=== PATIENT | male | born 1935 | race Caucasian/White ===

== ENCOUNTER 2016-11-17 13:51 | Emergency (ER) | payer OTHER, MEDICARE ==
[2016-11-17 13:59] VITALS: TEMP 97.6; BMI 28.7
--- NOTE | 2016-11-17 15:49 | PDOC ---
History of Present Illness - General Chief Complaint: Pain Stated Complaint: BLEEDING Time Seen by Provider: 11/17/16 14:50 History Source: Patient Exam Limitations: No Limitations - History of Present Illness Initial Comments: 11/17/16 15:49 81-year-old male presents to the ED with complaints of bleeding to the right inner aspect of foot after he took a shower while putting on his socks. Patient states that he applied pressure as Dr. Restrepo recommended since he has had this happen to him before in this specific area but bleeding did not stop and so called EMS. By the time EMS arrived bleeding has subsided but was brought here for further evaluation. Patient denies discomfort to the area, weakness, nausea , or dizziness. Patient states did not lose extremity amount of blood but curious why this has happened to him to 2 times prior. patient currently on aspirin. Timing/Duration: resolved prior to arrival Severity: mild Associated Symptoms: reports: denies symptoms Aspirin Received prior to arrival: Yes: 81 mg x 1 Past History - Past Medical History Allergies/Adverse Reactions: Allergies Allergy/AdvReac Type Severity Reaction Status Date / Time No Known Allergies Allergy Verified 11/17/16 13:54 Home Medications: Ambulatory Orders Ascorbate Calcium [Vitamin C] 1,000 mg PO DAILY 11/17/15 Aspirin Coated [Ecotrin -] 325 mg PO DAILY 11/17/15 Atorvastatin Ca [Lipitor -] 40 mg PO HS 11/17/15 Furosemide [Lasix -] 20 mg PO DAILY 11/17/15 Garlic 1,500 mg PO DAILY 11/17/15 Magnesium Oxide [Magnesium] 400 mg PO DAILY 11/17/15 Milk Thistle 500 mg PO BID 11/17/15 [place]-3S/Dha/Epa/Fish Oil [Fish Oil 1,200 mg Softgel] 1 each PO DAILY 11/17/15 Potassium Chloride [Klor-Con 10] 10 meq PO DAILY 11/17/15 Saw [place] 320 mg PO DAILY 11/17/15 Ubidecarenone/Vit E Acetate [Co Q-10 100 mg Softgel] 100 mg PO DAILY 11/17/15 Vitamin B Complex 1 each PO DAILY 11/17/15 Vitamin E 400 unit PO DAILY 11/17/15 Multivit-Min/FA/Lycopen/Lutein [Centrum Silver Tablet] 1 each PO DAILY 03/03/16 Tamsulosin HCl [Flomax] 0.4 mg PO DAILY 03/03/16 Valsartan/Hydrochlorothiazide [Valsartan-Hctz 160-12.5 mg Tab] 1 each PO DAILY 03/03/16 Acebutolol HCl [Sectral] 200 mg PO BID 11/17/16 Cancer: Yes (PROSTATE, BASAL CELL OF SKIN) Cardiac Disorders: Yes (PALPITATION, ARRYTHMIA) GI Disorders: Yes (GASTRITIS, HIATAL HERNIA, DIVERTICULOSIS, HEMORRHOIDS) Disorders: Yes (BPH) HTN: Yes Hypercholesterolemia: Yes - Surgical History Abdominal Surgery: Yes (PERFORATED STOMACH ULCER-PARTIAL GASTRECTOMY) - Immunization History Immunization Up to Date: Yes - Psycho/Social/Smoking Cessation Hx Anxiety: No Suicidal Ideation: No Smoking History: Former smoker Have you smoked in the past 12 months: No If you are a former smoker, when did you quit?: 30 YRS AGO Information on smoking cessation initiated: No Hx Alcohol Use: No Drug/Substance Use Hx: No Substance Use Type: None Patient Lives Alone: No Lives with/in: spouse/SO Review of Systems - Review of Systems Able to Perform ROS?: Yes Constitutional: No: Symptoms Reported HEENTM: No: Symptoms Reported Respiratory: No: Symptoms reported Cardiac (ROS): No: Symptoms Reported ABD/GI: No: Symptoms Reported : No: Symptoms Reported Musculoskeletal: No: Symptoms Reported Integumentary: Yes: Other Neurological: No: Symptoms reported Hematologic/Lymphatic: Yes: See HPI *Physical Exam - Vital Signs Last Vital Signs Temp Pulse Resp BP Pulse Ox 97.6 F 74 18 150/74 100 11/17/16 13:54 11/17/16 13:54 11/17/16 13:54 11/17/16 13:54 11/17/16 13:54 - Physical Exam General Appearance: Yes: Nourished, Appropriately Dressed. No: Apparent Distress HEENT: negative: Pale Conjunctivae Vascular Pulses: Dorsalis-Pedis (R): 2+ Extremity: positive: Normal Capillary Refill, Normal Inspection, Normal Range of Motion, Other (Noted multiple superficial varicosities to the aspect of right foot. No active bleeding from right inner heel where patient had bleeding prior to arrival). negative: Tender Integumentary: positive: Normal Color, Warm, Moist Neurologic: positive: Motor Strength 5/5 (ambulatory) Medical Decision Making - Medical Decision Making 11/17/16 15:50 Patient will bleeding varicosity that subsided prior to arrival. Patient is followed by Dr. Restrepo vascular surgeon due to superficial varicosities. Patient currently asymptomatic. Area redressed and cleansed. No active bleeding noted. Surgicel with Bioclusive placed in case bleeding reoccurs. 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 Please follow-up with Dr. Restrepo as discussed. Return to ED if symptoms recur.
[2016-11-17 16:10] VITALS: BP 132/72; PULSE 65
== END 2016-11-17 16:09 | disposition home or self-care (01) ==
LOC: JER 13:51
DX: I83.891 Varicose veins of right lower extremity with other complications (principal); Z87.891 Personal history of nicotine dependence; I10 Essential (primary) hypertension; R00.2 Palpitations; E78.00 Pure hypercholesterolemia, unspecified; Z85.46 Personal history of malignant neoplasm of prostate
CPT/HCPCS: 99283-25

== ENCOUNTER 2017-04-21 15:18 | Emergency (ER) | payer OTHER, MEDICARE ==
[2017-04-21 15:23] VITALS: BP 153/79; PULSE 82; TEMP 98.2; BMI 29.4
--- NOTE | 2017-04-21 15:50 | PDOC ---
History of Present Illness - General Chief Complaint: Pain Stated Complaint: URINARY COMPLICATIONS Time Seen by Provider: 04/21/17 15:27 History Source: Patient Exam Limitations: No Limitations - History of Present Illness Initial Comments: 04/21/17 15:33 CHIEF COMPLAINT: Red, irritations to the tip of the penis. HISTORY OF PRESENT ILLNESS: Patient is an 82 y/o male with history of HTN, high cholesterol basal cell carcinoma, prostate cancer. Patient presents with 2 day history of redness, irritation around the tip of the penis. Patient is uncircumcised, denies any sexual contact, denies any penile discharge or lesions. Denies urinary symptoms. NO back pain. Severity: Yes: mild Location: reports: genitalia Respiratory Risk Factors: reports: no cause identified Associated Symptoms: reports: other (fissures around the tip of the penis. ) Past History - Past Medical History Allergies/Adverse Reactions: Allergies Allergy/AdvReac Type Severity Reaction Status Date / Time No Known Allergies Allergy Verified 04/21/17 15:23 Home Medications: Ambulatory Orders Ascorbate Calcium [Vitamin C] 1,000 mg PO DAILY 11/17/15 Aspirin Coated [Ecotrin -] 325 mg PO DAILY 11/17/15 Atorvastatin Ca [Lipitor] 40 mg PO HS 11/17/15 Furosemide [Lasix -] 20 mg PO DAILY 11/17/15 Garlic 1,500 mg PO DAILY 11/17/15 Magnesium Oxide [Magnesium] 400 mg PO DAILY 11/17/15 Milk Thistle 500 mg PO BID 11/17/15 [place]-3S/Dha/Epa/Fish Oil [Fish Oil 1,200 mg Softgel] 1 each PO DAILY 11/17/15 Potassium Chloride [Klor-Con 10] 10 meq PO DAILY 11/17/15 Saw [place] 320 mg PO DAILY 11/17/15 Ubidecarenone/Vit E Acetate [Co Q-10 100 mg Softgel] 100 mg PO DAILY 11/17/15 Vitamin B Complex 1 each PO DAILY 11/17/15 Vitamin E 400 unit PO DAILY 11/17/15 Multivit-Min/FA/Lycopen/Lutein [Centrum Silver Tablet] 1 each PO DAILY 03/03/16 Tamsulosin HCl [Flomax -] 0.4 mg PO DAILY 03/03/16 Valsartan/Hydrochlorothiazide [Valsartan-Hctz 160-12.5 mg Tab] 1 each PO DAILY 03/03/16 Acebutolol HCl [Sectral] 200 mg PO BID 11/17/16 Nystatin Powder [Nystop Powder -] 30 gm TP TID #1 powder 04/21/17 Cancer: Yes (PROSTATE, BASAL CELL OF SKIN) Cardiac Disorders: Yes (PALPITATION, ARRYTHMIA) GI Disorders: Yes (GASTRITIS, HIATAL HERNIA, DIVERTICULOSIS, HEMORRHOIDS) Disorders: Yes (BPH) HTN: Yes Hypercholesterolemia: Yes - Surgical History Abdominal Surgery: Yes (PERFORATED STOMACH ULCER-PARTIAL GASTRECTOMY) - Immunization History Immunization Up to Date: Yes - Psycho/Social/Smoking Cessation Hx Anxiety: No Suicidal Ideation: No Smoking History: Former smoker Have you smoked in the past 12 months: No If you are a former smoker, when did you quit?: 40 YRS Information on smoking cessation initiated: No Hx Alcohol Use: No Drug/Substance Use Hx: No Substance Use Type: None Review of Systems - Review of Systems Constitutional: No: Symptoms Reported : No: Symptoms Reported Musculoskeletal: No: Symptoms Reported Integumentary: Yes: Erythema. No: Lesions, Rash Neurological: No: Symptoms reported Hematologic/Lymphatic: No: Symptoms Reported *Physical Exam - Vital Signs Last Vital Signs Temp Pulse Resp BP Pulse Ox 98.2 F 82 20 153/79 97 04/21/17 15:19 04/21/17 15:19 04/21/17 15:19 04/21/17 15:19 04/21/17 15:19 - Physical Exam General Appearance: Yes: Appropriately Dressed. No: Apparent Distress Gastrointestinal/Abdominal: positive: Normal Bowel Sounds, Soft. negative: Tender Male Genitalia: positive: normal genitalia, other (small areas of erythema with small fissures Irritation is superficial, there is no evidence of cellulitis. No swelling to tip of the penis.). negative: discharge, testicular tenderness, testicular mass, epididymus tender, inguinal hernia, hematuria Lymphatic: negative: Adenopathy Integumentary: positive: Erythema. negative: Rash, Swelling, Ecchymosis, Bruising Neurologic: positive: Alert, Normal Mood/Affect, Normal Response, Motor Strength 5/5 Medical Decision Making - Medical Decision Making 04/21/17 16:14 A/P : Patient here for evaluation of fissures to the tip of the penis. Most likely fungal in nature. Areas are tender. No open lesions. Will DC patient on nystatin powder. Follow up with dermatology or urology if symptoms are not getting better in two days. Patient verbalized understanding. Irritation is superficial, there is no evidence of cellulitis. No swelling to tip of the penis. *DC/Admit/Observation/Transfer Diagnosis at time of Disposition: Fissure in skin - Discharge Dispostion Disposition: HOME Condition at time of disposition: Stable Admit: No - Prescriptions Prescriptions: Nystatin Powder [Nystop Powder -] 30 gm TP TID #1 powder - Referrals Referrals: Enoc Pérez MD [Primary Care Provider] - Jabier Jackson MD [Staff Physician] - Shemar Hathaway [Non Staff, Medical] - (Dermatology [phone]) - Patient Instructions Additional Instructions: PLease keep area dry. No ointments or creams PLease apply powder three times a day. If symptoms do not start to resolve after 2-3 days, please follow-up with dermatology or urology.
== END 2017-04-21 16:07 | disposition home or self-care (01) ==
LOC: JERFT 15:18
DX: R23.4 Changes in skin texture (principal); I10 Essential (primary) hypertension; E78.00 Pure hypercholesterolemia, unspecified; Z85.46 Personal history of malignant neoplasm of prostate; Z85.828 Personal history of other malignant neoplasm of skin; N40.0 Benign prostatic hyperplasia without lower urinary tract symptoms; Z87.19 Personal history of other diseases of the digestive system
CPT/HCPCS: 99281-25

== ENCOUNTER 2017-05-09 06:48 | Emergency (ER) | payer OTHER, MEDICARE ==
[2017-05-09 07:19] VITALS: BP 144/70; PULSE 75; TEMP 97.5; BMI 30.4
--- NOTE | 2017-05-09 07:29 | PDOC ---
History of Present Illness - General History Source: Patient Exam Limitations: No Limitations - History of Present Illness Initial Comments: 05/09/17 07:43 The patient is a 82 year old male, with a significant past medical history of HTN, basal cell carcinoma, high cholesterol, BPH, and prostate CA, who presents to the emergency department with chest pain. The patient reports having an acute sudden onset of chest pain this morning around 4 am. He ranks his paina 6 /10 in pain intensity. The patient reports taking a treatment of nitro with good alleviation of pain. He denies any recent fevers, chills, headache or dizziness. He denies any recent nausea, vomit, diarrhea or constipation. He denies any recent shortness of breath. He denies any recent dysuria, frequency, urgency or hematuria. Allergies: NKA Past surgical history: See HPI Social History: Nonsmoker. Denies EtOH use and recreational drug use. 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: <Hero Hernandez - Last Filed: 05/09/17 11:02> <Sarahy Springer - Last Filed: 05/09/17 15:00> - General Chief Complaint: Chest Pain Stated Complaint: CHEST PAIN Time Seen by Provider: 05/09/17 07:15 Past History <Hero Hernandez - Last Filed: 05/09/17 11:02> - Past Medical History Cancer: Yes (PROSTATE, BASAL CELL OF SKIN) Cardiac Disorders: Yes (PALPITATION, ARRYTHMIA) GI Disorders: Yes (GASTRITIS, HIATAL HERNIA, DIVERTICULOSIS, HEMORRHOIDS) Disorders: Yes (BPH) HTN: Yes Hypercholesterolemia: Yes - Surgical History Abdominal Surgery: Yes (PERFORATED STOMACH ULCER-PARTIAL GASTRECTOMY) - Immunization History Immunization Up to Date: Yes - Psycho/Social/Smoking Cessation Hx Anxiety: No Suicidal Ideation: No Smoking History: Never smoked Have you smoked in the past 12 months: No If you are a former smoker, when did you quit?: 40 YRS Information on smoking cessation initiated: No Hx Alcohol Use: No Drug/Substance Use Hx: No Substance Use Type: None <Sarahy Springer - Last Filed: 05/09/17 15:00> - Past Medical History Allergies/Adverse Reactions: Allergies Allergy/AdvReac Type Severity Reaction Status Date / Time No Known Allergies Allergy Verified 05/09/17 07:03 Home Medications: Ambulatory Orders Ascorbate Calcium [Vitamin C] 1,000 mg PO DAILY 11/17/15 Aspirin Coated [Ecotrin -] 325 mg PO DAILY 11/17/15 Atorvastatin Ca [Lipitor] 40 mg PO HS 11/17/15 Furosemide [Lasix -] 20 mg PO Q48H 11/17/15 Garlic 1,500 mg PO DAILY 11/17/15 Magnesium Oxide [Magnesium] 400 mg PO DAILY 11/17/15 Milk Thistle 500 mg PO BID 11/17/15 [place]-3S/Dha/Epa/Fish Oil [Fish Oil 1,200 mg Softgel] 1 each PO DAILY 11/17/15 [place] 320 mg PO DAILY 11/17/15 Ubidecarenone/Vit E Acetate [Co Q-10 100 mg Softgel] 100 mg PO DAILY 11/17/15 Vitamin B Complex 1 each PO DAILY 11/17/15 Vitamin E 400 unit PO DAILY 11/17/15 Multivit-Min/FA/Lycopen/Lutein [Centrum Silver Tablet] 1 each PO DAILY 03/03/16 Valsartan/Hydrochlorothiazide [Valsartan-Hctz 160-12.5 mg Tab] 1 each PO BID 01/12 Review of Systems - Review of Systems Able to Perform ROS?: Yes Comments:: 05/09/17 07:41 GENERAL/CONSTITUTIONAL: No fever or chills. No weakness. HEAD, EYES, EARS, NOSE AND THROAT: No change in vision. No ear pain or discharge. No sore throat. CARDIOVASCULAR: +chest pain. No shortness of breath. RESPIRATORY: No cough, wheezing, or hemoptysis. GASTROINTESTINAL: No nausea, vomiting, diarrhea or constipation. GENITOURINARY: No dysuria, frequency, or change in urination. MUSCULOSKELETAL: No joint or muscle swelling or pain. No neck or back pain. SKIN: No rash NEUROLOGIC: No headache, vertigo, loss of consciousness, or change in strength/ sensation. ENDOCRINE: No increased thirst. No abnormal weight change. HEMATOLOGIC/LYMPHATIC: No anemia, easy bleeding, or history of blood clots. ALLERGIC/IMMUNOLOGIC: No hives or skin allergy. <Hero Hernandez - Last Filed: 05/09/17 11:02> *Physical Exam - Vital Signs Last Vital Signs Temp Pulse Resp BP Pulse Ox 97.5 F L 75 16 144/70 97 05/09/17 07:16 05/09/17 07:16 05/09/17 07:16 05/09/17 07:16 05/09/17 07:16 - Physical Exam Comments: 05/09/17 07:45 GENERAL: Awake, alert, and fully oriented, in no acute distress HEAD: No signs of trauma EYES: PERRLA, EOMI, sclera anicteric, conjunctiva clear ENT: Auricles normal inspection, hearing grossly normal, nares patent, oropharynx clear without exudates. Moist mucosa NECK: Normal ROM, supple, no lymphadenopathy, JVD, or masses LUNGS: Breath sounds equal, clear to auscultation bilaterally. No wheezes, and no crackles HEART: Regular rate and rhythm, normal S1 and S2, no murmurs, rubs or gallops. Well healed midline scars. ABDOMEN: Soft, nontender, normoactive bowel sounds. No guarding, no rebound. No masses. Well healed midline scars. EXTREMITIES: Normal range of motion, no edema. No clubbing or cyanosis. No cords, erythema, or tenderness NEUROLOGICAL: Cranial nerves II through XII grossly intact. Normal speech, normal gait SKIN: Warm, Dry, normal turgor, no rashes or lesions noted. <Hero Hernandez - Last Filed: 05/09/17 11:02> - Vital Signs Last Vital Signs Temp Pulse Resp BP Pulse Ox 97.5 F L 75 16 144/70 97 05/09/17 07:16 05/09/17 07:16 05/09/17 07:16 05/09/17 07:16 05/09/17 07:16 <Sarahy Springer - Last Filed: 05/09/17 15:00> ED Treatment Course - LABORATORY CBC & Chemistry Diagram: 05/09/17 07:52 05/09/17 07:52 - RADIOLOGY Radiograph Interpretation: 05/09/17 11:03 CHEST X_RAY impressions reported by : No acute disease in the chest. <Hero Hernandez - Last Filed: 05/09/17 11:02> - LABORATORY CBC & Chemistry Diagram: 05/09/17 07:52 05/09/17 07:52 <Sarahy Springer - Last Filed: 05/09/17 15:00> Medical Decision Making - Medical Decision Making 05/09/17 10:[address] Pérez via phone. Patient is well-known to him as well as Dr. Gerber. He was in Dr. Gerber's office 3 days ago. Will obtain second CE and if neg, will DC home. Discussed with patient, who agreed with plan. 05/09/17 12:20 Called to the bedside by patient, who was getting dressed, refused to stay for second enzyme. We had previously discussed it and he had agreed, but presently he wishes to leave. I explained that the workup is incomplete, and that the enzymes must be spaced by 6 hours, but he still refuses to stay. <Sarahy Springer - Last Filed: 05/09/17 15:00> *DC/Admit/Observation/Transfer - Attestations Scribe Attestion: 05/09/17 07:41 Documentation prepared by Hero Hernandez, acting as faculty i on call medical assistant for Sarahy Springer MD. <Hero Hernandez - Last Filed: 05/09/17 11:02> - Discharge Dispostion Admit: No <Sarahy Springer - Last Filed: 05/09/17 15:00> Diagnosis at time of Disposition: Chest pain Qualifiers: Chest pain type: unspecified Qualified Code(s): R07.9 - Chest pain, unspecified - Discharge Dispostion Disposition: HOME Condition at time of disposition: Stable - Referrals Referrals: Enoc Pérez MD [Primary Care Provider] - - Patient Instructions Printed Discharge Instructions: DI for Chest Pain Additional Instructions: FOLLOW UP WITH DR. PÉREZ IN 1-2 DAYS. RETURN TO THE ER IF YOU HAVE CHEST PAIN, SHORTNESS OF BREATH, OR ANY OTHER CONCERNING SYMPTOMS.
[2017-05-09 08:09] LABS: BASOPHIL 0.7 % (0-2.0); MCH 32.1 pg (25.7-33.7); MCHC 34.9 g/dl (32.0-35.9); MEAN PLT VOLUME 9.1 fl (7.5-11.1); NEUTROPHILS 59.8 % (42.8-82.8); PLATELET COUNT 118 K/MM3 (134-434); WHITE BLOOD COUNT 7.1 K/mm3 (4.0-10.0)
[2017-05-09 08:40] LABS: ALBUMIN 3.5 g/dl (3.4-5.0); ANION GAP 10 (8-16); BILIRUBIN,TOTAL 1.5 mg/dL (0.2-1.0); CALCIUM 8.1 mg/dL (8.5-10.1); CO2 29 mmol/L (21-32); CREATININE 0.7 mg/dL (0.7-1.3); GLUCOSE,RANDOM 103 mg/dL (74-106); SGPT/ALT 26 U/L (12-78); TOT PROT 6.2 g/dl (6.4-8.2)
[2017-05-09 08:43] LABS: ALK PHOS 59 U/L (45-117); CPK 140 IU/L (39-308); TROPONIN I 0.04 ng/ml (0.00-0.05)
[2017-05-09 08:46] LABS: SGOT/AST 24 U/L (15-37)
[2017-05-09] MEDS ORDERED: ACETAMINOPHEN 325 MG TABLET (FP) PO ONE (09:25)
[2017-05-09] MEDS ORDERED: ACETAMINOPHEN 325 MG TABLET (FP) ONE (09:28)
--- NOTE | 2017-05-09 09:41 | EKG ---
Test Reason : Blood Pressure : / mmHG Vent. Rate : 063 BPM Atrial Rate : 063 BPM P-R Int : 216 ms QRS Dur : 138 ms QT Int : 448 ms P-R-T Axes : 000 -11 -11 degrees QTc Int : 458 ms SINUS RHYTHM WITH 1ST DEGREE A-V BLOCK WITH PREMATURE ATRIAL COMPLEXES RIGHT BUNDLE BRANCH BLOCK MINIMAL VOLTAGE CRITERIA FOR LVH, MAY BE NORMAL VARIANT ABNORMAL ECG Confirmed by MD KYLIE, VIOLA ([id number]) on 05/09/2017 9:41:14 AM Referred By: Confirmed By:VIOLA ESPINAL MD
== END 2017-05-09 12:43 | disposition home or self-care (01) ==
LOC: JER 06:48
DX: R07.9 Chest pain, unspecified (principal); I10 Essential (primary) hypertension; N40.0 Benign prostatic hyperplasia without lower urinary tract symptoms; Z85.46 Personal history of malignant neoplasm of prostate; Z85.828 Personal history of other malignant neoplasm of skin; Z87.19 Personal history of other diseases of the digestive system; Z90.3 Acquired absence of stomach [part of]
CPT/HCPCS: 36415; 71010-TC; 80053; 83880; 84484; 85025; 93005; 93010; 99285-25

== ENCOUNTER 2017-07-26 07:23 | Day surgery (SDC) | payer OTHER, MEDICARE ==
[2017-07-23 11:51] VITALS: BMI 30.7
[2017-07-26] MEDS ORDERED: LIDOCAINE HCL/PF 1% SDV 5ML VIAL ONE (08:41)
[2017-07-26] MEDS ORDERED: PROPOFOL 20 ML ONE ×2 (08:41)
[2017-07-26 09:47] VITALS: TEMP 97.6
[2017-07-26 14:16] VITALS: BP 132/77; PULSE 63
--- NOTE | 2017-07-27 12:11 | PATH ---
Surgical Pathology Report Patient Name: CHASITY DAILEY [facility]. Rec. #: [id number] /Age/Gender: 1935 (Age: 82) / M Account: [id number] Location: U-ENDOSCOPY Taken: 07/26/2017 Received: 07/26/2017 Reported: 07/27/2017 Physicians: Lennox Mott M.D. Specimen(s) Received A: BX RECTAL POLYP B: BX DESCENDING COLON POLYP Clinical History Preoperative diagnosis: Constipation, colon cancer screening Postoperative diagnosis: Colon polyps, diverticulosis left colon Final Diagnosis A. COLON, RECTUM, BIOPSY: HYPERPLASTIC POLYP. B. COLON, DESCENDING, BIOPSY: COLONIC MUCOSA WITH BENIGN SUBMUCOSAL LYMPHOID AGGREGATE. NO ADENOMATOUS CHANGE IS IDENTIFIED. Electronically Signed Jose Antonio Gallardo M.D. Gross Description A. Received in formalin, labeled "biopsy rectal polyp" are 2 holcomb, irregular portions of soft tissue measuring 0.2 and 0.3 cm. in greatest dimension. The specimens are submitted in toto in one cassette. B. Received in formalin, labeled "biopsy descending colon polyp" is a holcomb, irregular portion of soft tissue measuring 0.3 cm. in greatest dimension. The specimen is submitted in toto in one cassette. 07/26/2017 saudi07/26/2017
== END 2017-07-26 12:10 | disposition home or self-care (01) ==
LOC: JASU-ENDO 07:23
PROVIDERS: ATTEND Internal Medicine Gastroenterology
PROC: 0DBP8ZX Excision of Rectum, Via Natural or Artificial Opening Endoscopic, Diagnostic (ICD-10-PCS; 2017-07-26)
PROC: 0DBM8ZX Excision of Descending Colon, Via Natural or Artificial Opening Endoscopic, Diagnostic (ICD-10-PCS; principal; 2017-07-26 09:00)
DX: Z12.11 Encounter for screening for malignant neoplasm of colon (principal); K62.1 Rectal polyp; K64.8 Other hemorrhoids; K63.5 Polyp of colon; D12.4 Benign neoplasm of descending colon
CPT/HCPCS: 88305-TC

== ENCOUNTER 2018-01-28 05:18 | Observation (INO) | payer OTHER, MEDICARE ==
--- NOTE | 2018-01-28 05:20 | PDOC ---
History of Present Illness - General Chief Complaint: Urinary Problem Stated Complaint: BURNING ON URINATION Time Seen by Provider: 01/28/18 05:20 Exam Limitations: Language Barrier (Patient is mainly [place] speaking) - History of Present Illness Initial Comments: 01/28/18 05:43 This 82-year-old male with a history of HTN/HLD/BPH/prostate carcinoma/ diverticular disease presents with a few week history of worsening lower abdominal pain and a few day history of dysuria/urinary frequency/urinary urgency. Patient describes pain as being in both lower quadrants, radiating to the flanks. He states that he was unable to sleep much last night secondary to the persistent discomfort in his lower abdomen. Patient last had 400 mg ibuprofen at 11:30 PM last night, taken for his pain (patient states that "it did not help much") Patient denies nausea/vomiting/fever or chills. He states that he has chronic constipation, worse for the last few weeks and has pain in his lower abdomen when bearing down. He has not had any blood per rectum or black stools. He has had decreased appetite but no weight loss. Patient has history of surgery for ulcers approximately 30 years ago. He denies chest pain, shortness of breath, cough Patient had MRI study of the lumbar spine yesterday to investigate his lower abdominal/pelvic pain Medications as noted No known ALLERGIES Patient is a former smoker (none 40 years). He denies alcohol or other recreational drug use. Patient lives alone Patient's PMD is Dr. Pérez Patient's real estate administrator is Dr Domingo Past History - Past Medical History Allergies/Adverse Reactions: Allergies Allergy/AdvReac Type Severity Reaction Status Date / Time No Known Allergies Allergy Verified 05/09/17 07:03 Home Medications: Ambulatory Orders Ascorbate Calcium [Vitamin C] 1,000 mg PO DAILY 11/17/15 Aspirin Coated [Ecotrin -] 325 mg PO DAILY 11/17/15 Atorvastatin Ca [Lipitor] 40 mg PO HS 11/17/15 Furosemide [Lasix -] 20 mg PO Q48H 11/17/15 Garlic 1,000 mg PO DAILY 11/17/15 Milk Thistle 500 mg PO BID 11/17/15 Saw [place] 320 mg PO DAILY 11/17/15 Vitamin B Complex 1 each PO DAILY 11/17/15 Vitamin E 400 unit PO DAILY 11/17/15 Multivit-Min/FA/Lycopen/Lutein [Centrum Silver Tablet] 1 each PO DAILY 03/03/16 Coenzyme K98-t-Ufgkndnsf-Cth E [Co Q-10 with l-Carnitine Sftgl] 1 each PO DAILY 07/23/17 Potassium Chloride [Klor-Con 10] 10 meq PO DAILY 07/23/17 Sectral 1 tab PO BID 07/23/17 Tamsulosin HCl [Flomax] 0.4 mg PO DAILY 07/23/17 [place]-3S/Dha/Epa/Fish Oil [Fish Oil 1,200 mg Softgel] 1 each PO DAILY 01/28/18 Sodium Chloride Tablet - 1 gm PO BID #14 tablet 01/29/18 Sodium Chloride Tablet - 1 gm PO BID #20 tablet 01/29/18 Valsartan [Diovan] 160 mg PO DAILY tablet 01/29/18 Valsartan [Diovan] 160 mg PO DAILY #30 tablet 01/29/18 Valsartan [Diovan] 160 mg PO DAILY #30 tablet 01/29/18 Anemia: No Asthma: No Cancer: Yes (PROSTATE, BASAL CELL OF SKIN) Cardiac Disorders: Yes (PALPITATION, ARRYTHMIA,ASHD CARDIAC CATH AND PES) CVA: No COPD: No CHF: No Dementia: No Diabetes: No GI Disorders: Yes (GASTRITIS, HIATAL HERNIA, DIVERTICULOSIS, HEMORRHOIDS;FUNDAL ULCER) Disorders: Yes (BPH) HTN: Yes Hypercholesterolemia: Yes Liver Disease: No Seizures: No Thyroid Disease: No - Surgical History Abdominal Surgery: Yes (PERFORATED STOMACH ULCER-PARTIAL GASTRECTOMY) Appendectomy: Yes Cardiac Surgery: No Cholecystectomy: No Lung Surgery: No Neurologic Surgery: No Orthopedic Surgery: No - Immunization History Immunization Up to Date: Yes - Suicide/Smoking/Psychosocial Hx Smoking History: Former smoker Have you smoked in the past 12 months: No If you are a former smoker, when did you quit?: 40 YRS Hx Alcohol Use: No Drug/Substance Use Hx: No Substance Use Type: None Hx Substance Use Treatment: No Review of Systems - Review of Systems Able to Perform ROS?: Yes Comments:: 12 point review of systems is negative except for what is noted in the history of present illness *Physical Exam - Physical Exam Comments: GENERAL: Elderly man, mainly [place] speaking, alert and oriented 3, in no acute distress HEAD: Normal with no signs of trauma. EYES: PERRLA, EOMI, sclera anicteric, conjunctiva clear. ENT: Ears normal, nares patent, oropharynx clear without exudates. Moist mucous membranes. NECK: Normal range of motion, supple without lymphadenopathy, JVD, or masses. LUNGS: Breath sounds equal, clear to auscultation bilaterally. No wheezes, and no crackles. HEART:Regular rate and rhythm, normal S1 and S2 without murmur, rub or gallop. ABDOMEN:.normal bowel sounds. Moderate bilateral lower quadrant tenderness without guarding or rebound.No masses No distention. EXTREMITIES: Normal range of motion, no edema. No clubbing or cyanosis. No erythema, or tenderness. Moderate nonpitting edema with venous stasis changes right greater than left lower leg NEUROLOGICAL: Cranial nerves II through XII grossly intact. Normal speech. No focal neurological deficits. MUSCULOSKELETAL: Mild tenderness to palpation sacroiliac spine bilaterally; no CVA/flank tenderness SKIN: Warm, Dry, normal turgor, no rashes or lesions noted. ED Treatment Course - LABORATORY CBC & Chemistry Diagram: 01/29/18 07:39 01/29/18 07:39 Medical Decision Making - Medical Decision Making 82-year-old man presents with a few week history of progressive bilateral lower abdominal discomfort and a few day history of urinary frequency/dysuria. Patient is afebrile ; abdominal exam notable for mild to moderate bilateral lower quadrant tenderness without peritoneal irritation signs. While urinary symptoms are very suggestive of urinary tract infection, in light of patient's history of diverticular disease, acute diverticulitis also possibility.Mesenteric ischemia also possible in this elderly patient with HTN/ HLD CBC/chemistry profile/UA sent. Review of patient's previous imaging study shows normal abdominal/pelvic CT 12/25; no evidence of acute diverticulitis or other acute injury or abdominal/ intrapelvic pathology. In light of worsening pain and bilateral lower abdominal tenderness, repeat abdominal/pelvic CT will be performed. MRI of lumbar spine performed yesterday has not yet been interpreted. 01/28/18 07:09 Care of this patient signed out to Dr Mejia at end of shift. *DC/Admit/Observation/Transfer Diagnosis at time of Disposition: Dilutional hyponatremia - Discharge Dispostion Disposition: HOME Condition at time of disposition: Stable - Prescriptions - Referrals - Patient Instructions - Post Discharge Activity
[2018-01-28 06:17] LABS: BASO % 0.7 % (0-2.0); EOS % 0.8 % (0-4.5); HEMATOCRIT 40.2 % (35.4-49); HEMOGLOBIN 14.6 GM/dL (11.7-16.9); LYMPH % 22.8 % (8-40); MCH 32.7 pg (25.7-33.7); MCHC 36.4 g/dl (32.0-35.9); MEAN CELL VOLUME 89.9 fl (80-96); MEAN PLT VOLUME 9.6 fl (7.5-11.1); MONO % 12.9 % (3.8-10.2); NEUT % 62.8 % (42.8-82.8); PLATELET COUNT 148 K/MM3 (134-434); RBC 4.47 M/mm3 (4.00-5.60); RDW 12.7 % (11.9-15.9); WHITE BLOOD COUNT 5.3 K/mm3 (4.0-10.0)
[2018-01-28 06:47] LABS: URINE APPEARANCE CLEAR; URINE BILIRUBIN NEGATIVE (<2.0 mg/dL); URINE COLOR LTYELLOW; URINE GLUCOSE (UA) NEGATIVE (NEGATIVE); URINE KETONE NEGATIVE (NEGATIVE); URINE LEUK ESTERASE NEGATIVE (NEGATIVE); URINE NITRITE NEGATIVE (NEGATIVE); URINE PROTEIN NEGATIVE (NEGATIVE); URINE UROBILINOGEN NEGATIVE mg/dL (0.2-1.0)
[2018-01-28 07:03] LABS: ALK PHOS 76 U/L (45-117); ANION GAP 10 (8-16); BLOOD UREA NITROGEN 14 mg/dL (7-18); CALCIUM 9.1 mg/dL (8.5-10.1); CHLORIDE 84 mmol/L (98-107); CO2 29 mmol/L (21-32); CREATININE 0.7 mg/dL (0.7-1.3); GLUCOSE,RANDOM 100 mg/dL (74-106); POTASSIUM 3.7 mmol/L (3.5-5.1); SGOT/AST 29 U/L (15-37); SGPT/ALT 28 U/L (12-78)
[2018-01-28] MEDS ORDERED: KETOROLAC TROMETHAMINE 30 MG/1 ML VIAL IVPUSH ONE (07:07)
[2018-01-28 07:08] LABS: SODIUM 123 mmol/L (136-145)
[2018-01-28] MEDS ORDERED: KETOROLAC TROMETHAMINE 30 MG/1 ML VIAL ONE (07:11)
--- NOTE | 2018-01-28 10:24 | PDOC ---
*Physical Exam - Vital Signs Last Vital Signs Temp Pulse Resp BP Pulse Ox 97.6 F 62 16 157/78 99 01/28/18 05:20 01/28/18 05:20 01/28/18 05:20 01/28/18 05:20 01/28/18 05:20 - Physical Exam Comments: 01/28/18 10:20 Care received at 0700 Briefly, pt here for months of b/l lower abd pain, worse overnight waking him out of sleep Pt is tender in lower quadrants b/l Pt ordered for CTAP, pending study Thus far, labs remarkable for hyponatremia to 123 which is new Spoke to his PMD Dr. Pérez, pt's sodium was 135 in November 2017 Pt admits to drinking 1 gallon of water per day, he appears euvolemic at this time Like hyponatremic 2/2 excessive water intake Will fluid restrict, admit In meantime, awaiting CTAP read for admission 01/28/18 11:24 CTAP not read yet, reading room called with no hot die picker discussed with receptionist secretary, she will check in with radiologists 01/28/18 12:43 CTAP wnl. Case discussed with ANJELICA Petty, pt accepted for admission Case discussed in detail with admitting physician including history, physical exam and ancillary studies. Admitting physician has assumed care for the patient, will follow all pending diagnostics and will complete the evaluation and treatment. ED Treatment Course - LABORATORY CBC & Chemistry Diagram: 01/28/18 05:50 01/28/18 05:50 - ADDITIONAL ORDERS Additional order review: Laboratory Results 01/28/18 01/28/18 05:50 05:30 Sodium 123 L* Potassium 3.7 Chloride 84 L Carbon Dioxide 29 Anion Gap 10 BUN 14 Creatinine 0.7 Creat Clearance w eGFR > 60 Random Glucose 100 Calcium 9.1 Total Bilirubin 1.0 D AST 29 D ALT 28 Alkaline Phosphatase 76 D Total Protein 7.0 Albumin 4.0 Urine Color Ltyellow Urine Appearance Clear Urine pH 7.0 Ur Specific [place] 1.011 Urine Protein Negative Urine Glucose (UA) Negative Urine Ketones Negative Urine Blood Negative Urine Nitrite Negative Urine Bilirubin Negative Urine Urobilinogen Negative Ur Leukocyte Esterase Negative 01/28/18 05:50 RBC 4.47 MCV 89.9 MCHC 36.4 H RDW 12.7 MPV 9.6 Neutrophils % 62.8 Lymphocytes % 22.8 Monocytes % 12.9 H Eosinophils % 0.8 Basophils % 0.7 - Medications Given in the ED: ED Medications Discontinued Medications Generic Name Dose Route Start Last Admin Trade Name Linda PRN Reason Stop Dose Admin Ketorolac Tromethamine 30 mg 01/28/18 07:07 01/28/18 07:15 Toradol Injection - IVPUSH 01/28/18 07:08 30 mg ONCE ONE Administration *DC/Admit/Observation/Transfer Diagnosis at time of Disposition: Dilutional hyponatremia - Discharge Dispostion Condition at time of disposition: Stable Decision to Admit order: Yes - Referrals - Patient Instructions - Post Discharge Activity - Attestations Physician Attestion: 01/28/18 12:43 I, Dr. Guicho Mejia MD, attest that this document has been prepared under my direction and personally reviewed by me in its entirety. I further attest, that it accurately reflects all work, treatment, procedures and medical decision -making performed by me.
[2018-01-28] MEDS ORDERED: ACETAMINOPHEN INJECTION 100 ML IVPB ONE (10:48)
[2018-01-28] MEDS ORDERED: ACETAMINOPHEN 1000 MG/100 ML VIAL (NON FORMULARY) IVPB ONE (10:53)
[2018-01-28] MEDS ORDERED: MAGNESIUM CITRATE 300 ML BOTTLE PO ONE (12:43)
[2018-01-28] MEDS ORDERED: MAGNESIUM CITRATE 300 ML BOTTLE ONE (12:58)
--- NOTE | 2018-01-28 13:50 | HP ---
Admitting History and Physical - Primary Care Physician PCP: Enoc Pérez - Admission Chief Complaint: abdominal pain History of Present Illness: This is an 82 year old male with pmhx of HTN/HLD/BPH/prostate carcinoma/ diverticular disease presented with worsening lower abdominal pain now radiating to the low back. Per ED record, pt took ibuprofen without much help, he also has chronic constipation which has been worse in the past few weeks causing lower abdominal pain when he bears down. States he had hernia surgery several years ago. Patient had MRI study of the lumbar spine yesterday to investigate his lower abdominal/pelvic pain Patient's PMD is Dr. Pérez Patient's collection officer is Dr Domingo History Source: Patient, Medical Record Limitations to Obtaining History: No Limitations - Past Medical History Cardiovascular: Yes: HTN, Hyperlipdemia Gastrointestinal: Yes: Diverticulosis Renal/: Yes: BPH Heme/Onc: Yes: Other (prostate ca) - Past Surgical History Past Surgical History: Yes: Hernia Repair - Smoking History Smoking history: Former smoker Have you smoked in the past 12 months: No If you are a former smoker, when did you quit?: 40 YRS - Alcohol/Substance Use Hx Alcohol Use: No History of Substance Use: reports: None - Social History Usual Living Arrangement: Yes: Alone ADL: Independent Home Medications - Allergies Allergies/Adverse Reactions: Allergies Allergy/AdvReac Type Severity Reaction Status Date / Time No Known Allergies Allergy Verified 05/09/17 07:03 - Home Medications Home Medications: Ambulatory Orders Ascorbate Calcium [Vitamin C] 1,000 mg PO DAILY 11/17/15 Aspirin Coated [Ecotrin -] 325 mg PO DAILY 11/17/15 Atorvastatin Ca [Lipitor] 40 mg PO HS 11/17/15 Furosemide [Lasix -] 20 mg PO Q48H 11/17/15 Garlic 1,000 mg PO DAILY 11/17/15 Milk Thistle 500 mg PO BID 11/17/15 Saw [place] 320 mg PO DAILY 11/17/15 Vitamin B Complex 1 each PO DAILY 11/17/15 Vitamin E 400 unit PO DAILY 11/17/15 Multivit-Min/FA/Lycopen/Lutein [Centrum Silver Tablet] 1 each PO DAILY 03/03/16 Coenzyme V06-d-Jjdjbebki-Ycm E [Co Q-10 with l-Carnitine Sftgl] 1 each PO DAILY 07/23/17 Potassium Chloride [Klor-Con 10] 10 meq PO DAILY 07/23/17 Sectral 1 tab PO BID 07/23/17 Tamsulosin HCl [Flomax] 0.4 mg PO DAILY 07/23/17 Valsartan/Hydrochlorothiazide [Valsartan-Hctz 160-12.5 mg Tab] 1 each PO BID [place]-3S/Dha/Epa/Fish Oil [Fish Oil 1,200 mg Softgel] 1 each PO DAILY 01/28/18 Review of Systems - Review of Systems Constitutional: reports: No Symptoms Eyes: reports: No Symptoms HENT: reports: No Symptoms Neck: reports: No Symptoms Cardiovascular: reports: No Symptoms Respiratory: reports: No Symptoms Gastrointestinal: reports: Abdominal Pain Genitourinary: reports: No Symptoms Musculoskeletal: reports: Back Pain Integumentary: reports: No Symptoms Neurological: reports: No Symptoms Endocrine: reports: No Symptoms Hematology/Lymphatic: reports: No Symptoms Psychiatric: reports: No Symptoms Physical Examination Vital Signs: Vital Signs Temperature 97.6 F 01/28/18 11:11 Pulse Rate 65 01/28/18 11:11 Respiratory Rate 16 01/28/18 11:11 Blood Pressure 179/85 01/28/18 11:11 O2 Sat by Pulse Oximetry (%) 99 01/28/18 11:11 Constitutional: Yes: No Distress Eyes: Yes: Conjunctiva Clear HENT: Yes: Atraumatic Neck: Yes: Supple Cardiovascular: Yes: Regular Rate and Rhythm, S1, S2 Respiratory: Yes: Regular, CTA Bilaterally Gastrointestinal: Yes: Normal Bowel Sounds, Soft, Other (midline incision, reproducible hernia) Renal/: Yes: WNL Musculoskeletal: Yes: Back Pain Extremities: Yes: WNL Edema: Yes Edema: LLE: Trace, RLE: Trace Neurological: Yes: Alert, Oriented, Cran Nerves II-XII Intact Psychiatric: Yes: Alert, Oriented Labs: CBC, BMP 01/28/18 05:50 01/28/18 05:50 Imaging - Results Chest X-ray: Report Reviewed Problem List - Problems (1) Lower abdominal pain Code(s): R10.30 - LOWER ABDOMINAL PAIN, UNSPECIFIED (2) Dilutional hyponatremia Code(s): E87.1 - HYPO-OSMOLALITY AND HYPONATREMIA Assessment/Plan Assessment: 82 year old male presented with abdominal pain, found to be hyponatremic Plan: 1. Hyponatremia - Pt is asymptomatic - Pt states he drink 1 gl of water /day as told for constipation - Fluid restrict 1L - Start salt tabs 1mg bid - Send urine and serum osm, urine sodium - Recheck bmp today at 1800 - Hold home diuretics - Nephrology to see 2. Lower abdominal pain - Due to constipation, ctap neg for acute pathology - Mag citrate given in ED 3. HTN - Hold HCTZ, Lasix - Continue losartan 160mg daily 4. DVT - Lovenox sq Visit type - Emergency Visit Emergency Visit: Yes Care time: The patient presented to the Emergency Department on the above date and was hospitalized for further evaluation of their emergent condition. - New Patient This patient is new to me today: Yes Date on this admission: 01/28/18 - Critical Care Critical Care patient: No Hospitalist Screening - Colonoscopy Questionnaire Colonoscopy Questionnaire: Colonoscopy Questionnaire - Patient: 50 - 75 years old and never had a screening colonoscopy: Unknown History of colon or rectal polyps, or CA: Unknown History of IBD, Crohn's disease or UC: Unknown History of abdominal radiation therapy as a child: Unknown - Relative: 1 with colon or rectal CA, or polyps at age 60 or younger: Unknown Colon or rectal CA diagnosed at age 45 or younger: Unknown Multiple relatives with colon or rectal CA: Unknown - Outcome: Screening Result: Negative Screen
[2018-01-28] MEDS ORDERED: VALSARTAN 160 MG TABLET (UD) PO SCH (13:57)
[2018-01-28 16:03] VITALS: BMI 28.3
--- NOTE | 2018-01-28 17:36 | CONSULT ---
Consult - text type - Consultation Consultation Note: Renal Consult for Hyponatreima Home Medications Medication Instructions Recorded Ascorbate Calcium [Vitamin C] 1,000 mg PO DAILY 11/17/15 Aspirin Coated [Ecotrin -] 325 mg PO DAILY 11/17/15 Atorvastatin Ca [Lipitor] 40 mg PO HS 11/17/15 Furosemide [Lasix -] 20 mg PO Q48H 11/17/15 Garlic 1,000 mg PO DAILY 11/17/15 Milk Thistle 500 mg PO BID 11/17/15 Saw [place] 320 mg PO DAILY 11/17/15 Vitamin B Complex 1 each PO DAILY 11/17/15 Vitamin E 400 unit PO DAILY 11/17/15 Multivit-Min/FA/Lycopen/Lutein 1 each PO DAILY 03/03/16 [Centrum Silver Tablet] Coenzyme G23-r-Jexlzrxjh-Tdg E [Co 1 each PO DAILY 07/23/17 Q-10 with l-Carnitine Sftgl] Potassium Chloride [Klor-Con 10] 10 meq PO DAILY 07/23/17 Sectral 1 tab PO BID 07/23/17 Tamsulosin HCl [Flomax] 0.4 mg PO DAILY 07/23/17 Valsartan/Hydrochlorothiazide 1 each PO BID 07/23/17 [Valsartan-Hctz 160-12.5 mg Tab] [place]-3S/Dha/Epa/Fish Oil [Fish 1 each PO DAILY 01/28/18 Oil 1,200 mg Softgel] Vital Signs Temperature 97.6 F 01/28/18 15:52 Pulse Rate 63 01/28/18 15:52 Respiratory Rate 18 01/28/18 15:52 Blood Pressure 170/69 01/28/18 15:52 O2 Sat by Pulse Oximetry (%) 99 01/28/18 11:11 Intake & Output 01/25/18 01/26/18 01/27/18 01/28/18 23:59 23:59 23:59 23:59 Intake Total 300 Output Total 550 Balance -250 Weight 87.101 kg CBC, BMP 01/28/18 05:50 01/28/18 05:50 Current Medications Acetaminophen (Ofirmev Injection -) 1,000 mg IVPB Q6H PRN PRN Reason: PAIN LEVEL 1-5 Aspirin (Ecotrin -) 325 mg PO DAILY SIDNEY Atorvastatin Calcium (Lipitor -) 40 mg PO HS SIDNEY Enoxaparin Sodium (Lovenox -) 40 mg SQ DAILY SIDNEY Sodium Chloride (Sodium Chloride Tablet -) 1 gm PO BID SIDNEY Tamsulosin HCl (Flomax -) 0.4 mg PO DAILY@0830 SIDNEY Valsartan (Diovan -) 160 mg PO DAILY SIDNEY #Evolemic Hyponatremia r/o SIADH vs. ADH release in setting of Thaizide diuretic Urine and serum OSM pending continue fluid restriction repeat BMP this evening on salt tabs BID no indication for 3% saline would d/c HCTZ from outpatient meds Thank you Aric Turner DO full consult pending
[2018-01-28] MEDS: SODIUM CHLORIDE 1 GM TABLET PO SCH ×2 (17:37→21:29)
[2018-01-28 18:56] LABS: ANION GAP 6 (8-16); BLOOD UREA NITROGEN 12 mg/dl (7-18); CALCIUM 8.8 mg/dl (8.4-10.2); CHLORIDE 84 mmol/L (98-107); CO2 32 mmol/L (22-28); GLUCOSE,RANDOM 103 mg/dl (74-106); POTASSIUM 3.7 mmol/L (3.5-5.1)
[2018-01-28 19:05] LABS: SODIUM 122 mmol/L (136-145)
[2018-01-28 19:09] LABS: CREATININE < 0.8 mg/dl (0.6-1.3)
[2018-01-28] MEDS: ACETAMINOPHEN 1000 MG/100 ML VIAL (NON FORMULARY) IVPB PRN (21:03)
[2018-01-28] MEDS ORDERED: ATORVASTATIN CA 40 MG TABLET (FP) PO SCH (22:00)
[2018-01-29] MEDS: ACETAMINOPHEN 1000 MG/100 ML VIAL (NON FORMULARY) IVPB PRN (03:30)
[2018-01-29 07:07] VITALS: BP 147/63; PULSE 57; TEMP 97.9
[2018-01-29 07:56] LABS: BASO % 0.5 % (0-2.0); EOS % 0.8 % (0-4.5); HEMATOCRIT 42.6 % (35.4-49); HEMOGLOBIN 14.6 GM/dl (11.7-16.9); LYMPH % 21.2 % (8-40); MCH 32.5 pg (25.7-33.7); MCHC 34.3 g/dl (32.0-35.9); MEAN CELL VOLUME 94.7 fl (80-96); MEAN PLT VOLUME 8.4 fl (7.5-11.1); MONO % 13.2 % (3.8-10.2); NEUT % 64.3 % (42.8-82.8); PLATELET COUNT 142 K/MM3 (134-434); WHITE BLOOD COUNT 5.2 K/mm3 (4.0-10.8)
[2018-01-29] MEDS ORDERED: TAMSULOSIN HCL 0.4 MG CAP.ER.24H (FP) PO SCH (08:30)
[2018-01-29 08:34] LABS: ANION GAP 7 (8-16); BLOOD UREA NITROGEN 11 mg/dl (7-18); CALCIUM 8.7 mg/dl (8.4-10.2); CHLORIDE 90 mmol/L (98-107); CO2 30 mmol/L (22-28); GLUCOSE,RANDOM 108 mg/dl (74-106); MAGNESIUM 2.2 mg/dL (1.8-2.4); PHOSPHOROUS 3.5 mg/dl (2.5-4.6); POTASSIUM 3.4 mmol/L (3.5-5.1); SODIUM 127 mmol/L (136-145)
[2018-01-29 08:39] LABS: CREATININE < 0.8 mg/dl (0.6-1.3)
[2018-01-29] MEDS ORDERED: POTASSIUM CHLORIDE TABS 20 MEQ TABLET.ER (FP) PO ONE (09:05)
--- NOTE | 2018-01-29 09:20 | DS ---
Physical Exam: SUBJECTIVE: Patient seen and examined OBJECTIVE: Vital Signs Period Temp Pulse Resp BP Sys/Jean-Baptiste Pulse Ox Last 24 Hr 97.6 F-98.0 F 57-66 16-18 147-179/61-85 99-99 PHYSICAL EXAM GENERAL: The patient is awake, alert, and fully oriented, in no acute distress. HEAD: Normal with no signs of trauma. EYES: PERRL, extraocular movements intact, sclera anicteric, conjunctiva clear. ENT: Ears normal, nares patent, oropharynx clear without exudates, moist mucous membranes. NECK: Trachea midline, full range of motion, supple. LUNGS: Breath sounds equal, clear to auscultation bilaterally, no wheezes, no crackles, no accessory muscle use. HEART: Regular rate and rhythm, S1, S2 without murmur, rub or gallop. ABDOMEN: Soft, nontender, nondistended, normoactive bowel sounds, no guarding, no rebound, no hepatosplenomegaly, no masses. EXTREMITIES: 2+ pulses, warm, well-perfused, no edema. NEUROLOGICAL: Cranial nerves II through XII grossly intact. Normal speech, gait not observed. PSYCH: Normal mood, normal affect. SKIN: Warm, dry, normal turgor, no rashes or lesions noted. LABS Laboratory Results - last 24 hr 01/28/18 01/28/18 01/28/18 14:12 14:12 16:00 WBC RBC Hgb Hct MCV MCH MCHC RDW Plt Count MPV Neutrophils % Lymphocytes % Monocytes % Eosinophils % Basophils % Sodium 122 L* Potassium 3.7 Chloride 84 L Carbon Dioxide 32 H Anion Gap 6 L BUN 12 Creatinine < 0.8 Random Glucose 103 Serum Osmolality 253 L Calcium 8.8 Phosphorus Magnesium Urine Osmolality 364 Ur Random Sodium 36 01/29/18 01/29/18 07:39 07:39 WBC 5.2 RBC 4.50 Hgb 14.6 Hct 42.6 MCV 94.7 MCH 32.5 MCHC 34.3 RDW 12.0 Plt Count 142 MPV 8.4 Neutrophils % 64.3 Lymphocytes % 21.2 Monocytes % 13.2 H Eosinophils % 0.8 Basophils % 0.5 Sodium 127 L Potassium 3.4 L Chloride 90 L Carbon Dioxide 30 H Anion Gap 7 L BUN 11 Creatinine < 0.8 Random Glucose 108 H Serum Osmolality Calcium 8.7 Phosphorus 3.5 Magnesium 2.2 Urine Osmolality Ur Random Sodium HOSPITAL COURSE: Date of Admission:01/28/18 Date of Discharge: 01/29/18 Discharge Summary Reason For Visit: HYPONATREMIA Current Active Problems Dilutional hyponatremia (Acute) Lower abdominal pain (Acute) Condition: Stable - Instructions Diet, Activity, Other Instructions: Mr. Red: You were admitted to [facility] on 01/28/2018 for hyponatremia ( low sodium in the blood). Your blood sodium count has improved but we have made a few changes/additions to your medications: 1. STOP taking the Vasartan/Hydroclorothiozide medication, START taking Diovan 160mg daily for hypertension, it has been called into your pharmacy. 2. START taking salt tablets: Sodium 1 gram tablets in the morning and in the evenings, take this medication for at least 1 week and have repeat blood levels done with your primary care doctor next week. 3. Limit the amount of water that you are drinking to 1 liter per day until you have repeat blood work. For your right hip discomfort, we recommend that you take Tylenol 650mg every 6- 8 hours and apply Bengay. We have applied a LIdoderm Patch to your right hip to help with the discomfort. These can be purchased over the counter and are called "Lidocaine Patches". Please see Dr. Pérez next week for follow up. Please call us with any questions that you may have. Disposition: HOME - Home Medications Comprehensive Discharge Medication List: Ambulatory Orders Ascorbate Calcium [Vitamin C] 1,000 mg PO DAILY 11/17/15 Aspirin Coated [Ecotrin -] 325 mg PO DAILY 11/17/15 Atorvastatin Ca [Lipitor] 40 mg PO HS 11/17/15 Furosemide [Lasix -] 20 mg PO Q48H 11/17/15 Garlic 1,000 mg PO DAILY 11/17/15 Milk Thistle 500 mg PO BID 11/17/15 Saw [place] 320 mg PO DAILY 11/17/15 Vitamin B Complex 1 each PO DAILY 11/17/15 Vitamin E 400 unit PO DAILY 11/17/15 Multivit-Min/FA/Lycopen/Lutein [Centrum Silver Tablet] 1 each PO DAILY 03/03/16 Coenzyme G14-k-Eqnhozrts-Ibt E [Co Q-10 with l-Carnitine Sftgl] 1 each PO DAILY 07/23/17 Potassium Chloride [Klor-Con 10] 10 meq PO DAILY 07/23/17 Sectral 1 tab PO BID 07/23/17 Tamsulosin HCl [Flomax] 0.4 mg PO DAILY 07/23/17 [place]-3S/Dha/Epa/Fish Oil [Fish Oil 1,200 mg Softgel] 1 each PO DAILY 01/28/18 Sodium Chloride Tablet - 1 gm PO BID #20 tablet 01/29/18 Valsartan [Diovan] 160 mg PO DAILY tablet 01/29/18 Valsartan [Diovan] 160 mg PO DAILY #30 tablet 01/29/18
[2018-01-29] MEDS ORDERED: ASPIRIN 325 MG ENTERIC COATED TABLET (FP) PO SCH (10:00)
[2018-01-29] MEDS ORDERED: LIDOCAINE 5% TOPICAL PATCH TP SCH (10:00)
[2018-01-29] MEDS ORDERED: ENOXAPARIN NA (PORCINE) 40 MG/0.4 ML DISP.SYRIN SQ SCH (10:00)
[2018-01-29] MEDS ORDERED: VALSARTAN 160 MG TABLET (UD) PO SCH (10:00)
[2018-01-29] MEDS ORDERED: LIDOCAINE PATCH REMOVAL MC SCH (22:00)
--- NOTE | 2018-01-30 22:40 | EKG ---
Test Reason : Blood Pressure : / mmHG Vent. Rate : 060 BPM Atrial Rate : 060 BPM P-R Int : 288 ms QRS Dur : 140 ms QT Int : 432 ms P-R-T Axes : 025 -19 -14 degrees QTc Int : 432 ms SINUS RHYTHM WITH SINOATRIAL EXIT BLOCK RIGHT BUNDLE BRANCH BLOCK MINIMAL VOLTAGE CRITERIA FOR LVH, MAY BE NORMAL VARIANT ABNORMAL ECG WHEN COMPARED WITH ECG OF 09-MAY-2017 07:06, PREMATURE ATRIAL COMPLEXES ARE NO LONGER PRESENT Confirmed by JOSEPHINE ANTONY MD ([id number]) on 01/30/2018 10:40:13 PM Referred By: BEATRICE Confirmed By:JOSEPHINE ANTONY MD
== END 2018-01-29 12:45 | disposition home or self-care (01) ==
LOC: FER 05:18 → FM/S 12:43
PROVIDERS: ADMIT Internal Medicine; ATTEND Nurse Practitioner Family
PROC: 3E0333Z Introduction of Anti-inflammatory into Peripheral Vein, Percutaneous Approach (ICD-10-PCS; principal; 2018-01-28)
PROC: 3E0337Z Introduction of Electrolytic and Water Balance Substance into Peripheral Vein, Percutaneous Approach (ICD-10-PCS; 2018-01-28)
PROC: 3E013GC Introduction of Other Therapeutic Substance into Subcutaneous Tissue, Percutaneous Approach (ICD-10-PCS; 2018-01-28)
DX: E87.1 Hypo-osmolality and hyponatremia (principal); R10.9 Unspecified abdominal pain; I10 Essential (primary) hypertension; I25.10 Atherosclerotic heart disease of native coronary artery without angina pectoris; E78.5 Hyperlipidemia, unspecified; N40.0 Benign prostatic hyperplasia without lower urinary tract symptoms; Z85.46 Personal history of malignant neoplasm of prostate; Z85.828 Personal history of other malignant neoplasm of skin; Z79.82 Long term (current) use of aspirin; Z98.61 Coronary angioplasty status; Z87.891 Personal history of nicotine dependence; Z90.3 Acquired absence of stomach [part of]
CPT/HCPCS: 36415; 74177-TC; 80048; 80053; 81003; 83735; 83930; 83935; 84100; 84300; 85025; 87086; 93005; 96372; 96374; 96375; 96376; 99283-25; G0378; J0131

== ENCOUNTER 2018-08-06 21:26 | Emergency (ER) | payer OTHER, MEDICARE ==
--- NOTE | 2018-08-06 22:26 | PDOC ---
History of Present Illness - General Chief Complaint: Injury Stated Complaint: FALL, BACK PAIN, FACIAL PAIN Time Seen by Provider: 08/06/18 21:38 - History of Present Illness Initial Comments: 08/06/18 22:25 Patient is an 83 year old male with past medical history of HTN, HLD, BPH, Prostate Ca, diverticulosis, multilevel degenerative disc disease, presented with right maxillary abrasion, right middle finger wound and right rib pain after a fall. Patient reported he was walking, felt a little dizzy, lost his balance and fell to his knees, hands and face. He denies any loss of consciousness, reporting people were around to help him up. He then drove himself to the hospital. At the ED, patient reports right rib pain and finger wound. Otherwise, denies headache, confusion, weakness, numbness, tingling, chest pain, SOB, palpitations, fever, chills, abdominal pain, urinary symptoms. Past History - Past Medical History Allergies/Adverse Reactions: Allergies Allergy/AdvReac Type Severity Reaction Status Date / Time No Known Allergies Allergy Verified 02/25/18 04:55 Home Medications: Ambulatory Orders Ascorbate Calcium [Vitamin C] 1,000 mg PO DAILY 11/17/15 Aspirin Coated [Ecotrin -] 325 mg PO DAILY 11/17/15 Atorvastatin Ca [Lipitor] 40 mg PO HS 11/17/15 Furosemide [Lasix -] 20 mg PO Q48H 11/17/15 Garlic 1,000 mg PO DAILY 11/17/15 Milk Thistle 500 mg PO BID 11/17/15 Saw [place] 320 mg PO DAILY 11/17/15 Vitamin B Complex 1 each PO DAILY 11/17/15 Vitamin E 400 unit PO DAILY 11/17/15 Multivit-Min/FA/Lycopen/Lutein [Centrum Silver Tablet] 1 each PO DAILY 03/03/16 Coenzyme B92-i-Rbjyzxqas-Aky E [Co Q-10 with l-Carnitine Sftgl] 1 each PO DAILY 07/23/17 Potassium Chloride [Klor-Con 10] 10 meq PO DAILY 07/23/17 Sectral 1 tab PO BID 07/23/17 Tamsulosin HCl [Flomax] 0.4 mg PO DAILY 07/23/17 [place]-3S/Dha/Epa/Fish Oil [Fish Oil 1,200 mg Softgel] 1 each PO DAILY 01/28/18 Sodium Chloride Tablet - 1 gm PO BID #14 tablet 01/29/18 Sodium Chloride Tablet - 1 gm PO BID #20 tablet 01/29/18 Valsartan [Diovan] 160 mg PO DAILY tablet 01/29/18 Valsartan [Diovan] 160 mg PO DAILY #30 tablet 01/29/18 Valsartan [Diovan] 160 mg PO DAILY #30 tablet 01/29/18 traMADol HCL [Ultram -] 50 mg PO Q6H PRN #12 tablet MDD 4 tabs 02/25/18 Anemia: No Asthma: No Cancer: Yes (PROSTATE, BASAL CELL OF SKIN) Cardiac Disorders: Yes (PALPITATION, ARRYTHMIA,ASHD CARDIAC CATH AND PES) CVA: No COPD: No CHF: No Dementia: No Diabetes: No GI Disorders: Yes (GASTRITIS, HIATAL HERNIA, DIVERTICULOSIS, HEMORRHOIDS;FUNDAL ULCER) Disorders: Yes (BPH) HTN: Yes Hypercholesterolemia: Yes Liver Disease: No Seizures: No Thyroid Disease: No - Surgical History Abdominal Surgery: Yes (PERFORATED STOMACH ULCER-PARTIAL GASTRECTOMY) Appendectomy: Yes Cardiac Surgery: No Cholecystectomy: No Lung Surgery: No Neurologic Surgery: No Orthopedic Surgery: No - Immunization History Immunization Up to Date: Yes - Suicide/Smoking/Psychosocial Hx Smoking History: Never smoked Have you smoked in the past 12 months: No If you are a former smoker, when did you quit?: 40 YRS Hx Alcohol Use: No Drug/Substance Use Hx: No Substance Use Type: None Hx Substance Use Treatment: No Trauma Specific PMHX - Complaint Specific PMHX Back Injury: No Neck Injury: No Review of Systems - Review of Systems Constitutional: No: Chills, Fever, Malaise, Weakness HEENTM: No: Recent change in vision, Nose Congestion, Hearing Loss, Throat Swelling Respiratory: No: Cough, Shortness of Breath Cardiac (ROS): No: Chest Pain, Lightheadedness, Palpitations ABD/GI: No: Abdominal Distended, Diarrhea, Nausea, Vomiting : No: Burning, Dysuria Musculoskeletal: Yes: See HPI Integumentary: Yes: See HPI Neurological: No: Headache, Numbness, Tingling, Weakness *Physical Exam - Physical Exam Comments: 08/06/18 22:35 General: awake, alert, oriented, not in acute distress Head: +abrasion and erythema on the right maxillary area HEENT: PERRLA, EOMI, sclerae anicteric, no nasal discharge, non-erythematous oropharynx, moist mucous membranes Neck:soft, supple, trachea midline without thyromegaly Lungs:clear to auscultation bilaterally Heart:regular rate and rhythm, normal S1/S2, no m,r,g Abdomen:soft, nontender, nondistended, NABS Ext:+2 pulses, no peripheral edema; Right hand: +skin tear on distal third finger, right Neuro: AAOx4, CN II-XII intact, motor strength 5/5, sensation intact, no dysmetria, walks with a cane Medical Decision Making - Medical Decision Making 08/06/18 22:40 Patient is an 83 year old male with past medical history of HTN, HLD, BPH, Prostate Ca, diverticulosis, multilevel degenerative disc disease, presented with right maxillary abrasion, right middle finger wound and right rib pain after a fall. CXR, right rib xray, right hand xray Tylenol 650 mg for pain Boostrix 0.5mg IM once Head CT and Facial bone CT ordered to rule out bleeding and fractures but patient refused multiple times and repeatedly reports feeling fine. *DC/Admit/Observation/Transfer Diagnosis at time of Disposition: Finger fracture, right, Right rib fracture Fall Qualifiers: Encounter type: initial encounter Qualified Code(s): W19.XXXA - Unspecified fall, initial encounter - Discharge Dispostion Disposition: HOME Condition at time of disposition: Stable Decision to Admit order: No - Referrals Referrals: Daryl Bhakta MD [Staff Physician] - - Patient Instructions Printed Discharge Instructions: How to Prevent Falls, DI for Rib Fracture, DI for Finger Fracture Additional Instructions: You were seen because you fell on your knees, hands and face. Xray of your right hand showed a fracture on your ring finger. A splinter was placed to keep it stable. Do not take off the splinter until you have followed up with the hand doctor. Call the office of the hand surgeon (Dr. Bhakta) on Wednesday to schedule an appointment. Take Motrin 600mg 4 times a day as needed for pain. Please call [phone] for the official read of your xrays. Follow-up with your primary care doctor within 1 week. Call 911 or go to the ED if with any worsening fever, chills, dizziness, headache, shortness of breath or any new concerns noted. - Post Discharge Activity
[2018-08-06] MEDS ORDERED: ACETAMINOPHEN 325 MG TABLET (FP) PO ONE (22:27)
[2018-08-06] MEDS ORDERED: DIPHTH,PERTUSS(ACELL),TET 0.5 ML DISP.SYRIN IM ONE ×2 (22:28→22:32)
[2018-08-06] MEDS ORDERED: ACETAMINOPHEN 325 MG TABLET (FP) ONE (22:31)
[2018-08-06 22:50] VITALS: BP 160/83; PULSE 71; TEMP 98; BMI 29.5
--- NOTE | 2018-08-06 23:20 | PDOC ---
Attending Attestation - Resident Resident Name: Kimi Virgen - ED Attending Attestation I have performed the following: I have examined & evaluated the patient, The case was reviewed & discussed with the resident, I agree w/resident's findings & plan, Exceptions are as noted - HPI HPI: 08/06/18 23:08 83 year old male with past medical history of degenerative disc disease, hypertension, hyperlipidemia, BPH, prostate cancer, diverticulosis, chronic constipation present with mechanical fall. The patient reports chronic dizziness that is unchanged. The patient states that he lost his footing and fell and landed on his right hand and face. Denies loss of consciousness. Patient does take 325 mg aspirin. Denies pain or headache. Sustained a small abrasion to the right cheek. Patient also and his right ribs. Patient sustained a small skin tear of the right third digit of the distal tip of the finger. Patient also sustained pain at the fourth distal right digit. Denies to faculty breathing. Patient is ambulatory. Has no other complaints. - Physicial Exam PE: 08/06/18 23:08 GENERAL: Awake, alert, and fully oriented, in no acute distress HEAD: No racooon eyes, septal hematoma, no miller sign. No lacerations or abrasions. Small 3x3 cm ecchymosis to right cheek. No loose teeth. EYES: PERRLA, EOMI, sclera anicteric, conjunctiva clear ENT: Auricles normal inspection, hearing grossly normal, nares patent,. Moist mucosa NECK: Normal ROM, supple, no c-spine tenderness LUNGS: Breath sounds equal, clear to auscultation bilaterally. No wheezes, and no crackles HEART: Regular rate and rhythm, normal S1 and S2, no murmurs, rubs or gallops ABDOMEN: Soft, nontender, . No guarding, no rebound. No masses PELVIS: Stable, nontender. RIBS: Approx 9 thru 11 right lateral rib tenderness to palpation. No obvious flail chest noted. EXTREMITIES: Normal range of motion, no edema. No clubbing or cyanosis. No cords, erythema, or tenderness Small abrasion to 3rd distal right digit. [place] neck deformity at DIP of 4th digit. Unable to fully extend 4th left digit at DIP. NEUROLOGICAL: Cranial nerves II through XII grossly intact. Normal speech, normal gait. Full strength and sensation throughout. Gait without difficulty. SKIN: Warm, Dry, normal turgor, no rashes or lesions noted. - Medical Decision Making 08/06/18 23:09 Vital Signs Temp Pulse Resp BP Pulse Ox 98.0 F 71 16 160/83 99 08/06/18 21:26 1218 21:26 08/06/18 21:26 08/06/18 21:26 08/06/18 21:26 This is an 83-year-old male with mechanical fall. Will need to update tetanus status for abrasion to 3rd right digit. I'm concerned for the swan neck deformity and 4th digit tendon injury at DIP. Pt placed in finger splint. I have expressed my concerns for obtain a head and facial CT. However, after a lengthy discussion, the patient does not want radiation to his head. I advised the risks of missing a fracture or ICH. However, pt reports he has no headache, nausea, vomiting, or symptoms, and absolutely does not want head CT. Pt able to repeat risks to me and has capacity. Will defer on imaging of head and face at request of the patient. Will r/o R ribs fracture and right 4th digit fracture. Pain control and reassess. 08/06/18 23:26 Finger radiograph reviewed by me, pending official radiology read. Small dorsal fracture at 4th DIP. Pt instructed to keep splint on at all times and follow up with hand surgery for outpatient management. 08/07/18 00:05 Xrays reviewed by me, pending official read. No fractures. Pt noted with nondisplaced R sided rib fracture 6th rib NSAIDs for pain control. Discharge diagnosis: Fracture DIP 4th digit and Ribs fracture 08/07/18 00:14 Will have patient follow up with hand and Dr. Pérez. Return precautions given for PNA.
== END 2018-08-07 00:29 | disposition home or self-care (01) ==
LOC: JER 21:26
PROC: 2W3JX1Z Immobilization of Right Finger using Splint (ICD-10-PCS; principal; 2018-08-06)
DX: S62.602A Fracture of unspecified phalanx of right middle finger, initial encounter for closed fracture (principal); S22.31XA Fracture of one rib, right side, initial encounter for closed fracture; W18.39XA Other fall on same level, initial encounter; Y93.89 Activity, other specified; Y92.89 Other specified places as the place of occurrence of the external cause; I10 Essential (primary) hypertension; E78.5 Hyperlipidemia, unspecified; N40.0 Benign prostatic hyperplasia without lower urinary tract symptoms; Z85.46 Personal history of malignant neoplasm of prostate; M19.90 Unspecified osteoarthritis, unspecified site
CPT/HCPCS: 29130; 71045-TC-FY; 71101-TC-RT-FY; 73140-TC-RT-FY; 90715; 99282-25

== ENCOUNTER 2018-10-13 06:56 | Inpatient (IN) | payer OTHER, MEDICARE ==
--- NOTE | 2018-10-13 07:12 | PDOC ---
History of Present Illness - General History Source: Patient Exam Limitations: No Limitations - History of Present Illness Initial Comments: HPI: 83 y/o male presenting to [facility] ER complaining of feeling very bad with weakness and dizziness for the past two weeks. Pt is a poor historian and had difficulty elaborating or explaining what he was experiencing. Endorses multiple falls over this period but unable to recall any details about the events. States his walking is no good. Endorses multiple days of vague right sided headache but does not relate this to the falls. States he has not been eating for several days but cannot explain why. Lives alone without familial support. His friend called an ambulance this morning for unknown reason. Pt was evaluated at this facility for weakness, dizziness, and a fall in July 2018. Was found to have possibly fractured his right fourth digit. Old left sided rib fractures were seen on CXR and rib series. No acute chest pathology was noted. Medical Hx: - HTN - HLD - BPH s/p TRUP - Diabetes - Peripheral vascular disease s/p femoral vascular stent in L leg - PSVT - RBBB - Diverticulosis - Multilevel degenerative disc disease - H/o ruptured bleeding gastric ulcer in abdomen in 1980s <Alex Hernandez - Last Filed: 10/13/18 10:27> <Luz Maria Schaffer - Last Filed: 10/13/18 13:57> - General Chief Complaint: Lightheaded Stated Complaint: DIZZINESS Time Seen by Provider: 10/13/18 07:11 Past History - Past Medical History Anemia: No Asthma: No Cancer: Yes (PROSTATE, BASAL CELL OF SKIN) Cardiac Disorders: Yes (PALPITATION, ARRYTHMIA,ASHD CARDIAC CATH AND PES) CVA: No COPD: No CHF: No Dementia: No Diabetes: No GI Disorders: Yes (GASTRITIS, HIATAL HERNIA, DIVERTICULOSIS, HEMORRHOIDS;FUNDAL ULCER) Disorders: Yes (BPH) HTN: Yes Hypercholesterolemia: Yes Liver Disease: No Seizures: No Thyroid Disease: No - Surgical History Abdominal Surgery: Yes (PERFORATED STOMACH ULCER-PARTIAL GASTRECTOMY) Appendectomy: Yes Cardiac Surgery: No Cholecystectomy: No Lung Surgery: No Neurologic Surgery: No Orthopedic Surgery: No - Immunization History Immunization Up to Date: Yes - Suicide/Smoking/Psychosocial Hx Smoking History: Never smoked Have you smoked in the past 12 months: No If you are a former smoker, when did you quit?: 40 YRS Information on smoking cessation initiated: No Hx Alcohol Use: No Drug/Substance Use Hx: No Substance Use Type: None Hx Substance Use Treatment: No <Alex Hernandez - Last Filed: 10/13/18 10:27> <Luz Maria Schaffer - Last Filed: 10/13/18 13:57> - Past Medical History Allergies/Adverse Reactions: Allergies Allergy/AdvReac Type Severity Reaction Status Date / Time No Known Allergies Allergy Verified 10/13/18 07:05 Home Medications: Ambulatory Orders Ascorbate Calcium [Vitamin C] 1,000 mg PO DAILY 11/17/15 Aspirin Coated [Ecotrin -] 325 mg PO DAILY 11/17/15 Atorvastatin Ca [Lipitor] 40 mg PO HS 11/17/15 Furosemide [Lasix -] 20 mg PO Q48H 11/17/15 Garlic 1,000 mg PO DAILY 11/17/15 Milk Thistle 500 mg PO BID 11/17/15 Saw [place] 320 mg PO DAILY 11/17/15 Vitamin B Complex 1 each PO DAILY 11/17/15 Vitamin E 400 unit PO DAILY 11/17/15 Multivit-Min/FA/Lycopen/Lutein [Centrum Silver Tablet] 1 each PO DAILY 03/03/16 Coenzyme H24-w-Idydxqfln-Fct E [Co Q-10 with l-Carnitine Sftgl] 1 each PO DAILY 07/23/17 Potassium Chloride [Klor-Con 10] 10 meq PO DAILY 07/23/17 Sectral 1 tab PO BID 07/23/17 Tamsulosin HCl [Flomax] 0.4 mg PO DAILY 07/23/17 [place]-3S/Dha/Epa/Fish Oil [Fish Oil 1,200 mg Softgel] 1 each PO DAILY 01/28/18 Sodium Chloride Tablet - 1 gm PO BID #14 tablet 01/29/18 Valsartan [Diovan] 160 mg PO DAILY #30 tablet 01/29/18 traMADol HCL [Ultram -] 50 mg PO Q6H PRN #12 tablet MDD 4 tabs 02/25/18 Ibuprofen [Motrin -] 600 mg PO QID PRN #28 tablet 08/07/18 Review of Systems - Review of Systems Able to Perform ROS?: No Comments:: Pt refused to answer ROS questions. Would redirect back to his initial stated complaints. <Alex Hernandez - Last Filed: 10/13/18 10:27> *Physical Exam - Vital Signs Last Vital Signs Temp Pulse Resp BP Pulse Ox 99.0 F 68 18 151/69 96 10/13/18 07:05 10/13/18 07:05 10/13/18 07:05 10/13/18 07:05 10/13/18 07:05 - Physical Exam Comments: Constitutional: Non-toxic, obese elderly male in no acute distress or obvious discomfort. Found semi-fowlers on hospital bed. Alert and oriented x4. Answered questions with vague responses. Speech was non-labored, non-pressured. Head: Normocephalic. No obvious external signs of trauma. Eyes: Pupils 3mm and PERRL bilaterally. Sclerae white. Conjunctiva moist and not injected. Ears: Hearing grossly intact. Nose: No nasal discharge. Throat: Oral cavity and pharynx normal. No inflammation, swelling, exudate, or lesions. Moist mucosal membranes. Neck: Supple, trachea is midline. Cardiovascular: Regular rate and regular rhythm. No murmur, rubs, clicks, or gallops. Peripheral pulses: Radial pulses full. Respiratory: Breathing unlabored. Equal chest rise and fall. Clear to auscultation bilaterally. No stridor, no wheezing, no rhonchi. Gastrointestinal: abdomen is tender in LUQ with grimace but no rebound or guarding. Globally, abdomen is soft and nondistended. No pulsatile masses. Old appearing post surgical scar in midline extending from top of abdomen to umbilicus. No obvious signs of trauma. Neuro: Alert and oriented. Moving all four extremities spontaneously. Upper and lower extremities: proximal and distal strength 5/5. Personal Property Assessor strength 5/5 - equal and symmetric. Plantar flexion and dorsiflexion 5/5. No nuchal rigidity. Skin: Warm and dry. No obvious acute injuries. No bleeding. Psych: Affect: appropriate. Mood: normal. <Alex Hernandez - Last Filed: 10/13/18 10:27> - Vital Signs Last Vital Signs Temp Pulse Resp BP Pulse Ox 96.4 F L 62 16 139/71 98 10/13/18 11:29 10/13/18 11:29 10/13/18 11:29 10/13/18 11:29 10/13/18 08:35 <Luz Maria Schaffer - Last Filed: 10/13/18 13:57> Moderate Sedation - Procedure Monitoring Vital Signs: Procedure Monitoring Vital Signs Temperature 99.0 F 10/13/18 07:05 Pulse Rate 68 10/13/18 07:05 Respiratory Rate 18 10/13/18 07:05 Blood Pressure 151/69 10/13/18 07:05 O2 Sat by Pulse Oximetry (%) 96 10/13/18 07:05 <Alex Hernandez - Last Filed: 10/13/18 10:27> - Procedure Monitoring Vital Signs: Procedure Monitoring Vital Signs Temperature 96.4 F L 10/13/18 11:29 Pulse Rate 62 10/13/18 11:29 Respiratory Rate 16 10/13/18 11:29 Blood Pressure 139/71 10/13/18 11:29 O2 Sat by Pulse Oximetry (%) 98 10/13/18 08:35 <Luz Maria Schaffer - Last Filed: 10/13/18 13:57> ED Treatment Course - LABORATORY CBC & Chemistry Diagram: 10/13/18 08:03 10/13/18 08:03 <Alex Hernandez - Last Filed: 10/13/18 10:27> - LABORATORY CBC & Chemistry Diagram: 10/13/18 08:03 10/13/18 08:03 - ADDITIONAL ORDERS Additional order review: Laboratory Results 10/13/18 10/13/18 08:03 08:03 Sodium 117 L* Potassium 3.1 L Chloride 77 L Carbon Dioxide 31 Anion Gap 9 BUN 13 Creatinine 0.7 Creat Clearance w eGFR > 60 Random Glucose 110 H Calcium 8.2 L Phosphorus 2.6 Magnesium 1.7 L Total Bilirubin 1.5 H AST 22 ALT 21 Alkaline Phosphatase 55 Creatine Kinase 98 Troponin I 0.05 Total Protein 5.9 L Albumin 3.4 TSH 1.31 10/13/18 08:03 RBC 4.08 MCV 90.5 MCHC 36.9 H RDW 12.7 MPV 9.1 Neutrophils % 64.9 Lymphocytes % 18.2 Monocytes % 16.1 H Eosinophils % 0.4 Basophils % 0.4 - Medications Given in the ED: ED Medications Discontinued Medications Generic Name Dose Route Start Last Admin Trade Name Freq PRN Reason Stop Dose Admin Dextrose/Lactated Ringer's 1,000 mls @ 0 mls/hr 10/13/18 08:18 10/13/18 08:34 D5-Lr - IV 10/13/18 08:19 1,000 mls/hr ONCE ONE Administration Wide Open Potassium Chloride 10 meq in 100 mls @ 100 mls/hr 10/13/18 09:15 10/13/18 10: 24 Potassium Chloride 10 Meq Premix Ivpb - IVPB 10/13/18 12:14 100 mls/hr Q60M SIDNEY Administration Influenza Virus Vaccine Quadrival 60 mcg 10/13/18 11:40 10/13/18 13:24 Flulaval Quad [id number] IM 10/13/18 11:41 60 mcg .ONCE ONE Administration Magnesium Sulfate 2 gm 10/13/18 09:11 10/13/18 09:29 Magnesium Sulfate IVPB 10/13/18 09:12 2 gm ONCE ONE Administration <Luz Maria Schaffer - Last Filed: 10/13/18 13:57> *DC/Admit/Observation/Transfer - Discharge Dispostion Decision to Admit order: Yes <Alex Hernandez - Last Filed: 10/13/18 10:27> - Discharge Dispostion Decision to Admit order Date/Time: 10/13/18 13:57 <Luz Maria Schaffer - Last Filed: 10/13/18 13:57> Diagnosis at time of Disposition: Hyponatremia, Dizziness, Fall in elderly patient - Discharge Dispostion Condition at time of disposition: Stable
--- NOTE | 2018-10-13 07:44 | PDOC ---
Attending Attestation - Resident Resident Name: Alex Hernandez - ED Attending Attestation I have performed the following: I have examined & evaluated the patient, The case was reviewed & discussed with the resident, I agree w/resident's findings & plan - HPI HPI: 10/13/18 09:10 83 year old male with past medical history of HTN, HLD, BPH, Prostate Ca, diverticulosis, multilevel degenerative disc disease, PVD, bleeding ulcer presenting with 2 wk history of weakness and dizziness, associated with falls, last fall 2 days ago. associated with poor PO intake PMD Dr Pérez - Physicial Exam PE: 10/13/18 09:10 NAD, malaised, PERRL, EOMI, dry mucus membranes, nl conjunctiva, anicteric; neck supple. no C spine tenderness. lungs clear, RRR, abdomen soft +Left upper and epigastric TTP. midline vertical abdominal surgical scar. no palp hernia. [place] x4, no focal neuro deficits. No peripheral edema. normal color for ethnicity , WWP. +LLE venous stasis dermatitis changes - Medical Decision Making 10/13/18 08:19 See HPI for details Vital signs reviewed, wnl. DDx. ACS, arrhythmia, infection, dehydration, electrolyte/metabolic derangements , head bleed/ injury, intra abdominal injury vs infection. Prior notes reviewed, including admissions, discharges and consultations. laboratory results and imaging reviewed, basic labs and lytes notable for severe hyponatremia 117, but normal mental status and no sz. likely hypovolemic given poor PO intake, so will give gentle hydration, replete low K and Mg and recheck. urine and lytes pending CXR_no acute chest pathology. Cardiac panel_neg trop EKG normal sinus rhythm, no interval abnormalities, Wide QRS, ST and T wave segments and morphology normal. Nonspecific T wave abnormalities - old RBBB, unchanged from prior ED course: IVF hydration. poor PO intake repletions with Mg and K-ridur x3 runs similar episode of hyponatremia in 2016, started on salt tabs at that time and attributed to diuretic use vs hypovolemia. urine lytes pending nephro cs in patient with Dr Corbett, prior nephro eval for same issue refused CT head and A/P - has capacity to make decision, understanding indications, risks and benefits of imaging and not imaging. doubt intra abdominal injury ~2 days out from fall or head injury with normal mental status , defer to inpatient team in pursuant of imaging. dispo: admit to Dr Pérez for hyponatremia. agree to plan of management inpatient nephro cs and monitoring of lytes. 10/13/18 13:57 Heart Score/ECG Review - ECG Impressions Normal ECG: No Comment:: 10/13/18 08:20 EKG normal sinus rhythm, no interval abnormalities, Wide QRS, ST and T wave segments and morphology normal. Nonspecific T wave abnormalities - old RBBB, unchanged from prior
[2018-10-13] MEDS ORDERED: DEXTROSE 5%-LACTATED RINGERS 1,000 ML IV ONE (08:18)
[2018-10-13 08:57] LABS: ALBUMIN 3.4 g/dl (3.4-5.0); ALK PHOS 55 U/L (45-117); ANION GAP 9 MMOL/L (8-16); BILIRUBIN,TOTAL 1.5 mg/dL (0.2-1); BLOOD UREA NITROGEN 13 mg/dL (7-18); CALCIUM 8.2 mg/dL (8.5-10.1); CHLORIDE 77 mmol/L (98-107); CO2 31 mmol/L (21-32); CREATININE 0.7 mg/dL (0.55-1.3); GLUCOSE,RANDOM 110 mg/dL (74-106); POTASSIUM 3.1 mmol/L (3.5-5.1); SGOT/AST 22 U/L (15-37); SGPT/ALT 21 U/L (13-61); TOT PROT 5.9 g/dl (6.4-8.2)
[2018-10-13 09:00] LABS: MAGNESIUM 1.7 mg/dL (1.8-2.4); PHOSPHOROUS 2.6 mg/dL (2.5-4.9); SODIUM 117 mmol/L (136-145)
[2018-10-13] MEDS ORDERED: MAGNESIUM SULF 50% (8.12 MEQ/2 ML-1 GM VIAL) IVPB ONE (09:11)
[2018-10-13] MEDS ORDERED: KCL 10 MEQ IVPB 30 MEQ/300 ML INFUS.BAG IVPB ONE (09:15)
[2018-10-13] MEDS ORDERED: MAGNESIUM 1GM/D5W - 2 GM/200 ML IVPB IVPB ONE (09:15)
[2018-10-13] MEDS: KCL 10 MEQ IVPB 10 MEQ/100 ML INFUS.BAG IVPB SCH ×3 (09:34→14:00)
[2018-10-13 10:23] LABS: BASO % 0.4 % (0-2.0); EOS % 0.4 % (0-4.5); HEMATOCRIT 36.9 % (35.4-49); HEMOGLOBIN 13.6 GM/dL (11.7-16.9); LYMPH % 18.2 % (8-40); MCH 33.4 pg (25.7-33.7); MEAN CELL VOLUME 90.5 fl (80-96); MEAN PLT VOLUME 9.1 fl (7.5-11.1); MONO % 16.1 % (3.8-10.2); NEUT % 64.9 % (42.8-82.8); PLATELET COUNT 152 K/MM3 (134-434); RBC 4.08 M/mm3 (4.00-5.60); RDW 12.7 % (11.9-15.9)
[2018-10-13 10:25] LABS: MCHC 36.9 g/dl (32.0-35.9)
[2018-10-13 10:30] LABS: URINE APPEARANCE CLEAR; URINE BILIRUBIN NEGATIVE (<2.0 mg/dL); URINE COLOR LTYELLOW; URINE GLUCOSE (UA) 2+ (NEGATIVE); URINE KETONE NEGATIVE (NEGATIVE); URINE LEUK ESTERASE NEGATIVE (NEGATIVE); URINE NITRITE NEGATIVE (NEGATIVE); URINE PROTEIN NEGATIVE (NEGATIVE); URINE UROBILINOGEN NEGATIVE mg/dL (0.2-1.0)
[2018-10-13 10:44] LABS: URINE BACTERIA RARE /hpf (NONE SEEN)
[2018-10-13 11:39] VITALS: BMI 31.6
[2018-10-13] MEDS ORDERED: FLU VACCINE QUAD 60 MCG/0.5 ML (MDV 18-19) IM ONE (11:40)
--- NOTE | 2018-10-13 15:39 | EKG ---
Test Reason : Blood Pressure : / mmHG Vent. Rate : 064 BPM Atrial Rate : 064 BPM P-R Int : 190 ms QRS Dur : 158 ms QT Int : 474 ms P-R-T Axes : 007 -08 -12 degrees QTc Int : 489 ms NORMAL SINUS RHYTHM RIGHT BUNDLE BRANCH BLOCK ABNORMAL ECG WHEN COMPARED WITH ECG OF 28-JAN-2018 10:31, QT HAS LENGTHENED Confirmed by BROOK MARTINEZ MD ([id number]) on 10/13/2018 3:39:24 PM Referred By: Confirmed By:BROOK MARTINEZ MD
--- NOTE | 2018-10-13 15:56 | HP ---
Admitting History and Physical - Admission Chief Complaint: 83 y.o M was admited to [facility] for dizziness, gait imbalance, falls. He was found to have Na 117 and hypokalemia. History of Present Illness: HTN previously on Diovan HCT 160/12.5 whic was changed to Diovan 160. Unclear what meds t5hew patient was taking, SVT's - AVN re-entrant tachycardia.on Acetobutolol, RBBB. 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 Mild DM 2 Osteoporosis HLD BPH, S/P TURP LE varicose veins PAD LE. B/l SFA obstructive atherosclerotic plaques. Stent left femoral artery. Gastrectomy for perforated ulcer. 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 No: Seizure Cardiovascular: Yes: HTN, Hyperlipdemia Gastrointestinal: Yes: Diverticulosis, Peptic Ulcer Disease Renal/: Yes: BPH Heme/Onc: Yes: Other (prostate ca) Musculoskeletal: Yes: Chronic low back pain - Past Surgical History Past Surgical History: Yes: Hernia Repair - Smoking History Smoking history: Never smoked Have you smoked in the past 12 months: No If you are a former smoker, when did you quit?: 45 YRS - Alcohol/Substance Use Hx Alcohol Use: No History of Substance Use: reports: None - Social History ADL: Independent Home Medications - Allergies Allergies/Adverse Reactions: Allergies Allergy/AdvReac Type Severity Reaction Status Date / Time No Known Allergies Allergy Verified 10/13/18 07:05 - Home Medications Home Medications: Ambulatory Orders Ascorbate Calcium [Vitamin C] 1,000 mg PO DAILY 11/17/15 Aspirin Coated [Ecotrin -] 325 mg PO DAILY 11/17/15 Atorvastatin Ca [Lipitor] 40 mg PO HS 11/17/15 Furosemide [Lasix -] 20 mg PO Q48H 11/17/15 Garlic 1,000 mg PO DAILY 11/17/15 Milk Thistle 500 mg PO BID 11/17/15 Saw Wilber 320 mg PO DAILY 11/17/15 Vitamin B Complex 1 each PO DAILY 11/17/15 Vitamin E 400 unit PO DAILY 11/17/15 Multivit-Min/FA/Lycopen/Lutein [Centrum Silver Tablet] 1 each PO DAILY 03/03/16 Coenzyme [id number]-[id number] E [Co Q-10 with l-Carnitine Sftgl] 1 each PO DAILY 07/23/17 Potassium Chloride [Klor-Con 10] 10 meq PO DAILY 07/23/17 Sectral 1 tab PO BID 07/23/17 Tamsulosin HCl [Flomax] 0.4 mg PO DAILY 07/23/17 [place]-3S/Dha/Epa/Fish Oil [Fish Oil 1,200 mg Softgel] 1 each PO DAILY 01/28/18 Sodium Chloride Tablet - 1 gm PO BID #14 tablet 01/29/18 Valsartan [Diovan] 160 mg PO DAILY #30 tablet 01/29/18 traMADol HCL [Ultram -] 50 mg PO Q6H PRN #12 tablet MDD 4 tabs 02/25/18 Ibuprofen [Motrin -] 600 mg PO QID PRN #28 tablet 08/07/18 Review of Systems - Review of Systems Constitutional: reports: Loss of Appetite, Weakness Eyes: reports: Blurred Vision HENT: denies: Difficult Swallowing, Ear Discharge Neck: denies: Decreased ROM, Lumps, Pain on Movement Cardiovascular: denies: Chest Pain, Edema, Palpitations, Shortness of Breath Respiratory: denies: Cough, Exercise Intolerance, SOB, SOB on Exertion Gastrointestinal: denies: Abdominal Pain, Bloating, Vomiting Genitourinary: denies: Burning, Discharge Breasts: reports: No Symptoms Reported Musculoskeletal: reports: Back Pain, Extremity Pain (RLE) Endocrine: reports: No Symptoms Hematology/Lymphatic: reports: No Symptoms Psychiatric: reports: Altered Sleep Pattern, Anxiety, Depression, Panic. denies : Hallucinations, Paranoia, Suicidal Physical Examination Vital Signs: Vital Signs Temperature 97.7 F 10/13/18 15:00 Pulse Rate 63 10/13/18 15:00 Respiratory Rate 17 10/13/18 15:00 Blood Pressure 116/51 L 10/13/18 15:00 O2 Sat by Pulse Oximetry (%) 98 10/13/18 08:35 Constitutional: Yes: Anxious, Mild Distress Eyes: Yes: Conjunctiva Clear, EOM Intact HENT: Yes: Atraumatic, Normocephalic. No: Drooling Neck: Yes: Supple, Trachea Midline. No: Decreased ROM, Lymphadenopathy Cardiovascular: Yes: Regular Rate and Rhythm, S1, S2. No: Bradycardia, Tachycardia Respiratory: Yes: Regular, CTA Bilaterally Gastrointestinal: Yes: Normal Bowel Sounds, Soft, Abdomen, Obese, Other (healed midline scar) ...Rectal Exam: Yes: Deferred. No: Sphincter Tone Poor Renal/: No: Anuria, Bladder Distention, CVA Tenderness - Right Breast(s): Yes: WNL Musculoskeletal: Yes: Back Pain Extremities: No: Amputation, Calf Tenderness, Cold, Deformity, Erythema Edema: Yes Edema: LLE: Trace, RLE: Trace Peripheral Pulses WNL: No Integumentary: Yes: WNL Neurological: Yes: Alert, Oriented. No: Aphasia, Confusion, Cran Nerves II-XII Intact, Facial Droop, Lethargy, Loss of Sensation, Pre-Existing Deficit, Seizure , Tingling ...Motor Strength: WNL Psychiatric: Yes: WNL Labs: CBC, BMP 10/13/18 08:03 10/13/18 08:03
[2018-10-13] MEDS: ACETAMINOPHEN 325 MG TABLET (FP) PO PRN (16:57)
[2018-10-13 17:37] LABS: POTASSIUM 3.1 mmol/L (3.5-5.1)
[2018-10-13] MEDS ORDERED: POTASSIUM CHLORIDE TABS 20 MEQ TABLET.ER (FP) PO ONE ×2 (19:30→23:30)
[2018-10-13] MEDS: ATORVASTATIN CA 40 MG TABLET (FP) PO SCH (21:53)
[2018-10-13] MEDS ORDERED: SECTRAL PO SCH (22:00)
[2018-10-14 07:23] LABS: ALK PHOS 52 U/L (45-117); ANION GAP 7 MMOL/L (8-16); BILIRUBIN,TOTAL 1.2 mg/dL (0.2-1); BLOOD UREA NITROGEN 11 mg/dL (7-18); CALCIUM 7.7 mg/dL (8.5-10.1); CHLORIDE 87 mmol/L (98-107); CO2 28 mmol/L (21-32); CREATININE 0.6 mg/dL (0.55-1.3); GLUCOSE,RANDOM 99 mg/dL (74-106); MAGNESIUM 2.4 mg/dL (1.8-2.4); POTASSIUM 4.2 mmol/L (3.5-5.1); SGOT/AST 18 U/L (15-37); SGPT/ALT 18 U/L (13-61); SODIUM 123 mmol/L (136-145); TOT PROT 5.5 g/dl (6.4-8.2)
--- NOTE | 2018-10-14 07:46 | PN ---
Progress Note, Physician Chief Complaint: Sodium improved 123 K repleted Pt still week and unsteady No BM x5 days History of Present Illness: HTN previously on Diovan HCT 160/12.5 whic was changed to Diovan 160. Unclear what meds t5hew patient was taking, SVT's - AVN re-entrant tachycardia.on Acetobutolol, RBBB. 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 Mild DM 2 Osteoporosis HLD BPH, S/P TURP LE varicose veins PAD LE. B/l SFA obstructive atherosclerotic plaques. Stent left femoral artery. Gastrectomy for perforated ulcer. Thrombocytopenia Hyponatremia with Na 128 - Current Medication List Current Medications: Active Medications Acetaminophen (Tylenol -) 325 mg PO Q6H PRN PRN Reason: PAIN Last Admin: 10/13/18 16:57 Dose: 325 mg Ascorbic Acid (Vitamin C -) 1,000 mg PO DAILY [facility] Atorvastatin Calcium (Lipitor -) 40 mg PO HS [facility] Last Admin: 10/13/18 21:53 Dose: 40 mg Non-Formulary Medication (Sectral) 1 tab PO BID [facility] Potassium Chloride (K-Dur -) 10 meq PO DAILY [facility] Tamsulosin HCl (Flomax -) 0.4 mg PO 0830 [facility] - Objective Vital Signs: Vital Signs Temperature 97.8 F 10/13/18 22:00 Pulse Rate 65 10/13/18 22:00 Respiratory Rate 18 10/13/18 22:00 Blood Pressure 127/61 10/13/18 22:00 O2 Sat by Pulse Oximetry (%) 98 10/13/18 21:00 Constitutional: Yes: Anxious, Mild Distress Eyes: Yes: Conjunctiva Clear, EOM Intact HENT: Yes: Atraumatic, Normocephalic Neck: Yes: Supple, Trachea Midline Cardiovascular: Yes: Regular Rate and Rhythm. No: Bradycardia, Tachycardia Respiratory: Yes: Regular, CTA Bilaterally Gastrointestinal: Yes: Soft, Abdomen, Obese. No: Splenomegaly, Tenderness ...Rectal Exam: Yes: Deferred Genitourinary: No: Anuria, Bladder Distention Breast(s): Yes: WNL Musculoskeletal: Yes: Back Pain Extremities: Yes: WNL Edema: Yes Edema: LLE: Trace, RLE: Trace Peripheral Pulses WNL: No Integumentary: Yes: WNL Neurological: Yes: Alert, Oriented, Unsteady Gait ...Motor Strength: WNL Psychiatric: Yes: WNL Labs: CBC, BMP 10/14/18 05:45 Problem List - Problems (1) Fall in elderly patient Assessment/Plan: Probably multifactorial, Medications, deconditioning, LE neuropathy, radiculopathy etc Code(s): R29.6 - REPEATED FALLS (2) Hyponatremia Assessment/Plan: Improving Probably dilutional and Use of ARB/HCT Continue avoiding meds causing hyponatremia Code(s): E87.1 - HYPO-OSMOLALITY AND HYPONATREMIA (3) Disc degeneration, lumbar Assessment/Plan: Tylenol controlls well pain Code(s): M51.36 - OTHER INTERVERTEBRAL DISC DEGENERATION, LUMBAR REGION (4) Constipation by delayed colonic transit Assessment/Plan: Mag citrate , Dulcolax PO Code(s): K59.01 - SLOW TRANSIT CONSTIPATION (5) Hypokalemia Assessment/Plan: Replete K Follow k Code(s): E87.6 - HYPOKALEMIA (6) Gait disorder Assessment/Plan: PT for ambulation Code(s): R26.9 - UNSPECIFIED ABNORMALITIES OF GAIT AND MOBILITY
[2018-10-14] MEDS ORDERED: MAGNESIUM CITRATE 300 ML BOTTLE PO ONE (08:00)
[2018-10-14] MEDS ORDERED: SODIUM PHOSPHATE/NA BIPHOS 133 ML ENEMA PR ONE (08:01)
[2018-10-14] MEDS ORDERED: BISACODYL 5 MG TABLET.DR (FP) PO ONE (08:01)
[2018-10-14] MEDS: TAMSULOSIN HCL 0.4 MG CAP PO SCH (08:21)
[2018-10-14 09:54] LABS: BASO % 0.7 % (0-2.0); EOS % 1.4 % (0-4.5); HEMATOCRIT 38.1 % (35.4-49); HEMOGLOBIN 13.8 GM/dL (11.7-16.9); LYMPH % 18.1 % (8-40); MCH 33.2 pg (25.7-33.7); MCHC 36.1 g/dl (32.0-35.9); MEAN PLT VOLUME 8.8 fl (7.5-11.1); MONO % 14.7 % (3.8-10.2); NEUT % 65.1 % (42.8-82.8); PLATELET COUNT 144 K/MM3 (134-434); RBC 4.15 M/mm3 (4.00-5.60); RDW 12.8 % (11.9-15.9); WHITE BLOOD COUNT 5.3 K/mm3 (4.0-10.0)
[2018-10-14] MEDS: POTASSIUM CHLORIDE TABS 10 MEQ TABLET.ER (FP) PO SCH (11:23)
[2018-10-14] MEDS: ASCORBIC ACID 500 MG TABLET (FP) PO SCH (11:23)
--- NOTE | 2018-10-14 11:45 | CONSULT ---
Consult - text type - Consultation Consultation Note: Renal Consult for Hyponatremia This is an 83 year old Gentleman with hx of HTN, HLD, Prostate Ca, diverticulosis, PVD who presented with complaints of weakness and found to have hyponatremia with Na of 117. Pt was seen by our service on prior admission for hyponatremia as well during which time his HCTZ was discontinued. I talked with his pharmacy and they reported that he is still on Diovan/HCTZ and it was last filled in July. Pt also reports that he drinks about 1 gallon of water daily. Denies any N/V/D. He was also on lasix at home. No Fever, chills, CP, SOB , VERMA or confusion now. PMhx: as above Allergies: NKDA Family hx: NC Social Hx: no T/A/D ROS: as per HPI, all other pertinent ros negative Home Medications Medication Instructions Recorded Ascorbate Calcium [Vitamin C] 1,000 mg PO DAILY 11/17/15 Aspirin Coated [Ecotrin -] 325 mg PO DAILY 11/17/15 Atorvastatin Ca [Lipitor] 40 mg PO HS 11/17/15 Furosemide [Lasix -] 20 mg PO Q48H 11/17/15 Garlic 1,000 mg PO DAILY 11/17/15 Milk Thistle 500 mg PO BID 11/17/15 Saw [place] 320 mg PO DAILY 11/17/15 Vitamin B Complex 1 each PO DAILY 11/17/15 Vitamin E 400 unit PO DAILY 11/17/15 Multivit-Min/FA/Lycopen/Lutein 1 each PO DAILY 03/03/16 [Centrum Silver Tablet] Coenzyme [id number] E [Co 1 each PO DAILY 07/23/17 Q-10 with l-Carnitine Sftgl] Potassium Chloride [Klor-Con 10] 10 meq PO DAILY 07/23/17 Sectral 1 tab PO BID 07/23/17 Tamsulosin HCl [Flomax] 0.4 mg PO DAILY 07/23/17 [place]-3S/Dha/Epa/Fish Oil [Fish 1 each PO DAILY 01/28/18 Oil 1,200 mg Softgel] Sodium Chloride Tablet - 1 gm PO BID #14 tablet 01/29/18 Valsartan [Diovan] 160 mg PO DAILY #30 tablet 01/29/18 traMADol HCL [Ultram -] 50 mg PO Q6H PRN #12 tablet MDD 4 02/25/18 tabs Ibuprofen [Motrin -] 600 mg PO QID PRN #28 tablet 08/07/18 Meds from [facility] pharmacy KCl 10meq Meloxicam 7.5mg Lasix 20mg Aceputolol atorvastatin 40mg Diovan/HCTZ 160/12.5mg Flomax Vital Signs Temperature 97.7 F 10/14/18 08:29 Pulse Rate 64 10/14/18 08:29 Respiratory Rate 18 10/14/18 08:29 Blood Pressure 171/75 H 10/14/18 08:29 O2 Sat by Pulse Oximetry (%) 98 10/13/18 21:00 Intake & Output 10/11/18 10/12/18 10/13/18 10/14/18 23:59 23:59 23:59 23:59 Intake Total 1500 100 Output Total 1200 700 Balance 300 -600 Weight 89.086 kg NAD awake and alert neck supple, no JVD RRR, No M/R CTA, no rales or wheeze soft NT/ND no LE edema no focal neurologic defects CBC, BMP 10/14/18 05:45 10/14/18 05:45 Current Medications Acetaminophen (Tylenol -) 325 mg PO Q6H PRN PRN Reason: PAIN Last Admin: 10/13/18 16:57 Dose: 325 mg Ascorbic Acid (Vitamin C -) 1,000 mg PO DAILY [facility] Last Admin: 10/14/18 11:23 Dose: 1,000 mg Atorvastatin Calcium (Lipitor -) 40 mg PO HS [facility] Last Admin: 10/13/18 21:53 Dose: 40 mg Non-Formulary Medication (Sectral) 1 tab PO BID [facility] Potassium Chloride (K-Dur -) 10 meq PO DAILY [facility] Last Admin: 10/14/18 11:23 Dose: 10 meq Tamsulosin HCl (Flomax -) 0.4 mg PO 0830 [facility] Last Admin: 10/14/18 08:21 Dose: 0.4 mg 83 year old Gentleman with hx of HTN, HLD, Prostate Ca, diverticulosis, PVD who presented with complaints of weakness and found to have hyponatremia with Na of 117. 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
[2018-10-14] MEDS: ATORVASTATIN CA 40 MG TABLET (FP) PO SCH (21:27)
[2018-10-14] MEDS: ACETAMINOPHEN 325 MG TABLET (FP) PO PRN (21:54)
[2018-10-15 08:53] LABS: BASO % 0.7 % (0-2.0); HEMATOCRIT 37.1 % (35.4-49); HEMOGLOBIN 13.5 GM/dL (11.7-16.9); LYMPH % 18.9 % (8-40); MCH 33.4 pg (25.7-33.7); MCHC 36.4 g/dl (32.0-35.9); MEAN CELL VOLUME 91.7 fl (80-96); MEAN PLT VOLUME 8.9 fl (7.5-11.1); MONO % 15.2 % (3.8-10.2); NEUT % 63.2 % (42.8-82.8); PLATELET COUNT 144 K/MM3 (134-434); RBC 4.04 M/mm3 (4.00-5.60); RDW 12.6 % (11.9-15.9); WHITE BLOOD COUNT 4.3 K/mm3 (4.0-10.0)
[2018-10-15] MEDS: POTASSIUM CHLORIDE TABS 10 MEQ TABLET.ER (FP) PO SCH (09:25)
[2018-10-15] MEDS: TAMSULOSIN HCL 0.4 MG CAP PO SCH (09:25)
[2018-10-15] MEDS: ASCORBIC ACID 500 MG TABLET (FP) PO SCH (09:25)
[2018-10-15 09:27] LABS: ALBUMIN 3.1 g/dl (3.4-5.0); ALK PHOS 55 U/L (45-117); ANION GAP 9 MMOL/L (8-16); BILIRUBIN,TOTAL 1.1 mg/dL (0.2-1); BLOOD UREA NITROGEN 10 mg/dL (7-18); CALCIUM 7.6 mg/dL (8.5-10.1); CHLORIDE 92 mmol/L (98-107); CO2 26 mmol/L (21-32); CREATININE 0.6 mg/dL (0.55-1.3); GLUCOSE,RANDOM 94 mg/dL (74-106); MAGNESIUM 2.1 mg/dL (1.8-2.4); POTASSIUM 3.6 mmol/L (3.5-5.1); SGOT/AST 14 U/L (15-37); SGPT/ALT 18 U/L (13-61); SODIUM 127 mmol/L (136-145); TOT PROT 5.3 g/dl (6.4-8.2)
--- NOTE | 2018-10-15 10:05 | PN ---
Progress Note (short form) - Note Progress Note: Renal follow up for Hyponatremia Pt seen and examined at the bedside no acute complaints no sob, cp, abd pain Vital Signs Temperature 97.7 F 10/15/18 07:03 Pulse Rate 64 10/15/18 07:03 Respiratory Rate 20 10/15/18 07:03 Blood Pressure 144/62 10/15/18 07:03 O2 Sat by Pulse Oximetry (%) 98 10/13/18 21:00 Intake & Output 10/12/18 10/13/18 10/14/18 10/15/18 23:59 23:59 23:59 23:59 Intake Total 1500 1100 0 Output Total 1200 1350 Balance 300 -250 0 Weight 89.086 kg 90.804 kg NAD RRR, No M/R CTA, no rales or wheeze soft NT/ND no LE edema no focal neurologic defects CBC, BMP 10/15/18 06:00 10/15/18 06:00 Current Medications Acetaminophen (Tylenol -) 325 mg PO Q6H PRN PRN Reason: PAIN Last Admin: 10/14/18 21:54 Dose: 325 mg Ascorbic Acid (Vitamin C -) 1,000 mg PO DAILY [facility] Last Admin: 10/15/18 09:25 Dose: 1,000 mg Atorvastatin Calcium (Lipitor -) 40 mg PO HS [facility] Last Admin: 10/14/18 21:27 Dose: 40 mg Non-Formulary Medication (Sectral) 1 tab PO BID [facility] Potassium Chloride (K-Dur -) 10 meq PO DAILY [facility] Last Admin: 10/15/18 09:25 Dose: 10 meq Tamsulosin HCl (Flomax -) 0.4 mg PO 0830 [facility] Last Admin: 10/15/18 09:25 Dose: 0.4 mg 83 year old Gentleman with hx of HTN, HLD, Prostate Ca, diverticulosis, PVD who presented with complaints of weakness and found to have hyponatremia with Na of 117. 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
--- NOTE | 2018-10-15 11:46 | PN ---
Progress Note (short form) - Note Progress Note: Progress Note (SOAP) 2 Progress Note, Physician Chief Complaint: Sodium improved 123 K repleted Pt still week and unsteady No BM x5 days History of Present Illness: HTN previously on Diovan HCT 160/12.5 whic was changed to Diovan 160. Unclear what meds t5hew patient was taking, SVT's - AVN re-entrant tachycardia.on Acetobutolol, RBBB. 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 Mild DM 2 Osteoporosis HLD BPH, S/P TURP LE varicose veins PAD LE. B/l SFA obstructive atherosclerotic plaques. Stent left femoral artery. Gastrectomy for perforated ulcer. Thrombocytopenia Hyponatremia with Na 128 - Current Medication List Current Medications Generic Name Dose Route Start Last Admin Trade Name Freq PRN Reason Stop Dose Admin Acetaminophen 325 mg 10/13/18 15:46 10/14/18 21:54 Tylenol - PO 325 mg Q6H PRN Administration PAIN Ascorbic Acid 1,000 mg 10/14/18 10:00 10/15/18 09:25 Vitamin C - PO 1,000 mg DAILY [facility] Administration Atorvastatin Calcium 40 mg 10/13/18 22:00 10/14/18 21:27 Lipitor - PO 40 mg HS [facility] Administration Non-Formulary Medication 1 tab 10/13/18 22:00 Sectral PO BID [facility] Potassium Chloride 10 meq 10/14/18 10:00 10/15/18 09:25 K-Dur - PO 10 meq DAILY [facility] Administration Tamsulosin HCl 0.4 mg 10/14/18 08:30 10/15/18 09:25 Flomax - PO 0.4 mg 0830 [facility] Administration - Objective Vital Signs: Vital Signs Period Temp Pulse Resp BP Sys/Jean-Baptiste Pulse Ox Last 24 Hr 97.7 F-98.5 F 62-84 17-20 127-144/55-70 98 Constitutional: Yes: Anxious, Mild Distress Eyes: Yes: Conjunctiva Clear, EOM Intact HENT: Yes: Atraumatic, Normocephalic Neck: Yes: Supple, Trachea Midline Cardiovascular: Yes: Regular Rate and Rhythm. No: Bradycardia, Tachycardia Respiratory: Yes: Regular, CTA Bilaterally Gastrointestinal: Yes: Soft, Abdomen, Obese. No: Splenomegaly, Tenderness ...Rectal Exam: Yes: Deferred Genitourinary: No: Anuria, Bladder Distention Breast(s): Yes: WNL Musculoskeletal: Yes: Back Pain Extremities: Yes: WNL Edema: Yes Edema: LLE: Trace, RLE: Trace Peripheral Pulses WNL: No Integumentary: Yes: WNL Neurological: Yes: Alert, Oriented, Unsteady Gait ...Motor Strength: WNL Psychiatric: Yes: WNL Labs: CBC, BMP 10/15/18 06:00 10/15/18 06:00 Problem List - Problems (1) Fall in elderly patient Assessment/Plan: Probably multifactorial, Medications, deconditioning, LE neuropathy, radiculopathy etc Code(s): R29.6 - REPEATED FALLS (2) Hyponatremia Assessment/Plan: Improving Probably dilutional and Use of ARB/HCT Continue avoiding meds causing hyponatremia seen by nephro fluid restriction one lit a day Code(s): E87.1 - HYPO-OSMOLALITY AND HYPONATREMIA (3) Disc degeneration, lumbar Assessment/Plan: Tylenol controlls well pain Code(s): M51.36 - OTHER INTERVERTEBRAL DISC DEGENERATION, LUMBAR REGION (4) Constipation by delayed colonic transit Assessment/Plan: Mag citrate , Dulcolax PO Code(s): K59.01 - SLOW TRANSIT CONSTIPATION (5) Hypokalemia Assessment/Plan: Replete K Follow k Code(s): E87.6 - HYPOKALEMIA (6) Gait disorder Assessment/Plan: PT for ambulation Code(s): R26.9 - UNSPECIFIED ABNORMALITIES OF GAIT AND MOBILITY Visit type - Emergency Visit Emergency Visit: Yes ED Registration Date: 10/13/18 Care time: The patient presented to the Emergency Department on the above date and was hospitalized for further evaluation of their emergent condition. - New Patient This patient is new to me today: Yes Date on this admission: 10/15/18 - Critical Care Critical Care patient: No - Discharge Referral Referred to [facility] Med P.C.: No
[2018-10-15] MEDS: ATORVASTATIN CA 40 MG TABLET (FP) PO SCH (21:16)
--- NOTE | 2018-10-16 09:25 | PN ---
Progress Note (short form) - Note Progress Note: Renal follow up for Hyponatremia Pt seen and examined at the bedside complains of pain in both calves, chronic pain no sob, cp, abd pain, N/V/D making urine no confusion or lethargy Vital Signs Temperature 98.6 F 10/16/18 06:46 Pulse Rate 69 10/16/18 06:46 Respiratory Rate 20 10/16/18 06:46 Blood Pressure 154/68 10/16/18 06:46 O2 Sat by Pulse Oximetry (%) 98 10/15/18 09:00 Intake & Output 10/13/18 10/14/18 10/15/18 10/16/18 23:59 23:59 23:59 23:59 Intake Total 1500 1100 800 100 Output Total 1200 1350 1750 Balance 300 -250 -950 100 Weight 89.086 kg 90.804 kg 90.038 kg NAD RRR, No M/R CTA, no rales or wheeze soft NT/ND no LE edema no focal neurologic defects CBC, BMP 10/15/18 06:00 10/15/18 06:00 Current Medications Acetaminophen (Tylenol -) 325 mg PO Q6H PRN PRN Reason: PAIN Last Admin: 10/14/18 21:54 Dose: 325 mg Ascorbic Acid (Vitamin C -) 1,000 mg PO DAILY [facility] Last Admin: 10/15/18 09:25 Dose: 1,000 mg Atorvastatin Calcium (Lipitor -) 40 mg PO HS [facility] Last Admin: 10/15/18 21:16 Dose: 40 mg Non-Formulary Medication (Sectral) 1 tab PO BID [facility] Potassium Chloride (K-Dur -) 10 meq PO DAILY [facility] Last Admin: 10/15/18 09:25 Dose: 10 meq Tamsulosin HCl (Flomax -) 0.4 mg PO 0830 [facility] Last Admin: 10/15/18 09:25 Dose: 0.4 mg 83 year old Gentleman with hx of HTN, HLD, Prostate Ca, diverticulosis, PVD who presented with complaints of weakness and found to have hyponatremia with Na of 117. 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
[2018-10-16 10:14] LABS: ANION GAP 8 MMOL/L (8-16); BLOOD UREA NITROGEN 14 mg/dL (7-18); CALCIUM 8.4 mg/dL (8.5-10.1); CHLORIDE 96 mmol/L (98-107); CO2 25 mmol/L (21-32); CREATININE 0.7 mg/dL (0.55-1.3); GLUCOSE,RANDOM 154 mg/dL (74-106); POTASSIUM 4.1 mmol/L (3.5-5.1); SODIUM 130 mmol/L (136-145)
[2018-10-16] MEDS: ASCORBIC ACID 500 MG TABLET (FP) PO SCH (10:46)
[2018-10-16] MEDS: POTASSIUM CHLORIDE TABS 10 MEQ TABLET.ER (FP) PO SCH (10:46)
[2018-10-16] MEDS: GABAPENTIN 100 MG CAPSULE (FP) PO SCH (10:46)
[2018-10-16] MEDS: TAMSULOSIN HCL 0.4 MG CAP PO SCH (10:46)
--- NOTE | 2018-10-16 11:11 | PN ---
Progress Note (short form) - Note Progress Note: Progress Note (SOAP) 2 Progress Note, Physician Chief Complaint: Sodium improved 130 better today History of Present Illness: HTN previously on Diovan HCT 160/12.5 whic was changed to Diovan 160. Unclear what meds t5hew patient was taking, SVT's - AVN re-entrant tachycardia.on Acetobutolol, RBBB. 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 Mild DM 2 Osteoporosis HLD BPH, S/P TURP LE varicose veins PAD LE. B/l SFA obstructive atherosclerotic plaques. Stent left femoral artery. Gastrectomy for perforated ulcer. Thrombocytopenia Hyponatremia with Na 128 - Current Medication List Current Medications Generic Name Dose Route Start Last Admin Trade Name Freq PRN Reason Stop Dose Admin Acetaminophen 325 mg 10/13/18 15:46 10/14/18 21:54 Tylenol - PO 325 mg Q6H PRN Administration PAIN Ascorbic Acid 1,000 mg 10/14/18 10:00 10/15/18 09:25 Vitamin C - PO 1,000 mg DAILY [facility] Administration Atorvastatin Calcium 40 mg 10/13/18 22:00 10/14/18 21:27 Lipitor - PO 40 mg HS [facility] Administration Non-Formulary Medication 1 tab 10/13/18 22:00 Sectral PO BID [facility] Potassium Chloride 10 meq 10/14/18 10:00 10/15/18 09:25 K-Dur - PO 10 meq DAILY [facility] Administration Tamsulosin HCl 0.4 mg 10/14/18 08:30 10/15/18 09:25 Flomax - PO 0.4 mg 0830 [facility] Administration - Objective Vital Signs: Vital Signs Period Temp Pulse Resp BP Sys/Jean-Baptiste Pulse Ox Last 24 Hr 97.7 F-98.5 F 62-84 17-20 127-144/55-70 98 Constitutional: Yes: Anxious, Mild Distress Eyes: Yes: Conjunctiva Clear, EOM Intact HENT: Yes: Atraumatic, Normocephalic Neck: Yes: Supple, Trachea Midline Cardiovascular: Yes: Regular Rate and Rhythm. No: Bradycardia, Tachycardia Respiratory: Yes: Regular, CTA Bilaterally Gastrointestinal: Yes: Soft, Abdomen, Obese. No: Splenomegaly, Tenderness ...Rectal Exam: Yes: Deferred Genitourinary: No: Anuria, Bladder Distention Breast(s): Yes: WNL Musculoskeletal: Yes: Back Pain Extremities: Yes: WNL Edema: Yes Edema: LLE: Trace, RLE: Trace Peripheral Pulses WNL: No Integumentary: Yes: WNL Neurological: Yes: Alert, Oriented, Unsteady Gait ...Motor Strength: WNL Psychiatric: Yes: WNL Labs: CBC, BMP 10/15/18 06:00 10/16/18 09:20 Problem List - Problems (1) Fall in elderly patient Assessment/Plan: Probably multifactorial, Medications, deconditioning, LE neuropathy, radiculopathy etc Code(s): R29.6 - REPEATED FALLS (2) Hyponatremia Assessment/Plan: Improving Probably dilutional and Use of ARB/HCT Continue avoiding meds causing hyponatremia seen by nephro fluid restriction one lit a day Code(s): E87.1 - HYPO-OSMOLALITY AND HYPONATREMIA (3) Disc degeneration, lumbar Assessment/Plan: Tylenol controlls well pain Code(s): M51.36 - OTHER INTERVERTEBRAL DISC DEGENERATION, LUMBAR REGION (4) Constipation by delayed colonic transit Assessment/Plan: Mag citrate , Dulcolax PO Code(s): K59.01 - SLOW TRANSIT CONSTIPATION (5) Hypokalemia Assessment/Plan: Replete K Follow k Code(s): E87.6 - HYPOKALEMIA (6) Gait disorder Assessment/Plan: PT for ambulation Code(s): R26.9 - UNSPECIFIED ABNORMALITIES OF GAIT AND MOBILITY Visit type - Emergency Visit Emergency Visit: Yes ED Registration Date: 10/13/18 Care time: The patient presented to the Emergency Department on the above date and was hospitalized for further evaluation of their emergent condition. - New Patient This patient is new to me today: No - Critical Care Critical Care patient: No - Discharge Referral Referred to [facility] Med P.C.: No
[2018-10-16] MEDS: ACETAMINOPHEN 325 MG TABLET (FP) PO PRN ×2 (17:39→23:21)
[2018-10-16] MEDS: ATORVASTATIN CA 40 MG TABLET (FP) PO SCH (21:57)
[2018-10-17] MEDS: ACETAMINOPHEN 325 MG TABLET (FP) PO PRN ×2 (06:20→22:06)
[2018-10-17 07:51] LABS: ANION GAP 6 MMOL/L (8-16); BLOOD UREA NITROGEN 14 mg/dL (7-18); CHLORIDE 94 mmol/L (98-107); CO2 28 mmol/L (21-32); CREATININE 0.6 mg/dL (0.55-1.3); GLUCOSE,RANDOM 100 mg/dL (74-106); POTASSIUM 3.9 mmol/L (3.5-5.1); SODIUM 129 mmol/L (136-145)
--- NOTE | 2018-10-17 08:47 | PN ---
Progress Note, Physician Chief Complaint: Still very unstable while attempts to walk, sodium improving History of Present Illness: HTN previously on Diovan HCT 160/12.5 whic was changed to Diovan 160. Unclear what meds t5hew patient was taking, SVT's - AVN re-entrant tachycardia.on Acetobutolol, RBBB. 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 Mild DM 2 Osteoporosis HLD BPH, S/P TURP LE varicose veins PAD LE. B/l SFA obstructive atherosclerotic plaques. Stent left femoral artery. Gastrectomy for perforated ulcer. Thrombocytopenia Hyponatremia with Na 128 - Current Medication List Current Medications: Active Medications Acetaminophen (Tylenol -) 325 mg PO Q6H PRN PRN Reason: PAIN Last Admin: 10/17/18 06:20 Dose: 325 mg Amlodipine Besylate (Norvasc -) 10 mg PO DAILY [facility] Ascorbic Acid (Vitamin C -) 1,000 mg PO DAILY [facility] Last Admin: 10/16/18 10:46 Dose: 1,000 mg Atorvastatin Calcium (Lipitor -) 40 mg PO HS [facility] Last Admin: 10/16/18 21:57 Dose: 40 mg Gabapentin (Neurontin -) 100 mg PO DAILY [facility] Last Admin: 10/16/18 10:46 Dose: 100 mg Non-Formulary Medication (Sectral) 1 tab PO BID [facility] Potassium Chloride (K-Dur -) 10 meq PO DAILY [facility] Last Admin: 10/16/18 10:46 Dose: 10 meq Tamsulosin HCl (Flomax -) 0.4 mg PO 0830 [facility] Last Admin: 10/16/18 10:46 Dose: 0.4 mg - Objective Vital Signs: Vital Signs Temperature 98.1 F 10/17/18 06:00 Pulse Rate 70 10/17/18 06:00 Respiratory Rate 20 10/17/18 06:00 Blood Pressure 151/53 L 10/17/18 06:00 O2 Sat by Pulse Oximetry (%) 97 10/16/18 22:11 Constitutional: Yes: Anxious, Mild Distress Eyes: Yes: Conjunctiva Clear, EOM Intact HENT: Yes: Atraumatic, Normocephalic Neck: Yes: Supple, Trachea Midline Cardiovascular: Yes: Regular Rate and Rhythm. No: Bradycardia, Tachycardia Respiratory: Yes: Regular, CTA Bilaterally Gastrointestinal: Yes: Normal Bowel Sounds, Soft, Abdomen, Obese. No: Ascites, Tenderness, Tenderness, Rebound, Vomiting ...Rectal Exam: Yes: Deferred Breast(s): Yes: WNL Musculoskeletal: Yes: Back Pain. No: Joint Stiffness Edema: No Peripheral Pulses WNL: Yes Integumentary: Yes: WNL Neurological: Yes: Alert, Oriented. No: Aphasia ...Motor Strength: WNL Psychiatric: Yes: WNL Labs: CBC, BMP 10/15/18 06:00 10/17/18 06:20 Laboratory Results - last 24 hr 10/16/18 10/16/18 10/17/18 09:20 21:55 06:16 Sodium 130 L Potassium 4.1 Chloride 96 L Carbon Dioxide 25 Anion Gap 8 BUN 14 Creatinine 0.7 Creat Clearance w eGFR > 60 POC Glucometer 135 104 Random Glucose 154 H Calcium 8.4 L 10/17/18 06:20 Sodium 129 L Potassium 3.9 Chloride 94 L Carbon Dioxide 28 Anion Gap 6 L BUN 14 Creatinine 0.6 Creat Clearance w eGFR > 60 POC Glucometer Random Glucose 100 Calcium 8.0 L Problem List - Problems (1) Fall in elderly patient Assessment/Plan: Probably multifactorial, Medications, deconditioning, LE neuropathy, radiculopathy etc Code(s): R29.6 - REPEATED FALLS (2) Hyponatremia Assessment/Plan: Improving Probably dilutional and Use of ARB/HCT Continue avoiding meds causing hyponatremia Code(s): E87.1 - HYPO-OSMOLALITY AND HYPONATREMIA (3) Disc degeneration, lumbar Assessment/Plan: Tylenol controlls well pain Code(s): M51.36 - OTHER INTERVERTEBRAL DISC DEGENERATION, LUMBAR REGION (4) Constipation by delayed colonic transit Assessment/Plan: Mag citrate , Dulcolax PO Code(s): K59.01 - SLOW TRANSIT CONSTIPATION (5) Hypokalemia Assessment/Plan: Replete K Follow k Code(s): E87.6 - HYPOKALEMIA (6) Gait disorder Assessment/Plan: PT for ambulation Code(s): R26.9 - UNSPECIFIED ABNORMALITIES OF GAIT AND MOBILITY (7) Hypertension Assessment/Plan: Amlodipine 10 mg QD Code(s): I10 - ESSENTIAL (PRIMARY) HYPERTENSION Qualifiers: Hypertension type: essential hypertension Qualified Code(s): I10 - Essential (primary) hypertension
[2018-10-17] MEDS ORDERED: MAGNESIUM HYDROX 2400MG/30ML ORAL SUSPENSION 30 ML CUP PO PRN (08:48)
[2018-10-17] MEDS ORDERED: GLYCERIN 1 RECTAL SUPPOSITORY, ADULT RC PRN (09:10)
[2018-10-17] MEDS: GABAPENTIN 100 MG CAPSULE (FP) PO SCH (09:50)
[2018-10-17] MEDS: TAMSULOSIN HCL 0.4 MG CAP PO SCH (09:50)
[2018-10-17] MEDS: ASCORBIC ACID 500 MG TABLET (FP) PO SCH (09:50)
[2018-10-17] MEDS: amLODIPine BESYLATE 10 MG TABLET (FP) PO SCH (09:50)
[2018-10-17] MEDS: POTASSIUM CHLORIDE TABS 10 MEQ TABLET.ER (FP) PO SCH (09:52)
[2018-10-17] MEDS ORDERED: PT OWN MED DRAWER 7, Y5N ONE (10:58)
--- NOTE | 2018-10-17 13:51 | PN ---
Progress Note, Physician Chief Complaint: The patient seen and examined in his bed. Still c/o LE pains. Says that he is practically bed ridden and needs to be sent to a SNF when discharged. Maintains good urine output. History of Present Illness: 83 year old Gentleman with hx of HTN, HLD, Prostate Ca, diverticulosis, PVD who presented with complaints of weakness and found to have hyponatremia with Na of 117. The Serum Na has improved to 129. - Current Medication List Current Medications: Active Medications Acetaminophen (Tylenol -) 325 mg PO Q6H PRN PRN Reason: PAIN Last Admin: 10/17/18 06:20 Dose: 325 mg Amlodipine Besylate (Norvasc -) 10 mg PO DAILY [facility] Last Admin: 10/17/18 09:50 Dose: 10 mg Ascorbic Acid (Vitamin C -) 1,000 mg PO DAILY [facility] Last Admin: 10/17/18 09:50 Dose: 1,000 mg Atorvastatin Calcium (Lipitor -) 40 mg PO HS [facility] Last Admin: 10/16/18 21:57 Dose: 40 mg Gabapentin (Neurontin -) 100 mg PO DAILY [facility] Last Admin: 10/17/18 09:50 Dose: 100 mg Glycerin (Glycerin Suppository Adult -) 1 each RC DAILY PRN PRN Reason: CONSTIPATION Last Admin: 10/17/18 11:00 Dose: 1 each Magnesium Hydroxide (Milk Of Magnesia -) 30 ml PO DAILY PRN PRN Reason: CONSTIPATION Non-Formulary Medication (Sectral) 1 tab PO BID [facility] Potassium Chloride (K-Dur -) 10 meq PO DAILY [facility] Last Admin: 10/17/18 09:52 Dose: 10 meq Tamsulosin HCl (Flomax -) 0.4 mg PO 0830 [facility] Last Admin: 10/17/18 09:50 Dose: 0.4 mg - Objective Vital Signs: Vital Signs Temperature 98.2 F 10/17/18 10:00 Pulse Rate 71 10/17/18 10:00 Respiratory Rate 18 10/17/18 10:00 Blood Pressure 150/70 10/17/18 10:00 O2 Sat by Pulse Oximetry (%) 97 10/16/18 22:11 Constitutional: Yes: Mild Distress Cardiovascular: Yes: Tachycardia, Pulse Irregular, S1, S2 Respiratory: Yes: CTA Bilaterally, Diminished Gastrointestinal: Yes: Normal Bowel Sounds, Soft Musculoskeletal: Yes: Joint Stiffness, Muscle Pain Extremities: Yes: Other Edema: No Neurological: Yes: Alert, Oriented Psychiatric: Yes: Alert Labs: CBC, BMP 10/15/18 06:00 10/17/18 06:20 Problem List - Problems (1) Hypertension Code(s): I10 - ESSENTIAL (PRIMARY) HYPERTENSION Qualifiers: Hypertension type: essential hypertension Qualified Code(s): I10 - Essential (primary) hypertension (2) Peripheral vascular disease Code(s): I73.9 - PERIPHERAL VASCULAR DISEASE, UNSPECIFIED (3) Hyponatremia Code(s): E87.1 - HYPO-OSMOLALITY AND HYPONATREMIA (4) Lower back pain Code(s): M54.5 - LOW BACK PAIN Qualifiers: Chronicity: unspecified Back pain laterality: right Sciatica presence: with sciatica Sciatica laterality: sciatica of right side Qualified Code(s) : M54.41 - Lumbago with sciatica, right side Assessment/Plan 83 year old Gentleman with hx of HTN, HLD, Prostate Ca, diverticulosis, PVD who presented with complaints of weakness and found to have hyponatremia with Na of 117. 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 #HTN #BPH/hx of prostate cancer #Hyperlipidemia Today's Serum Na 129. Will avois Thiazides. Trend Na daily Has LE pain. ? vascular ischemia. Can consider gabapentin for symptom control if there is a component of Neuropathy. Thank you. Lorraine Samuel MD
[2018-10-17] MEDS: ATORVASTATIN CA 40 MG TABLET (FP) PO SCH (22:06)
[2018-10-18 07:34] LABS: BASO % 0.7 % (0-2.0); HEMATOCRIT 39.1 % (35.4-49); HEMOGLOBIN 14.2 GM/dL (11.7-16.9); LYMPH % 22.7 % (8-40); MCH 33.4 pg (25.7-33.7); MCHC 36.2 g/dl (32.0-35.9); MEAN CELL VOLUME 92.3 fl (80-96); MONO % 10.8 % (3.8-10.2); NEUT % 63.8 % (42.8-82.8); PLATELET COUNT 143 K/MM3 (134-434); RBC 4.24 M/mm3 (4.00-5.60); RDW 13.1 % (11.9-15.9); WHITE BLOOD COUNT 5.4 K/mm3 (4.0-10.0)
[2018-10-18 08:06] LABS: ALK PHOS 60 U/L (45-117); ANION GAP 5 MMOL/L (8-16); BILIRUBIN,TOTAL 0.9 mg/dL (0.2-1); BLOOD UREA NITROGEN 15 mg/dL (7-18); CALCIUM 7.9 mg/dL (8.5-10.1); CHLORIDE 96 mmol/L (98-107); CO2 30 mmol/L (21-32); CREATININE 0.6 mg/dL (0.55-1.3); GLUCOSE,RANDOM 99 mg/dL (74-106); POTASSIUM 3.7 mmol/L (3.5-5.1); SGOT/AST 16 U/L (15-37); SGPT/ALT 20 U/L (13-61); SODIUM 131 mmol/L (136-145); TOT PROT 5.7 g/dl (6.4-8.2)
[2018-10-18] MEDS: POTASSIUM CHLORIDE TABS 10 MEQ TABLET.ER (FP) PO SCH (10:16)
[2018-10-18] MEDS: GABAPENTIN 100 MG CAPSULE (FP) PO SCH (10:16)
[2018-10-18] MEDS: ASCORBIC ACID 500 MG TABLET (FP) PO SCH (10:16)
[2018-10-18] MEDS: amLODIPine BESYLATE 10 MG TABLET (FP) PO SCH (10:16)
[2018-10-18] MEDS: TAMSULOSIN HCL 0.4 MG CAP PO SCH (10:17)
--- NOTE | 2018-10-18 10:23 | PN ---
Progress Note, Physician Chief Complaint: The patient seen and examined in his bed. Still c/o LE pains. Says that he is practically bed ridden and needs to be sent to a SNF when discharged. Complaining about everything and everybody. Maintains good urine output. History of Present Illness: 83 year old Gentleman with hx of HTN, HLD, Prostate Ca, diverticulosis, PVD who presented with complaints of weakness and found to have hyponatremia with Na of 117. The Serum Na has improved since. - Current Medication List Current Medications: Active Medications Acetaminophen (Tylenol -) 325 mg PO Q6H PRN PRN Reason: PAIN Last Admin: 10/17/18 22:06 Dose: 325 mg Amlodipine Besylate (Norvasc -) 10 mg PO DAILY [facility] Last Admin: 10/18/18 10:16 Dose: 10 mg Ascorbic Acid (Vitamin C -) 1,000 mg PO DAILY [facility] Last Admin: 10/18/18 10:16 Dose: 1,000 mg Atorvastatin Calcium (Lipitor -) 40 mg PO HS [facility] Last Admin: 10/17/18 22:06 Dose: 40 mg Gabapentin (Neurontin -) 100 mg PO DAILY [facility] Last Admin: 10/18/18 10:16 Dose: 100 mg Glycerin (Glycerin Suppository Adult -) 1 each RC DAILY PRN PRN Reason: CONSTIPATION Last Admin: 10/17/18 11:00 Dose: 1 each Magnesium Hydroxide (Milk Of Magnesia -) 30 ml PO DAILY PRN PRN Reason: CONSTIPATION Non-Formulary Medication (Sectral) 1 tab PO BID [facility] Potassium Chloride (K-Dur -) 10 meq PO DAILY [facility] Last Admin: 10/18/18 10:16 Dose: 10 meq Tamsulosin HCl (Flomax -) 0.4 mg PO 0830 [facility] Last Admin: 10/18/18 10:17 Dose: 0.4 mg - Objective Vital Signs: Vital Signs Temperature 98.5 F 10/18/18 06:00 Pulse Rate 70 10/18/18 06:00 Respiratory Rate 20 10/18/18 06:00 Blood Pressure 144/67 10/18/18 06:00 O2 Sat by Pulse Oximetry (%) 97 10/16/18 22:11 Constitutional: Yes: Anxious HENT: Yes: Atraumatic Neck: Yes: Trachea Midline Cardiovascular: Yes: S1, S2 Respiratory: Yes: CTA Bilaterally Gastrointestinal: Yes: Normal Bowel Sounds, Soft Genitourinary: No: CVA Tenderness - Left, CVA Tenderness - Right Musculoskeletal: No: Joint Stiffness Edema: Yes Edema: LLE: Trace, RLE: Trace Neurological: Yes: Alert, Oriented Labs: CBC, BMP 10/18/18 05:30 10/18/18 05:30 Problem List - Problems (1) Hypertension Code(s): I10 - ESSENTIAL (PRIMARY) HYPERTENSION Qualifiers: Hypertension type: essential hypertension Qualified Code(s): I10 - Essential (primary) hypertension (2) Peripheral vascular disease Code(s): I73.9 - PERIPHERAL VASCULAR DISEASE, UNSPECIFIED (3) Hyponatremia Code(s): E87.1 - HYPO-OSMOLALITY AND HYPONATREMIA (4) Lower back pain Code(s): M54.5 - LOW BACK PAIN Qualifiers: Chronicity: unspecified Back pain laterality: right Sciatica presence: with sciatica Sciatica laterality: sciatica of right side Qualified Code(s) : M54.41 - Lumbago with sciatica, right side Assessment/Plan 83 year old Gentleman with hx of HTN, HLD, Prostate Ca, diverticulosis, PVD who presented with complaints of weakness and found to have hyponatremia with Na of 117. #Hyponatremia ...possible multifactorial etiology. The Serum Na now 131 mEq/L. #HTN #BPH/hx of prostate cancer #Hyperlipidemia Today's Serum Na 131 mEq/L Will avoid Thiazides. Trend Na daily Has LE pain. ? vascular ischemia. Can consider Gabapentin for symptom control if there is a component of Neuropathy. Thank you. Lorraine Samuel MD
--- NOTE | 2018-10-18 12:47 | PN ---
Progress Note, Physician Chief Complaint: Doing well, Sodium 131. History of Present Illness: HTN previously on Diovan HCT 160/12.5 whic was changed to Diovan 160. Unclear what meds t5hew patient was taking, SVT's - AVN re-entrant tachycardia.on Acetobutolol, RBBB. 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 Mild DM 2 Osteoporosis HLD BPH, S/P TURP LE varicose veins PAD LE. B/l SFA obstructive atherosclerotic plaques. Stent left femoral artery. Gastrectomy for perforated ulcer. Thrombocytopenia Hyponatremia with Na 128 - Current Medication List Current Medications: Active Medications Acetaminophen (Tylenol -) 325 mg PO Q6H PRN PRN Reason: PAIN Last Admin: 10/17/18 22:06 Dose: 325 mg Amlodipine Besylate (Norvasc -) 10 mg PO DAILY [facility] Last Admin: 10/18/18 10:16 Dose: 10 mg Ascorbic Acid (Vitamin C -) 1,000 mg PO DAILY [facility] Last Admin: 10/18/18 10:16 Dose: 1,000 mg Atorvastatin Calcium (Lipitor -) 40 mg PO HS [facility] Last Admin: 10/17/18 22:06 Dose: 40 mg Gabapentin (Neurontin -) 100 mg PO DAILY [facility] Last Admin: 10/18/18 10:16 Dose: 100 mg Glycerin (Glycerin Suppository Adult -) 1 each RC DAILY PRN PRN Reason: CONSTIPATION Last Admin: 10/17/18 11:00 Dose: 1 each Magnesium Hydroxide (Milk Of Magnesia -) 30 ml PO DAILY PRN PRN Reason: CONSTIPATION Non-Formulary Medication (Sectral) 1 tab PO BID [facility] Potassium Chloride (K-Dur -) 10 meq PO DAILY [facility] Last Admin: 10/18/18 10:16 Dose: 10 meq Tamsulosin HCl (Flomax -) 0.4 mg PO 0830 [facility] Last Admin: 10/18/18 10:17 Dose: 0.4 mg - Objective Vital Signs: Vital Signs Temperature 98.5 F 10/18/18 06:00 Pulse Rate 70 10/18/18 06:00 Respiratory Rate 20 10/18/18 06:00 Blood Pressure 144/67 10/18/18 06:00 O2 Sat by Pulse Oximetry (%) 97 10/16/18 22:11 Constitutional: Yes: No Distress, Anxious Eyes: Yes: Conjunctiva Clear, EOM Intact HENT: Yes: Atraumatic, Normocephalic Neck: Yes: Supple, Trachea Midline. No: Lymphadenopathy Cardiovascular: Yes: Regular Rate and Rhythm Respiratory: Yes: WNL, Regular, CTA Bilaterally Gastrointestinal: Yes: Normal Bowel Sounds, Soft ...Rectal Exam: Yes: Deferred Genitourinary: No: Anuria, Bladder Distention, CVA Tenderness - Left, CVA Tenderness - Right Breast(s): Yes: WNL Musculoskeletal: Yes: WNL Extremities: No: Amputation, Cold, Cool, Deformity Edema: No Peripheral Pulses WNL: No Integumentary: Yes: WNL Neurological: Yes: Alert, Oriented, Unsteady Gait, Weakness. No: Aphasia, Pre- Existing Deficit, Seizure ...Motor Strength: WNL Labs: CBC, BMP 10/18/18 05:30 10/18/18 05:30 Problem List - Problems (1) Fall in elderly patient Code(s): R29.6 - REPEATED FALLS (2) Hyponatremia Code(s): E87.1 - HYPO-OSMOLALITY AND HYPONATREMIA (3) Disc degeneration, lumbar Code(s): M51.36 - OTHER INTERVERTEBRAL DISC DEGENERATION, LUMBAR REGION (4) Constipation by delayed colonic transit Code(s): K59.01 - SLOW TRANSIT CONSTIPATION (5) Hypokalemia Code(s): E87.6 - HYPOKALEMIA (6) Gait disorder Code(s): R26.9 - UNSPECIFIED ABNORMALITIES OF GAIT AND MOBILITY (7) Hypertension Code(s): I10 - ESSENTIAL (PRIMARY) HYPERTENSION Qualifiers: Hypertension type: essential hypertension Qualified Code(s): I10 - Essential (primary) hypertension
--- NOTE | 2018-10-18 12:48 | DS ---
Physical Examination Vital Signs: Vital Signs Temperature 98.5 F 10/18/18 06:00 Pulse Rate 70 10/18/18 06:00 Respiratory Rate 20 10/18/18 06:00 Blood Pressure 144/67 10/18/18 06:00 O2 Sat by Pulse Oximetry (%) 97 10/16/18 22:11 Constitutional: Yes: No Distress, Anxious Eyes: Yes: Conjunctiva Clear, EOM Intact. No: Diplopia HENT: Yes: Atraumatic, Normocephalic. No: Drooling, Epistaxis, Hoarseness, Nasal Congestion, Pharyngeal Erythema, Rhinnorhea, Thrush Neck: Yes: Supple, Trachea Midline. No: Decreased ROM, Lymphadenopathy Cardiovascular: Yes: Regular Rate and Rhythm. No: Bradycardia, Tachycardia Respiratory: Yes: Regular, CTA Bilaterally. No: Accessory Muscle Use, Bradypnea , Cough Gastrointestinal: Yes: Normal Bowel Sounds, Soft. No: Abdomen, Obese, Ascites ...Rectal Exam: Yes: Deferred, Erythema Renal/: No: Anuria, Bladder Distention, CVA Tenderness - Left Breast(s): Yes: WNL Musculoskeletal: Yes: WNL. No: Back Pain, Joint Stiffness Extremities: No: Amputation, Calf Tenderness, Cold, Cool, Deformity Edema: No Peripheral Pulses WNL: No Integumentary: Yes: WNL Neurological: Yes: Alert, Oriented, Unsteady Gait, Weakness. No: Aphasia ...Motor Strength: WNL Psychiatric: Yes: WNL Labs: CBC, BMP 10/18/18 05:30 10/18/18 05:30 Discharge Summary Reason For Visit: DIZZINESS,HYPONATREMIA,FALL IN ELDERLY PATIENT Current Active Problems Constipation by delayed colonic transit (Acute) Dizziness (Acute) Fall in elderly patient (Acute) Gait disorder (Acute) Hypertension (Acute) Hypokalemia (Acute) Hyponatremia (Acute) Peripheral vascular disease (Acute) Condition: Stable - Instructions Disposition: NURSING HOME FACILITY - Home Medications Comprehensive Discharge Medication List: Ambulatory Orders Ascorbate Calcium [Vitamin C] 1,000 mg PO DAILY 11/17/15 Aspirin Coated [Ecotrin -] 325 mg PO DAILY 11/17/15 Atorvastatin Ca [Lipitor] 40 mg PO HS 11/17/15 Furosemide [Lasix -] 20 mg PO Q48H 11/17/15 Garlic 1,000 mg PO DAILY 11/17/15 Milk Thistle 500 mg PO BID 11/17/15 [place] 320 mg PO DAILY 11/17/15 Vitamin B Complex 1 each PO DAILY 11/17/15 Vitamin E 400 unit PO DAILY 11/17/15 Multivit-Min/FA/Lycopen/Lutein [Centrum Silver Tablet] 1 each PO DAILY 03/03/16 Coenzyme [id number]-[id number]-Lbw E [Co Q-10 with l-Carnitine Sftgl] 1 each PO DAILY 07/23/17 Potassium Chloride [Klor-Con 10] 10 meq PO DAILY 07/23/17 Sectral 1 tab PO BID 07/23/17 Tamsulosin HCl [Flomax] 0.4 mg PO DAILY 07/23/17 [place]-3S/Dha/Epa/Fish Oil [Fish Oil 1,200 mg Softgel] 1 each PO DAILY 01/28/18 Sodium Chloride Tablet - 1 gm PO BID #14 tablet 01/29/18 Valsartan [Diovan] 160 mg PO DAILY #30 tablet 01/29/18 traMADol HCL [Ultram -] 50 mg PO Q6H PRN #12 tablet MDD 4 tabs 02/25/18 Ibuprofen [Motrin -] 600 mg PO QID PRN #28 tablet 08/07/18
[2018-10-18 15:20] VITALS: BP 150/70; PULSE 71; TEMP 98.8
== END 2018-10-18 16:02 | DRG 644 ==
LOC: JER 06:56 → SUPCPDRO 06:56 → JERBED 09:43 → J8W 11:06
PROVIDERS: ADMIT Internal Medicine; ATTEND Internal Medicine
DX: E22.2 Syndrome of inappropriate secretion of antidiuretic hormone (principal); I47.1 Supraventricular tachycardia; I10 Essential (primary) hypertension; E78.5 Hyperlipidemia, unspecified; I45.10 Unspecified right bundle-branch block; E11.51 Type 2 diabetes mellitus with diabetic peripheral angiopathy without gangrene; R42 Dizziness and giddiness; M81.0 Age-related osteoporosis without current pathological fracture; M17.11 Unilateral primary osteoarthritis, right knee; M51.36 Other intervertebral disc degeneration, lumbar region; E87.6 Hypokalemia; K59.01 Slow transit constipation; C61 Malignant neoplasm of prostate; N40.0 Benign prostatic hyperplasia without lower urinary tract symptoms; R29.6 Repeated falls; M54.41 Lumbago with sciatica, right side; E66.9 Obesity, unspecified; Z68.30 Body mass index [BMI] 30.0-30.9, adult
CPT/HCPCS: 36415; 71045-TC-FY; 80048; 80051; 80053; 81003; 81015; 82378; 82550; 82570; 82962; 83735; 84100; 84156; 84295; 84300; 84439; 84443; 84481; 84484; 85025; 87086; 90688; 93005; 93010; 97116-GP; 97161-GP; 99284-25; G0008

== ENCOUNTER 2018-12-04 03:17 | Observation (INO) | payer OTHER, MEDICARE ==
[2018-12-04 03:35] VITALS: BMI 28.8
--- NOTE | 2018-12-04 04:01 | PDOC ---
Attending Attestation - Resident Resident Name: Maurice Escamilla - ED Attending Attestation I have performed the following: I have examined & evaluated the patient, The case was reviewed & discussed with the resident, I agree w/resident's findings & plan - HPI HPI: 12/04/18 06:53 Pt comes with feeling weak and feverish. No fever in the ER. - Physicial Exam PE: 12/04/18 06:54 Agree with resident exam. - Medical Decision Making 12/04/18 06:05 Pt will be admitted for hyponatremia./hypochloremia and hypokalemia 12/04/18 06:54 Hydrated in the ER and feeling better. Heart Score/ECG Review - ECG Intrepretation Rhythm: Regular Rhythm - [place]: Normal - QRS Widened: RBBB - ST and T Early Repolarization: No Non Specific ST-T Wave changes: No - ECG Impressions Normal ECG: Yes Non-specific ST Elevation: No Ischemic Changes: No Bradycardia: No Torsades robbie Pointes: No WPW: No
--- NOTE | 2018-12-04 04:09 | PDOC ---
History of Present Illness - General Chief Complaint: Cold Symptoms Stated Complaint: FEVER Time Seen by Provider: 12/04/18 03:40 History Source: Patient - History of Present Illness Initial Comments: 12/04/18 04:04 Patient is an 83M with history of recent hyponatremia admission 2 months ago, HTN, HLD, BPH s/p TURP, RBBB here today complaining of subjective fever for the past 2 days. Patient endorses associated urinary frequency without dysuria. Patient denies chest pain, shortness of breath and cough. Endorses rhinorrhea, but at baseline. No nausea, vomiting. No leg swelling, headache, neck pain. Past History - Past Medical History Allergies/Adverse Reactions: Allergies Allergy/AdvReac Type Severity Reaction Status Date / Time No Known Allergies Allergy Verified 12/04/18 03:27 Home Medications: Ambulatory Orders Aspirin Coated [Ecotrin -] 325 mg PO DAILY 11/17/15 Atorvastatin Ca [Lipitor] 40 mg PO HS 11/17/15 Potassium Chloride [Klor-Con 10] 10 meq PO DAILY 07/23/17 Tamsulosin HCl [Flomax] 0.4 mg PO DAILY 07/23/17 Ascorbic Acid [Vitamin C -] 1,000 mg PO DAILY tablet 10/18/18 Atenolol [Tenormin] 200 mg PO BID 12/04/18 Furosemide [Lasix] 20 mg PO DAILY 12/04/18 Garlic 1,000 mg PO DAILY 12/04/18 Milk Thistle 500 mg PO BID 12/04/18 Multivitamins [Tab-A-Vit -] 1 tab PO DAILY 12/04/18 [place]-3S/Dha/Epa/Fish Oil [Fish Oil 1,200 mg Softgel] 1 each PO DAILY 12/04/18 Saw [place] 320 mg PO DAILY 12/04/18 Valsartan/Hydrochlorothiazide [Valsartan-Hctz 160-12.5 mg Tab] 1 each PO BID 03/17 Anemia: No Asthma: No Cancer: Yes (PROSTATE, BASAL CELL OF SKIN) Cardiac Disorders: Yes (PALPITATION, ARRYTHMIA,ASHD CARDIAC CATH AND PES) CVA: No COPD: No CHF: No Dementia: No Diabetes: No GI Disorders: Yes (GASTRITIS, HIATAL HERNIA, DIVERTICULOSIS, HEMORRHOIDS;FUNDAL ULCER) Disorders: Yes (BPH) HTN: Yes Hypercholesterolemia: Yes Liver Disease: No Seizures: No Thyroid Disease: No - Surgical History Abdominal Surgery: Yes (PERFORATED STOMACH ULCER-PARTIAL GASTRECTOMY) Appendectomy: Yes Cardiac Surgery: No Cholecystectomy: No Lung Surgery: No Neurologic Surgery: No Orthopedic Surgery: No - Immunization History Immunization Up to Date: Yes - Suicide/Smoking/Psychosocial Hx Smoking History: Never smoked Have you smoked in the past 12 months: No If you are a former smoker, when did you quit?: 45 YRS Information on smoking cessation initiated: No Hx Alcohol Use: No Drug/Substance Use Hx: No Substance Use Type: None Hx Substance Use Treatment: No Review of Systems - Review of Systems Able to Perform ROS?: Yes Comments:: 12/04/18 04:09 GENERAL/CONSTITUTIONAL: +fever no chills. No weakness. HEAD, EYES, EARS, NOSE AND THROAT: No change in vision. No sore throat. CARDIOVASCULAR: No chest pain or shortness of breath RESPIRATORY: No cough, wheezing, or hemoptysis. GASTROINTESTINAL: No nausea, vomiting, diarrhea or constipation. GENITOURINARY: No dysuria, +frequency. MUSCULOSKELETAL: No joint or muscle swelling or pain. No neck or back pain. SKIN: No rash NEUROLOGIC: No headache, vertigo, loss of consciousness, or change in strength/ sensation. HEMATOLOGIC/LYMPHATIC: No anemia, easy bleeding, or history of blood clots. ALLERGIC/IMMUNOLOGIC: No hives or skin allergy. *Physical Exam - Vital Signs Last Vital Signs Temp Pulse Resp BP Pulse Ox 99.2 F 71 20 162/73 97 12/04/18 03:27 12/04/18 03:27 12/04/18 03:27 12/04/18 03:27 12/04/18 03:27 - Physical Exam Comments: 12/04/18 04:09 GENERAL: Awake, alert, and fully oriented, in no acute distress HEAD: No signs of trauma, normocephalic, atraumatic EYES: PERRLA, EOMI, sclera anicteric, conjunctiva clear ENT: Auricles normal inspection, hearing grossly normal, nares patent, oropharynx clear without exudates. Moist mucosa NECK: Normal ROM, supple, no lymphadenopathy, JVD, or masses LUNGS: No distress, speaks full sentences, clear to auscultation bilaterally HEART: Regular rate and rhythm, normal S1 and S2, no murmurs, rubs or gallops, peripheral pulses normal and equal bilaterally. ABDOMEN: Soft, nontender, normoactive bowel sounds. No guarding, no rebound. No masses EXTREMITIES: Normal inspection, Normal range of motion, no edema. No clubbing or cyanosis. NEUROLOGICAL: Cranial nerves II through XII grossly intact. Normal speech, no focal sensorimotor deficits SKIN: Warm, Dry, normal turgor, no rashes or lesions noted. ED Treatment Course - LABORATORY CBC & Chemistry Diagram: 12/04/18 04:06 12/04/18 04:06 - RADIOLOGY Radiology Studies Ordered: Category Date Time Status CHEST PA & LAT [RAD] Stat Radiology 12/04/18 03:51 Ordered Medical Decision Making - Medical Decision Making 12/04/18 04:10 Patient is 83M with history of recent hyponatremia admission 2 months ago, HTN, HLD, BPH s/p TURP, RBBB here today complaining of fever and urinary symptoms. Vitals normal and stable. DDx includes, but is not limited to: uti, pneumonia, viral uri, hyponatremia. Patient is fully alert and oriented. Has urology follow up tomorrow. Likely discharge. 12/04/18 05:13 EKG shows SR w/ 1st degree AV block (SD 222) with rate of 68, RBBB pattern. No st elevations/depressions. SD, QRS prolonged. Similar to prior EKGs. CBC normal. CMP shows Na 127. Trop neg. CXR clear. Given 500cc fluids, suspect overdiuresis causing patient to feel unwell. 12/04/18 06:21 Case d/w Rosie *DC/Admit/Observation/Transfer Diagnosis at time of Disposition: Hyponatremia - Discharge Dispostion Condition at time of disposition: Stable Decision to Admit order: Yes - Referrals Referrals: Enoc Pérez MD [Primary Care Provider] - - Patient Instructions - Post Discharge Activity
[2018-12-04 04:14] LABS: HEMATOCRIT 38.2 % (35.4-49); HEMOGLOBIN 13.5 GM/dL (11.7-16.9); MCH 33.6 pg (25.7-33.7); MCHC 35.4 g/dl (32.0-35.9); MEAN CELL VOLUME 94.9 fl (80-96); MEAN PLT VOLUME 8.8 fl (7.5-11.1); PLATELET COUNT 154 K/MM3 (134-434); RBC 4.03 M/mm3 (4.00-5.60); RDW 13.2 % (11.9-15.9); WHITE BLOOD COUNT 6.6 K/mm3 (4.0-10.0)
[2018-12-04 04:26] LABS: INR 1.03 (0.83-1.09); PROTHROMBIN TIME (PATIENT) 12.2 SEC (9.7-13.0)
[2018-12-04 04:43] LABS: PH,URINE 7.5 (5.0-8.0); URINE APPEARANCE CLEAR; URINE BILIRUBIN NEGATIVE (NEGATIVE); URINE COLOR YELLOW; URINE GLUCOSE (UA) NEGATIVE (NEGATIVE); URINE KETONE NEGATIVE (NEGATIVE); URINE LEUK ESTERASE NEGATIVE (NEGATIVE); URINE NITRITE NEGATIVE (NEGATIVE); URINE PROTEIN NEGATIVE (NEGATIVE)
[2018-12-04 04:50] LABS: ALBUMIN 3.7 g/dl (3.4-5.0); ALK PHOS 57 U/L (45-117); ANION GAP 10 MMOL/L (8-16); BILIRUBIN,TOTAL 0.9 mg/dL (0.2-1); BLOOD UREA NITROGEN 16 mg/dL (7-18); CALCIUM 8.1 mg/dL (8.5-10.1); CHLORIDE 88 mmol/L (98-107); CO2 29 mmol/L (21-32); CREATININE 0.8 mg/dL (0.55-1.3); GLUCOSE,RANDOM 115 mg/dL (74-106); POTASSIUM 3.2 mmol/L (3.5-5.1); SGOT/AST 21 U/L (15-37); SGPT/ALT 19 U/L (13-61); SODIUM 127 mmol/L (136-145); TOT PROT 6.4 g/dl (6.4-8.2)
[2018-12-04] MEDS ORDERED: SODIUM CHLORIDE 500 ML IV STA (05:53)
[2018-12-04] MEDS ORDERED: MAGNESIUM SULF 50% (8.12 MEQ/2 ML-1 GM VIAL) IVPB ONE (06:04)
[2018-12-04] MEDS ORDERED: MAGNESIUM SULF 50% (8.12 MEQ/2 ML-1 GM VIAL) ONE (06:18)
[2018-12-04] MEDS ORDERED: POTASSIUM CHLORIDE TABS 20 MEQ TABLET.ER (FP) PO ONE ×2 (06:20→06:31)
--- NOTE | 2018-12-04 09:18 | HP ---
CHIEF COMPLAINT: fever, malaise PCP: Dr. Pérez HISTORY OF PRESENT ILLNESS: Patient is an 83 year old male with a significant past medical history of hyponatremia, hypertension, HLD, BPH s/p TURP. He presents to the ED with complaints of not feeling well, feeling generally weaker and having fevers at home. He also reports urinary frequency without dysuria. Before I was able to examine patient, received a message that patient was upset and wanted to go home and wanted his peripheral IV removed. Patient tells me that he feels better now and just wants to leave, he came in for fevers at home and feels that he is wasting his time here. Discussed POC with patient and that the plan was to monitor his serum sodium which was low @ 127 on admission. This is usually done with blood work throughout the day. Also advised him that sometimes the diuretic in his cardiac meds may need to be adjusted to help his serum sodium not drop further. For the fever and malaise, I advised him to stay so that we can monitor his vitals, labs and temperature for signs of infection. He refused to stay and refused for me to make any medication changes. Has appt with his PCP this week and has appt with this urologist tomorrow. Says he will call his group billing coordinator for appt. I called his family friend listed as next of contact and discussed patient's wishes to leave AMA. She states that she is unable to come to the hospital but if he wishes to leave the hospital, then he should. There is no immediate family per patient and family friend that I can contact. Patient has the capacity to make his own decisions and signed out AMA despite the risks. ER course was notable for: (1) NA 127 (2) (3) Recent Travel: PAST MEDICAL HISTORY: PAST SURGICAL HISTORY: Social History: Smoking: Alcohol: Drugs: Family History: Allergies No Known Allergies Allergy (Verified 12/04/18 03:27) HOME MEDICATIONS: Home Medications Medication Instructions Recorded Aspirin Coated [Ecotrin -] 325 mg PO DAILY 11/17/15 Atorvastatin Ca [Lipitor] 40 mg PO HS 11/17/15 Potassium Chloride [Klor-Con 10] 10 meq PO DAILY 07/23/17 Tamsulosin HCl [Flomax] 0.4 mg PO DAILY 07/23/17 Ascorbic Acid [Vitamin C -] 1,000 mg PO DAILY tablet 10/18/18 Atenolol [Tenormin] 200 mg PO BID 12/04/18 Furosemide [Lasix] 20 mg PO DAILY 12/04/18 Garlic 1,000 mg PO DAILY 12/04/18 Milk Thistle 500 mg PO BID 12/04/18 Multivitamins [Tab-A-Vit -] 1 tab PO DAILY 12/04/18 [place]-3S/Dha/Epa/Fish Oil [Fish 1 each PO DAILY 12/04/18 Oil 1,200 mg Softgel] Saw [place] 320 mg PO DAILY 12/04/18 Valsartan/Hydrochlorothiazide 1 each PO BID 12/04/18 [Valsartan-Hctz 160-12.5 mg Tab] PHYSICAL EXAMINATION Vital Signs - 24 hr 12/04/18 12/04/18 12/04/18 03:27 06:39 06:41 Temperature 99.2 F 98.2 F Pulse Rate 71 Pulse Rate [ 66 Apical] Respiratory 20 20 Rate Blood Pressure 162/73 Blood Pressure 142/68 [Left Arm] O2 Sat by Pulse 97 99 99 Oximetry (%) GENERAL: Awake, alert, and fully oriented, in no acute distress. HEAD: Normal with no signs of trauma. EYES: Pupils equal, round and reactive to light, extraocular movements intact, sclera anicteric, conjunctiva clear. No lid lag. EARS, NOSE, THROAT: Ears normal, nares patent, oropharynx clear without exudates. Moist mucous membranes. NECK: Normal range of motion, supple without lymphadenopathy, JVD, or masses. LUNGS: Breath sounds equal, clear to auscultation bilaterally. HEART: Regular rate and rhythm ABDOMEN: Soft, nontender, not distended, normoactive bowel sounds, no guarding, no rebound, no masses. No hepatomegaly or splenomegaly. MUSCULOSKELETAL: No CVA tenderness. UPPER EXTREMITIES: No peripheral edema. LOWER EXTREMITIES: right lower ankle with +1 edema, per patient has had this in the past NEUROLOGICAL: Normal speech.walks with a cane PSYCHIATRIC: anxious, upset, wants to go home. Laboratory Results - last 24 hr 12/04/18 12/04/18 12/04/18 04:06 04:06 04:06 WBC 6.6 RBC 4.03 Hgb 13.5 Hct 38.2 MCV 94.9 MCH 33.6 MCHC 35.4 RDW 13.2 Plt Count 154 MPV 8.8 PT with INR 12.20 INR 1.03 Sodium Potassium Chloride Carbon Dioxide Anion Gap BUN Creatinine Creat Clearance w eGFR Random Glucose Calcium Total Bilirubin AST ALT Alkaline Phosphatase Creatine Kinase Troponin I Total Protein Albumin Urine Color Yellow Urine Appearance Clear Urine pH 7.5 Ur Specific [place] 1.020 Urine Protein Negative Urine Glucose (UA) Negative Urine Ketones Negative Urine Blood Negative Urine Nitrite Negative Urine Bilirubin Negative Urine Urobilinogen 1.0 Ur Leukocyte Esterase Negative 12/04/18 04:06 WBC RBC Hgb Hct MCV MCH MCHC RDW Plt Count MPV PT with INR INR Sodium 127 L Potassium 3.2 L Chloride 88 L Carbon Dioxide 29 Anion Gap 10 BUN 16 Creatinine 0.8 Creat Clearance w eGFR 92.10 Random Glucose 115 H Calcium 8.1 L Total Bilirubin 0.9 AST 21 ALT 19 Alkaline Phosphatase 57 Creatine Kinase 68 Troponin I 0.04 Total Protein 6.4 Albumin 3.7 Urine Color Urine Appearance Urine pH Ur Specific [place] Urine Protein Urine Glucose (UA) Urine Ketones Urine Blood Urine Nitrite Urine Bilirubin Urine Urobilinogen Ur Leukocyte Esterase ASSESSMENT/PLAN: patient signed out AMA, see above Visit type - Emergency Visit Emergency Visit: Yes ED Registration Date: 12/04/18 Care time: The patient presented to the Emergency Department on the above date and was hospitalized for further evaluation of their emergent condition. - New Patient This patient is new to me today: Yes Date on this admission: 12/04/18 - Critical Care Critical Care patient: No
--- NOTE | 2018-12-04 09:49 | DS ---
Physical Exam: SUBJECTIVE: Patient seen and examined. alert and oriented to person, place and time. OBJECTIVE: Before I was able to examine patient, received a message that patient was upset and wanted to go home and wanted his peripheral IV removed. Patient tells me that he feels better now and just wants to leave, he came in for fevers at home and feels that he is wasting his time here. Discussed POC with patient and that the plan was to monitor his serum sodium which was low @ 127 on admission. This is usually done with blood work throughout the day. Also advised him that sometimes the diuretic in his cardiac meds may need to be adjusted to help his serum sodium not drop further. For the fever and malaise, I advised him to stay so that we can monitor his vitals, labs and temperature for signs of infection. He refused to stay and refused for me to make any medication changes. Has appt with his PCP this week and has appt with this urologist tomorrow. Says he will call his administrative resources associate for appt. I called his family friend listed as next of contact and discussed patient's wishes to leave [place]. She states that she is unable to come to the hospital but if he wishes to leave the hospital, then he should. There is no immediate family per patient and family friend that I can contact. Vital Signs Period Temp Pulse Resp BP Sys/Jean-Baptiste Pulse Ox Last 24 Hr 98.2 F-99.2 F 66-71 20-20 142-162/68-73 97-99 PHYSICAL EXAM GENERAL: Awake, alert, and fully oriented, in no acute distress. HEAD: Normal with no signs of trauma. EYES: Pupils equal, round and reactive to light, extraocular movements intact, sclera anicteric, conjunctiva clear. No lid lag. EARS, NOSE, THROAT: Ears normal, nares patent, oropharynx clear without exudates. Moist mucous membranes. NECK: Normal range of motion, supple without lymphadenopathy, JVD, or masses. LUNGS: Breath sounds equal, clear to auscultation bilaterally. HEART: Regular rate and rhythm ABDOMEN: Soft, nontender, not distended, normoactive bowel sounds, no guarding, no rebound, no masses. No hepatomegaly or splenomegaly. MUSCULOSKELETAL: No CVA tenderness. UPPER EXTREMITIES: No peripheral edema. LOWER EXTREMITIES: right lower ankle with +1 edema, per patient has had this in the past NEUROLOGICAL: Normal speech.walks with a cane PSYCHIATRIC: anxious, upset, wants to go home. LABS Laboratory Results - last 24 hr 12/04/18 12/04/18 12/04/18 04:06 04:06 04:06 WBC 6.6 RBC 4.03 Hgb 13.5 Hct 38.2 MCV 94.9 MCH 33.6 MCHC 35.4 RDW 13.2 Plt Count 154 MPV 8.8 PT with INR 12.20 INR 1.03 Sodium Potassium Chloride Carbon Dioxide Anion Gap BUN Creatinine Creat Clearance w eGFR Random Glucose Calcium Total Bilirubin AST ALT Alkaline Phosphatase Creatine Kinase Troponin I Total Protein Albumin Urine Color Yellow Urine Appearance Clear Urine pH 7.5 Ur Specific [place] 1.020 Urine Protein Negative Urine Glucose (UA) Negative Urine Ketones Negative Urine Blood Negative Urine Nitrite Negative Urine Bilirubin Negative Urine Urobilinogen 1.0 Ur Leukocyte Esterase Negative 12/04/18 04:06 WBC RBC Hgb Hct MCV MCH MCHC RDW Plt Count MPV PT with INR INR Sodium 127 L Potassium 3.2 L Chloride 88 L Carbon Dioxide 29 Anion Gap 10 BUN 16 Creatinine 0.8 Creat Clearance w eGFR 92.10 Random Glucose 115 H Calcium 8.1 L Total Bilirubin 0.9 AST 21 ALT 19 Alkaline Phosphatase 57 Creatine Kinase 68 Troponin I 0.04 Total Protein 6.4 Albumin 3.7 Urine Color Urine Appearance Urine pH Ur Specific [place] Urine Protein Urine Glucose (UA) Urine Ketones Urine Blood Urine Nitrite Urine Bilirubin Urine Urobilinogen Ur Leukocyte Esterase HOSPITAL COURSE: Date of Admission:12/04/18 Date of Discharge: 12/04/18 discharged AMA. Minutes to complete discharge: 60 Discharge Summary Reason For Visit: HYPONATREMIA Current Active Problems Hyponatremia (Acute) Condition: Guarded - Instructions Diet, Activity, Other Instructions: Mr. Red Please stop taking the Valsartan/HCTZ combo pill and instead take Diovan 160mg daily. Please follow up with Dr. Pérez next week. Call his office for an appointment. Disposition: AGAINST MEDICAL ADVICE - Home Medications Comprehensive Discharge Medication List: Ambulatory Orders Aspirin Coated [Ecotrin -] 325 mg PO DAILY 11/17/15 Atorvastatin Ca [Lipitor] 40 mg PO HS 11/17/15 Potassium Chloride [Klor-Con 10] 10 meq PO DAILY 07/23/17 Tamsulosin HCl [Flomax] 0.4 mg PO DAILY 07/23/17 Ascorbic Acid [Vitamin C -] 1,000 mg PO DAILY tablet 10/18/18 Atenolol [Tenormin] 200 mg PO BID 12/04/18 Furosemide [Lasix] 20 mg PO DAILY 12/04/18 Garlic 1,000 mg PO DAILY 12/04/18 Milk Thistle 500 mg PO BID 12/04/18 Multivitamins [Tab-A-Vit -] 1 tab PO DAILY 12/04/18 [place]-3S/Dha/Epa/Fish Oil [Fish Oil 1,200 mg Softgel] 1 each PO DAILY 12/04/18 Saw [place] 320 mg PO DAILY 12/04/18 Valsartan/Hydrochlorothiazide [Valsartan-Hctz 160-12.5 mg Tab] 1 each PO BID 03/17 This patient is new to me today: Yes Date on this admission: 12/04/18 Emergency Visit: Yes ED Registration Date: 12/04/18 Care time: The patient presented to the Emergency Department on the above date and was hospitalized for further evaluation of their emergent condition. Critical Care patient: No - Discharge Referral Referred to [facility] No
[2018-12-04 09:58] VITALS: BP 163/62; PULSE 67; TEMP 98
--- NOTE | 2018-12-04 17:57 | EKG ---
Test Reason : Blood Pressure : / mmHG Vent. Rate : 068 BPM Atrial Rate : 068 BPM P-R Int : 222 ms QRS Dur : 128 ms QT Int : 388 ms P-R-T Axes : 009 -08 -12 degrees QTc Int : 412 ms SINUS RHYTHM WITH 1ST DEGREE A-V BLOCK RIGHT BUNDLE BRANCH BLOCK ABNORMAL ECG WHEN COMPARED WITH ECG OF 13-OCT-2018 08:17, CT INTERVAL HAS INCREASED QRS DURATION HAS DECREASED QT HAS SHORTENED Confirmed by CORA FERNANDEZ, SCOTT ([id number]) on 12/04/2018 5:57:01 PM Referred By: Confirmed By:SCOTT SHEPHERD MD
== END 2018-12-04 09:59 | disposition left against medical advice (07) ==
LOC: JER 03:17 → JERBED 06:08
PROVIDERS: ADMIT Internal Medicine; ATTEND Nurse Practitioner Family
PROC: 3E033GC Introduction of Other Therapeutic Substance into Peripheral Vein, Percutaneous Approach (ICD-10-PCS; principal; 2018-12-04)
PROC: 3E0337Z Introduction of Electrolytic and Water Balance Substance into Peripheral Vein, Percutaneous Approach (ICD-10-PCS; 2018-12-04)
DX: E87.1 Hypo-osmolality and hyponatremia (principal); I10 Essential (primary) hypertension; E78.5 Hyperlipidemia, unspecified; N40.0 Benign prostatic hyperplasia without lower urinary tract symptoms; I45.10 Unspecified right bundle-branch block; Z85.46 Personal history of malignant neoplasm of prostate; Z85.828 Personal history of other malignant neoplasm of skin; Z79.82 Long term (current) use of aspirin
CPT/HCPCS: 36415; 71046-TC-FY; 80053; 81003; 82550; 84484; 85027; 85610; 87086; 93005; 93010; 96361; 96374; 99282-25; G0378

== ENCOUNTER 2019-01-13 15:54 | Emergency (ER) | payer OTHER, MEDICARE ==
[2019-01-13 16:06] VITALS: BP 124/84; PULSE 90; TEMP 98; BMI 30.4
--- NOTE | 2019-01-13 16:44 | PDOC ---
History of Present Illness - General Chief Complaint: Injury Stated Complaint: FALL Time Seen by Provider: 01/13/19 16:30 History Source: Patient Exam Limitations: Language Barrier - History of Present Illness Initial Comments: 01/13/19 17:02 83 yo M with pmhx of CHF, HTN , HLD presents today s/p fall today at home. He states that he has bad knees and his has balance problems. Today he felt weak in legs and tried to brace himself on a chair at home. The chiar fell out from under him and he fell backwards and hit his head on a coffee table. He says the only pain he has is his head. Denies back pain or loss of consciousness. Denies CP,palpitations, abdominal pain, nausea, vomiting , fever or chills. Occurred: reports: just prior to arrival Severity: reports: mild Pain Location: reports: head Method of Injury: Yes: fall Modifying Factors: improves with: None Loss of Consciousness: no loss of consciousness Past History - Travel Traveled outside of the country in the last 30 days: No Close contact w/someone who was outside of country & ill: No - Past Medical History Allergies/Adverse Reactions: Allergies Allergy/AdvReac Type Severity Reaction Status Date / Time No Known Allergies Allergy Verified 01/13/19 16:06 Home Medications: Ambulatory Orders Aspirin Coated [Ecotrin -] 325 mg PO DAILY 11/17/15 Atorvastatin Ca [Lipitor] 40 mg PO HS 11/17/15 Potassium Chloride [Klor-Con 10] 10 meq PO DAILY 07/23/17 Tamsulosin HCl [Flomax] 0.4 mg PO DAILY 07/23/17 Ascorbic Acid [Vitamin C -] 1,000 mg PO DAILY tablet 10/18/18 Atenolol [Tenormin] 200 mg PO BID 12/04/18 Furosemide [Lasix] 20 mg PO DAILY 12/04/18 Garlic 1,000 mg PO DAILY 12/04/18 Milk Thistle 500 mg PO BID 12/04/18 Multivitamins [Tab-A-Vit -] 1 tab PO DAILY 12/04/18 [place]-3S/Dha/Epa/Fish Oil [Fish Oil 1,200 mg Softgel] 1 each PO DAILY 12/04/18 Saw [place] 320 mg PO DAILY 12/04/18 Valsartan/Hydrochlorothiazide [Valsartan-Hctz 160-12.5 mg Tab] 1 each PO BID 03/17 Anemia: No Asthma: No Cancer: Yes (PROSTATE, BASAL CELL OF SKIN) Cardiac Disorders: Yes (PALPITATION, ARRYTHMIA,ASHD CARDIAC CATH AND PES) CVA: No COPD: No CHF: No Dementia: No Diabetes: No GI Disorders: Yes (GASTRITIS, HIATAL HERNIA, DIVERTICULOSIS, HEMORRHOIDS;FUNDAL ULCER) Disorders: Yes (BPH) HTN: Yes Hypercholesterolemia: Yes Liver Disease: No Seizures: No Thyroid Disease: No - Surgical History Abdominal Surgery: Yes (PERFORATED STOMACH ULCER-PARTIAL GASTRECTOMY) Appendectomy: Yes Cardiac Surgery: No Cholecystectomy: No Lung Surgery: No Neurologic Surgery: No Orthopedic Surgery: No - Immunization History Td Vaccination: Yes TDAP Vaccination: Yes Immunization Up to Date: Yes - Suicide/Smoking/Psychosocial Hx Smoking History: Never smoked Have you smoked in the past 12 months: No If you are a former smoker, when did you quit?: 45 YRS Information on smoking cessation initiated: No Hx Alcohol Use: No Drug/Substance Use Hx: No Substance Use Type: None Hx Substance Use Treatment: No Trauma Specific PMHX - Complaint Specific PMHX Back Injury: No Neck Injury: No Review of Systems - Review of Systems Constitutional: No: Chills, Diaphoresis, Fever, Weakness HEENTM: No: Recent change in vision Respiratory: No: Cough, Orthopnea, Shortness of Breath Cardiac (ROS): No: Chest Pain, Edema ABD/GI: No: Diarrhea, Nausea, Vomiting Musculoskeletal: No: Joint Pain, Muscle Pain Neurological: Yes: Headache. No: Numbness, Weakness, Dizziness *Physical Exam - Vital Signs Last Vital Signs Temp Pulse Resp BP Pulse Ox 98.0 F 90 16 124/84 100 01/13/19 15:54 01/13/19 15:54 01/13/19 15:54 01/13/19 15:54 01/13/19 15:54 - Physical Exam General Appearance: Yes: Nourished, Appropriately Dressed. No: Apparent Distress HEENT: positive: COLE, Normal Voice Neck: positive: Supple. negative: Tender Respiratory/Chest: positive: Lungs Clear, Normal Breath Sounds. negative: Respiratory Distress, Accessory Muscle Use Cardiovascular: positive: Regular Rhythm, Regular Rate, S1, S2. 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 negative: Sensory Deficit Medical Decision Making - Medical Decision Making 01/13/19 17:05 83 yo M with pmhx of CHF, HTN , HLD presents today s/p fall today at home. Fell and hit his head. - WIll obtain a head and cervical spine CT
--- NOTE | 2019-01-13 18:53 | PDOC ---
*Physical Exam - Vital Signs Last Vital Signs Temp Pulse Resp BP Pulse Ox 98.0 F 90 16 124/84 100 01/13/19 15:54 01/13/19 15:54 01/13/19 15:54 01/13/19 15:54 01/13/19 15:54 Medical Decision Making - Medical Decision Making 01/13/19 18:53 Patient signed out by resident Dr. Calles In short patient is 83 year old man with a history of CHF, HTN, HLD presents s/ p fall today and trauma and laceration to the back of the head w/o LOC. pending head CT and cervical spine CT ED Course 01/13/19 19:[address]: negative pending cervical spine patient *DC/Admit/Observation/Transfer Diagnosis at time of Disposition: Laceration - Discharge Dispostion Disposition: HOME Condition at time of disposition: Stable Decision to Admit order: No - Referrals - Patient Instructions Printed Discharge Instructions: DI for Laceration Repair Additional Instructions: You were seen in the ED for complaints of laceration to the back of the head. In the ED you were evaluated and had imaging that was negative. You had a laceration repair done with earnest. There does not appear to be an acute need for immediate hospitalization. You are advised to follow up with your Primary Care Physician within 1 week. Please return to the ED or your Family Physician within 5-7 days for staple removal. Return to the ED immediately if you experience worsening head pain, swelling or draining from the wound, fevers, nausea, vomiting or loss of consciousness. - Post Discharge Activity
[2019-01-13] MEDS ORDERED: LIDOCAINE HCL 1%, 10 MG/ML (50 mL VIAL) SQ ONE (19:58)
[2019-01-13] MEDS ORDERED: LIDOCAINE HCL 1%, 10 MG/ML (20ML VIAL) ONE (20:20)
[2019-01-13] MEDS ORDERED: DIPHTH,PERTUSS(ACELL),TET 0.5 ML DISP.SYRIN IM ONE ×2 (20:38→20:49)
--- NOTE | 2019-01-13 21:13 | PDOC ---
Documentation entered by Declan Reza SCRIBE, acting as scribe for Guicho Mejia MD. Guicho Mejia MD: This documentation has been prepared by the Juaquin murray Nirvannie, SCRIBE, under my direction and personally reviewed by me in its entirety. I confirm that the documentation accurately reflects all work, treatment, procedures, and medical decision making performed by me. Attending Attestation - Resident Resident Name: Juan Calles - ED Attending Attestation I have performed the following: I have examined & evaluated the patient, The case was reviewed & discussed with the resident, I agree w/resident's findings & plan - HPI HPI: 01/13/19 17:12 The patient is a 83 year old male, with a significant past medical history of CHF and BPH, who presents to the emergency department s/p fall. As per patient, he has chronic unsteadiness secondary to bad knees. Earlier today, he stood up , attempted to brace himself on a chair, when the chair fell sideways causing him to fall backwards and hitting his head. Denies LOC. Reports bleeding from the back of his head. Does not remember last tdap. He denies any neck pain or focal change in strength/sensation. He denies any recent fevers, chills, headache or dizziness. He denies any recent nausea, vomit , diarrhea or constipation. He denies any recent chest pain or shortness of breath. He denies any recent dysuria, frequency, urgency or hematuria. Allergies: NKDA - Physicial Exam PE: 01/13/19 17:12 GENERAL: Awake, alert, and fully oriented, in no acute distress HEAD: 2cm linear laceration to the posterior aspect of the head, at the midline EYES: EOMI, sclera anicteric, conjunctiva clear ENT: Nares patent, oropharynx clear without exudates. Moist mucosa NECK: Normal ROM, supple, no lymphadenopathy, JVD, or masses LUNGS: Breath sounds equal, clear to auscultation bilaterally. No wheezes, and no crackles HEART: Regular rate and rhythm, normal S1 and S2, no murmurs, rubs or gallops ABDOMEN: Soft, nontender, normoactive bowel sounds. No guarding, no rebound. No masses EXTREMITIES: Normal range of motion, no edema. No cords, erythema, or tenderness BACK: No midline spinal tenderness in cervical/thoracic/lumbar region NEUROLOGICAL: Normal speech, cranial nerves intact, negative pronator drift, 5/ 5 strength in all 4 extremities, normal sensation to light touch in all 4 extremities, normal cerebellar exam, normal gait, normal tone SKIN: Other than laceration noted above, skin is warm, Dry, normal turgor, no rashes or lesions noted. - Medical Decision Making 01/13/19 21:10 83yo M presents to the ED with a head injury 2/2 mechanical fall Exam with laceration, otherwise pt AOx3, no evidence of trauma otherwise. Neuro intact CTH, CT c-spine wnl RPt vitals with HR 70, BP 128/82, RR 18, O2 sat 99% RA Laceration washed out, stapled Pt clinically well appearing, stable for DC home I discussed the physical exam findings, ancillary test results and final diagnoses with the patient. I answered all of the patient's questions. The patient was satisfied with the care received and felt comfortable with the discharge plan and treatment plan. The patient will call their primary care physician within 24 hours to arrange follow-up and will return to the Emergency Department with any new, persistent or worsening symptoms.
== END 2019-01-13 21:04 | disposition home or self-care (01) ==
LOC: JER 15:54
PROC: 3E0234Z Introduction of Serum, Toxoid and Vaccine into Muscle, Percutaneous Approach (ICD-10-PCS; principal; 2019-01-13)
PROC: 3E00XBZ Introduction of Anesthetic Agent into Skin and Mucous Membranes, External Approach (ICD-10-PCS; 2019-01-13)
PROC: 0HQ0XZZ Repair Scalp Skin, External Approach (ICD-10-PCS; 2019-01-13)
DX: S01.81XA Laceration without foreign body of other part of head, initial encounter (principal); W01.190A Fall on same level from slipping, tripping and stumbling with subsequent striking against furniture, initial encounter; Y93.89 Activity, other specified; Y92.038 Other place in apartment as the place of occurrence of the external cause; Y99.8 Other external cause status; R26.81 Unsteadiness on feet; I25.10 Atherosclerotic heart disease of native coronary artery without angina pectoris; I11.0 Hypertensive heart disease with heart failure; Z95.5 Presence of coronary angioplasty implant and graft; I50.9 Heart failure, unspecified; E78.00 Pure hypercholesterolemia, unspecified; N40.0 Benign prostatic hyperplasia without lower urinary tract symptoms; Z87.19 Personal history of other diseases of the digestive system; Z85.828 Personal history of other malignant neoplasm of skin
CPT/HCPCS: 12001-25; 70450-TC; 72125-TC; 90471; 90715; 96372; 99282-25

== ENCOUNTER 2019-01-20 17:24 | Emergency (ER) | payer OTHER, MEDICARE ==
--- NOTE | 2019-01-20 17:27 | PDOC ---
Rapid Medical Evaluation Time Seen by Provider: 01/20/19 17:26 Medical Evaluation: Allergies Allergy/AdvReac Type Severity Reaction Status Date / Time No Known Allergies Allergy Verified 01/13/19 16:06 01/20/19 17:26 I have performed a brief in-person evaluation of this patient. The patient presents with a chief complaint of: staple removal. seen here 01/13 s/p fall. denies any current symptoms. Pertinent physical exam findings: earnest to posterior scalp I have ordered the following: nothing The patient will proceed to the ED for further evaluation.
[2019-01-20 17:30] VITALS: BP 155/67; PULSE 81; TEMP 97.5; BMI 28.1
--- NOTE | 2019-01-20 18:21 | PDOC ---
Suture Removal/Wound Check HPI - History of Present Illness Chief Complaint: Suture/Staple Removal(Here) Stated Complaint: earnest removal Time Seen by Provider: 01/20/19 17:26 History Source: Yes: Patient Exam Limitations: Yes: No Limitations [facility] Previous ED Treatment Type of procedure performed on last visit: Yes: Laceration Repair Tetanus Immunization: Yes: Up to Date Antibiotics Prescribed: No Past History - Past Medical History Allergies/Adverse Reactions: Allergies Allergy/AdvReac Type Severity Reaction Status Date / Time No Known Allergies Allergy Verified 01/20/19 17:30 Home Medications: Ambulatory Orders Aspirin Coated [Ecotrin -] 325 mg PO DAILY 11/17/15 Atorvastatin Ca [Lipitor] 40 mg PO HS 11/17/15 Potassium Chloride [Klor-Con 10] 10 meq PO DAILY 07/23/17 Tamsulosin HCl [Flomax] 0.4 mg PO DAILY 07/23/17 Ascorbic Acid [Vitamin C -] 1,000 mg PO DAILY tablet 10/18/18 Atenolol [Tenormin] 200 mg PO BID 12/04/18 Furosemide [Lasix] 20 mg PO DAILY 12/04/18 Garlic 1,000 mg PO DAILY 12/04/18 Milk Thistle 500 mg PO BID 12/04/18 Multivitamins [Tab-A-Vit -] 1 tab PO DAILY 12/04/18 [place]-3S/Dha/Epa/Fish Oil [Fish Oil 1,200 mg Softgel] 1 each PO DAILY 12/04/18 Saw [place] 320 mg PO DAILY 12/04/18 Valsartan/Hydrochlorothiazide [Valsartan-Hctz 160-12.5 mg Tab] 1 each PO BID 03/17 Anemia: No Asthma: No Cancer: Yes (PROSTATE, BASAL CELL OF SKIN) Cardiac Disorders: Yes (PALPITATION, ARRYTHMIA,ASHD CARDIAC CATH AND PES) CVA: No COPD: No CHF: No Dementia: No Diabetes: No GI Disorders: Yes (GASTRITIS, HIATAL HERNIA, DIVERTICULOSIS, HEMORRHOIDS;FUNDAL ULCER) Disorders: Yes (BPH) HTN: Yes Hypercholesterolemia: Yes Liver Disease: No Seizures: No Thyroid Disease: No - Surgical History Abdominal Surgery: Yes (PERFORATED STOMACH ULCER-PARTIAL GASTRECTOMY) Appendectomy: Yes Cardiac Surgery: No Cholecystectomy: No Lung Surgery: No Neurologic Surgery: No Orthopedic Surgery: No - Immunization History Td Vaccination: Yes TDAP Vaccination: Yes Immunization Up to Date: Yes - Suicide/Smoking/Psychosocial Hx Smoking History: Former smoker Have you smoked in the past 12 months: No If you are a former smoker, when did you quit?: 45 YRS Information on smoking cessation initiated: No Hx Alcohol Use: No Drug/Substance Use Hx: No Substance Use Type: None Hx Substance Use Treatment: No *Physical Exam - Vital Signs Last Vital Signs Temp Pulse Resp BP Pulse Ox 97.5 F L 81 17 155/67 96 01/20/19 17:28 01/20/19 17:28 01/20/19 17:28 01/20/19 17:28 01/20/19 17:28 - Physical Exam General Appearance: Yes: Nourished, Appropriately Dressed. No: Apparent Distress HEENT: positive: COLE, Normal ENT Inspection, TMs Normal, Pharynx Normal, Other (3 earnest intact to occiput, well approximated wound, without crepitus, step- offs or evidence of cellulitis.) Gastrointestinal/Abdominal: positive: Soft. 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
== END 2019-01-20 18:23 | disposition home or self-care (01) ==
LOC: JERFT 17:24
DX: Z48.817 Encounter for surgical aftercare following surgery on the skin and subcutaneous tissue (principal); Z48.02 Encounter for removal of sutures
CPT/HCPCS: 99281-25

== ENCOUNTER 2019-01-21 13:13 | Emergency (ER) | payer OTHER, MEDICARE | END 2019-01-21 14:52 | disposition home or self-care (01) | LOC: JER 13:13 → JERFT 14:52 ==

== ENCOUNTER 2019-02-03 01:01 | Emergency (ER) | payer OTHER, MEDICARE | END 2019-02-03 07:25 | disposition home or self-care (01) | LOC: JER 01:01 ==

== ENCOUNTER 2019-03-16 14:11 | Inpatient (IN) | payer OTHER, MEDICARE ==
--- NOTE | 2019-03-16 14:20 | PDOC ---
Rapid Medical Evaluation Chief Complaint: Pain Time Seen by Provider: 03/16/19 14:15 Medical Evaluation: Allergies Allergy/AdvReac Type Severity Reaction Status Date / Time No Known Allergies Allergy Verified 02/03/19 01:14 03/16/19 14:16 I have performed a brief in-person evaluation of this patient. The patient presents with a chief complaint of: constipated x 2 days, no resolve with Prune juice or Miralax Pertinent physical exam findings: abd soft/ no rebound I have ordered the following: Flat and Upright Abd The patient will proceed to the ED for further evaluation. 03/16/19 14:21 Discharge Disposition - Diagnosis Constipated - Referrals - Patient Instructions - Post Discharge Activity
[2019-03-16 14:21] VITALS: BMI 28.8
--- NOTE | 2019-03-16 16:22 | PDOC ---
History of Present Illness - General Chief Complaint: Constipation Stated Complaint: CONSTIPATION Time Seen by Provider: 03/16/19 14:15 History Source: Patient, Rn Orthopedic Used, Primary Care Provider (GI doctor) Exam Limitations: Language Barrier (Indonesian speaker) - History of Present Illness Initial Comments: 83 yo M PMH p/w constipation. Difficult to get history due to translation technical difficulties. Says that he has not had a BM in 10 days despite trying Miralax and prune juice at home. Has been constipated 3-4 days in the past, but not to this extent. Describes his pain as lower abdominal burning pain. Says he has a prostate issue which makes it difficult to urinate at baseline, and some issue with his heart. Denies CP or any new urinary symptoms. Unable to complete rest of ROS due to translation issues, however patient recommended talking to his GI doctor, Dr. Lennox Mott. Per Dr. Mott, he was last seen on March 10, 2018 for constipation. Gave him fleet enema for 3 days and Miralax 3 times a day for 5 days. He had a colonoscopy 2 years ago which showed diverticulosis and polyps, but no obstruction. Dr. Mott recommended doing mineral oil enemas instead of Fleet enemas. 03/16/19 16:15 Past History - Past Medical History Allergies/Adverse Reactions: Allergies Allergy/AdvReac Type Severity Reaction Status Date / Time No Known Allergies Allergy Verified 03/16/19 14:20 Home Medications: Ambulatory Orders Aspirin Coated [Ecotrin -] 325 mg PO DAILY 11/17/15 Atorvastatin Ca [Lipitor] 40 mg PO HS 11/17/15 Potassium Chloride [Klor-Con 10] 10 meq PO DAILY 07/23/17 Tamsulosin HCl [Flomax] 0.4 mg PO DAILY 07/23/17 Ascorbic Acid [Vitamin C -] 1,000 mg PO DAILY tablet 10/18/18 Atenolol [Tenormin] 200 mg PO BID 12/04/18 Furosemide [Lasix] 20 mg PO DAILY 12/04/18 Garlic 1,000 mg PO DAILY 12/04/18 Milk Thistle 500 mg PO BID 12/04/18 Multivitamins [Tab-A-Vit -] 1 tab PO DAILY 12/04/18 [place]-3S/Dha/Epa/Fish Oil [Fish Oil 1,200 mg Softgel] 1 each PO DAILY 12/04/18 Saw [place] 320 mg PO DAILY 12/04/18 Valsartan/Hydrochlorothiazide [Valsartan-Hctz 160-12.5 mg Tab] 1 each PO BID 03/17 Anemia: No Asthma: No Cancer: Yes (PROSTATE, BASAL CELL OF SKIN) Cardiac Disorders: Yes (PALPITATION, ARRYTHMIA,ASHD CARDIAC CATH AND PES) CVA: No COPD: No CHF: No Dementia: No Diabetes: No GI Disorders: Yes (GASTRITIS, HIATAL HERNIA, DIVERTICULOSIS, HEMORRHOIDS;FUNDAL ULCER) Disorders: Yes (BPH) HTN: Yes Hypercholesterolemia: Yes Liver Disease: No Seizures: No Thyroid Disease: No - Surgical History Abdominal Surgery: Yes (PERFORATED STOMACH ULCER-PARTIAL GASTRECTOMY) Appendectomy: Yes Cardiac Surgery: No Cholecystectomy: No Lung Surgery: No Neurologic Surgery: No Orthopedic Surgery: No - Immunization History Td Vaccination: Yes TDAP Vaccination: Yes Immunization Up to Date: Yes - Suicide/Smoking/Psychosocial Hx Smoking History: Never smoked Have you smoked in the past 12 months: No If you are a former smoker, when did you quit?: 45 YRS Information on smoking cessation initiated: No Hx Alcohol Use: No Drug/Substance Use Hx: No Substance Use Type: None Hx Substance Use Treatment: No Review of Systems - Review of Systems Able to Perform ROS?: No (translation issues) Is the patient limited [place] proficient: Yes Cardiac (ROS): No: Chest Pain : No: Burning, Dysuria *Physical Exam - Vital Signs Last Vital Signs Temp Pulse Resp BP Pulse Ox 98.6 F 71 18 112/67 100 03/16/19 14:18 03/16/19 14:18 03/16/19 14:18 03/16/19 14:18 03/16/19 14:18 - Physical Exam General Appearance: Yes: Nourished, Appropriately Dressed. No: Apparent Distress HEENT: positive: EOMI, COLE, Normal ENT Inspection, Normal Voice, Symmetrical, Pharynx Normal Neck: positive: Trachea midline, Supple Respiratory/Chest: positive: Lungs Clear, Normal Breath Sounds. negative: Chest Tender, Respiratory Distress, Accessory Muscle Use Cardiovascular: positive: Regular Rhythm, Regular Rate Gastrointestinal/Abdominal: positive: Normal Bowel Sounds, Soft. negative: Tender Musculoskeletal: positive: Normal Inspection. 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 Had a colonoscopy two years ago with no obstruction. Will attempt mineral oil enema. 03/16/19 16:25 History clarified, patient has not passed stool or gas in over a day. Will plan for CT with PO and IV contrast. 03/16/19 16:43 CBC wnl 03/16/19 17:31 Lactate 0.9 03/16/19 17:47 Na 121, K 3.3, Cl 81. Starting 500cc NS and giving 20meq K. 03/16/19 17:54 Cr 0.7, getting CT abd/pelvis w/w/o contrast and PO. Patient discussed with Dr. Pérez, said that this is not a new issue. Recommended giving an enema and continuing to follow up on an outpatient basis. 03/16/19 18:25 *DC/Admit/Observation/Transfer Diagnosis at time of Disposition: Constipated - Referrals Referrals: Enoc Pérez MD [Primary Care Provider] - - Patient Instructions - Post Discharge Activity
[2019-03-16 17:26] LABS: BASO % 0.6 % (0-2.0); EOS % 0.9 % (0-4.5); HEMATOCRIT 38.2 % (35.4-49); HEMOGLOBIN 14.3 GM/dL (11.7-16.9); MCH 33.3 pg (25.7-33.7); MCHC 37.3 g/dl (32.0-35.9); MEAN CELL VOLUME 89.1 fl (80-96); MEAN PLT VOLUME 9.2 fl (7.5-11.1); MONO % 12.4 % (3.8-10.2); NEUT % 67.1 % (42.8-82.8); PLATELET COUNT 176 K/MM3 (134-434); RBC 4.29 M/mm3 (4.00-5.60); RDW 12.6 % (11.9-15.9); WHITE BLOOD COUNT 5.9 K/mm3 (4.0-10.0)
[2019-03-16 17:37] LABS: PROTHROMBIN TIME (PATIENT) 11.8 SEC (9.7-13.0)
[2019-03-16 17:40] LABS: ACTIVATED PTT 29.1 SECONDS (25.2-36.5)
[2019-03-16 17:51] LABS: ALBUMIN 3.9 g/dl (3.4-5.0); BILIRUBIN,TOTAL 1.9 mg/dL (0.2-1); BLOOD UREA NITROGEN 12.3 mg/dL (7-18); CALCIUM 8.7 mg/dL (8.5-10.1); CREATININE 0.7 mg/dL (0.55-1.3); POTASSIUM 3.3 mmol/L (3.5-5.1); TOT PROT 6.7 g/dl (6.4-8.2)
--- NOTE | 2019-03-16 18:09 | PDOC ---
Documentation entered by Rasheeda Noriega SCRIBE, acting as scribe for Jesika Morris MD. Jesika Morris MD: This documentation has been prepared by the Leann murray Brenda, SCRIBE, under my direction and personally reviewed by me in its entirety. I confirm that the documentation accurately reflects all work, treatment, procedures, and medical decision making performed by me. Attending Attestation - Resident Resident Name: Dang Bernabe - ED Attending Attestation I have performed the following: I have examined & evaluated the patient, The case was reviewed & discussed with the resident, I agree w/resident's findings & plan, Exceptions are as noted - HPI HPI: 03/16/19 17:21 The patient is an 83 year old male, with a significant PMH of HTN, HLD, Afib and unknown prostate issue, who presents to the emergency department with 10 days of constipation and abdominal pain. The patient reports taking miralax and prune juice at home, to no avail. He notes that he has had bouts of constipation for 3-4 days, but never this far. The patient also notes that he has lower abdominal pain, that feels as burning. Patient was psanish-speaking only. Last colonoscopy was 2 years ago. The patient denies chest pain, shortness of breath, headache and dizziness. Denies fever, chills, nausea, vomiting, diarrhea and constipation. Denies dysuria, frequency, urgency and hematuria. Denies any other symptoms. Allergies: NKA Past surgical history: PERFORATED STOMACH ULCER-PARTIAL GASTRECTOMY and appendectomy Social history: Denies PCP: Dr. Pérez Bag Liner: Dr. Lennox Mott. - Physicial Exam PE: 03/16/19 17:22 GENERAL: The patient is in no acute distress. ENT: Moist mucous membranes. NECK: Normal range of motion, supple LUNGS: Breath sounds equal, clear to auscultation bilaterally. HEART: Regular rate and rhythm, normal S1 and S2 without murmur, rub or gallop. ABDOMEN: Soft, nontender, non distended EXTREMITIES: Normal range of motion, no edema. NEUROLOGICAL: Cranial nerves II through XII grossly intact. Normal speech. No focal neurological deficits. SKIN: Warm, Dry, normal turgor, no rashes or lesions noted. - Medical Decision Making 03/16/19 18:08 Laboratory Tests 03/16/19 03/16/19 03/16/19 17:08 17:08 17:08 WBC 5.9 Hgb 14.3 Hct 38.2 Plt Count 176 INR 1.00 Sodium Potassium Chloride Carbon Dioxide BUN Creatinine Random Glucose Lactic Acid 0.9 03/16/19 17:08 WBC Hgb Hct Plt Count INR Sodium 121 L Potassium 3.3 L Chloride 81 L Carbon Dioxide 31 BUN 12.3 Creatinine 0.7 Random Glucose 116 H Lactic Acid Will do CT Signed out to overnight team pending CT Will need to be admitted given hyponatremia
[2019-03-16] MEDS ORDERED: POTASSIUM CHLORIDE 20 MEQ PREMIX IVPB 100 ML IVPB ONE (18:23)
[2019-03-16] MEDS ORDERED: SODIUM CHLORIDE 500 ML IV SCH (18:30)
[2019-03-16] MEDS ORDERED: KCL 10 MEQ IVPB 10 MEQ/100 ML INFUS.BAG IVPB ONE ×2 (18:39→22:03)
[2019-03-16] MEDS: KCL 10 MEQ IVPB 10 MEQ/100 ML INFUS.BAG IVPB SCH ×2 (18:48→22:45)
--- NOTE | 2019-03-16 19:44 | PDOC ---
*Physical Exam - Vital Signs Last Vital Signs Temp Pulse Resp BP Pulse Ox 98.6 F 71 18 112/67 100 03/16/19 14:18 03/16/19 14:18 03/16/19 14:18 03/16/19 14:18 03/16/19 14:18 - Physical Exam General Appearance: Yes: Nourished, Appropriately Dressed. No: Apparent Distress HEENT: positive: EOMI, COLE, Normal ENT Inspection Neck: positive: Supple Respiratory/Chest: positive: Lungs Clear, Normal Breath Sounds Cardiovascular: positive: Regular Rhythm, Regular Rate, S1, S2 Vascular Pulses: Dorsalis-Pedis (R): 2+, Doralis-Pedis (L): 2+ Gastrointestinal/Abdominal: positive: Tender, Tenderness. 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, Fully Oriented, Alert, Normal Mood/ Affect, Normal Response, Motor Strength 01/01 ED Treatment Course - LABORATORY CBC & Chemistry Diagram: 03/16/19 17:08 03/16/19 17:08 - ADDITIONAL ORDERS Additional order review: Laboratory Results 03/16/19 03/16/19 03/16/19 17:08 17:08 17:08 PT with INR 11.80 INR 1.00 PTT (Actin FS) 29.1 Sodium 121 L Potassium 3.3 L Chloride 81 L Carbon Dioxide 31 Anion Gap 9 BUN 12.3 Creatinine 0.7 Est GFR (CKD-EPI)AfAm 100.44 Est GFR (CKD-EPI)NonAf 86.66 Random Glucose 116 H Lactic Acid 0.9 Calcium 8.7 Total Bilirubin 1.9 H AST 24 ALT 23 Alkaline Phosphatase 63 Total Protein 6.7 Albumin 3.9 03/16/19 17:08 RBC 4.29 MCV 89.1 D MCHC 37.3 H RDW 12.6 MPV 9.2 Neutrophils % 67.1 Lymphocytes % 19.0 Monocytes % 12.4 H Eosinophils % 0.9 Basophils % 0.6 - RADIOLOGY Radiology Studies Ordered: Category Date Time Status ABDOMEN & PELVIS CT WITH CONTR [CT] Stat CT Scan 03/16/19 19:03 Ordered Radiograph Interpretation: CTAP: Abdomen and pelvis CT with contrast Clinical information: abdominal pain, constipation for 10 days Multiplanar imaging was performed utilizing intravenous as well as oral contrast. No evidence of pneumoperitoneum, abscess, free intraperitoneal fluid or bowel obstruction. The appendix is not definitely visualized however there are no indirect CT signs of acute appendicitis. No CT evidence of acute diverticulitis or obvious colitis. No gross small bowel pathology is seen. No definite interval change is identified in comparison to a prior CT study of 01/28/2018. Pleural calcifications are noted along the right diaphragmatic surface posteriorly. Stable 1 cm left hepatic lobe cyst. Moderate left renal cortical scarring. Left adrenal gland thickening. The spleen, pancreas, gallbladder, right adrenal gland and right kidney demonstrate no discrete abnormality. Mild diffuse atherosclerotic dilatation of the abdominal aorta. Somewhat extensive atherosclerotic aortoiliac mural changes. No definite lymphadenopathy is seen. Mild to moderate prostate enlargement. Possible transurethral surgery. The visualized osseous structures demonstrate no gross CT evidence of acute abnormality. Moderate colonic fecal retention. Probable bilateral inguinal hernia repairs. No recurrent herniation is noted. IMPRESSION : No definite CT findings of acute pathology are identified. There has been no definite interval change in comparison to a prior exam of 01/28/2018. Moderate left renal cortical scarring. Stable left adrenal gland thickening consistent with either nodular hyperplasia versus subcentimeter adenomas. Right diaphragmatic pleural calcification. Small stable left hepatic lobe cyst. Colonic fecal retention which is probably moderate. - Medications Given in the ED: ED Medications Discontinued Medications Generic Name Dose Route Start Last Admin Trade Name Freq PRN Reason Stop Dose Admin Potassium Chloride 20 meq 03/16/19 18:23 03/16/19 18:47 Potassium Chloride 20 Meq Premix Ivpb - IVPB 03/16/19 18:24 Not Given ONCE ONE Medical Decision Making - Medical Decision Making Received patient as a sign out from day team pending CTAP and admission to hospital for electrolyte abnormalities, electrolyte corrections, and GI consult. 83 yo M w a hx of chronic constipation, prostate ca, BCC, CHF, gastritis, Hiatal hernia, diverticulosis, hemorrhoids, fundal ulcer, partial gastrectomy, appendectomy, HTN, BPH, and HCL here with no bowel movement in ten days and lower abdominal pain despite taking miralax and prune juice. Electrolyte abnormalities noted with sodium and potassium Plan: CTAP, GI consult, admit GI consult: last seen 03/10/18. Gave him fleet enema for 3 days and Miralax 3 times a day for 5 days. He had a colonoscopy 2 years ago which showed diverticulosis and polyps, but no obstruction. Dr. Mott recommended doing mineral oil enemas instead of Fleet enemas. CTAP: No acute pathology. Dispo: Admit to hospital *DC/Admit/Observation/Transfer Diagnosis at time of Disposition: Hypokalemia, Hyponatremia Constipated Qualifiers: Constipation type: other constipation type Qualified Code(s): K59.09 - Other constipation Abdominal pain Qualifiers: Abdominal location: lower abdomen, unspecified Qualified Code(s): R10.30 - Lower abdominal pain, unspecified - Discharge Dispostion Condition at time of disposition: Guarded Decision to Admit order: Yes - Referrals Referrals: Enoc Pérez MD [Primary Care Provider] - - Patient Instructions - Post Discharge Activity
[2019-03-16] MEDS ORDERED: POTASSIUM CHLORIDE ORAL LIQUID 20 MEQ/15 ML PO ONE (22:53)
[2019-03-16] MEDS ORDERED: POTASSIUM CHLORIDE ORAL LIQUID 20 MEQ/15 ML ONE (23:11)
--- NOTE | 2019-03-16 23:27 | HP ---
CHIEF COMPLAINT: Abdominal pain, constipation PCP: Dr. Pérez HISTORY OF PRESENT ILLNESS: 83 year old male with PMhx of Chronic constipation, gastritis, Hiatal hernia, diverticulosis, prostate ca, BPH, HTN, HLD, A-fib arrived to ED for constipation, abdominal pain for 10 days, patient tried miralax and prune juice at home without relief. Patient last admitted on 03/10 for constipation gave fleet enema for 3 days and miralax 3x a day for 5 days Last colonoscopy was 2 years ago which showed diverticulosis and polyps, but no obstruction. Dr. Mott recommended doing mineral oil enemas instead of Fleet enemas. Patient denies sob,cp, headache, dizziness, N/V, diarrhea, frequency, urgency or hematuria. ER course was notable for: (1)CTAP: No acute pathology (2) GI Dr. Mott recommended mineral oil enemas (3) Na 121, K 3.3, Cl 81. Starting 500cc NS and giving 20meq K. Recent Travel: NO PAST MEDICAL HISTORY: Chronic constipation, gastritis, Hiatal hernia, diverticulosis, prostate ca, BPH, HTN, HLD, A-fib PAST SURGICAL HISTORY: PERFORATED STOMACH ULCER-PARTIAL GASTRECTOMY and appendectomy Social History: Smoking:no Alcohol:no Drugs: no Allergies: No Known Allergies Allergy (Verified 03/16/19 14:20) HOME MEDICATIONS: Home Medications Medication Instructions Recorded Aspirin Coated [Ecotrin -] 325 mg PO DAILY 11/17/15 Atorvastatin Ca [Lipitor] 40 mg PO HS 11/17/15 Potassium Chloride [Klor-Con 10] 10 meq PO DAILY 07/23/17 Tamsulosin HCl [Flomax] 0.4 mg PO DAILY 07/23/17 Ascorbic Acid [Vitamin C -] 1,000 mg PO DAILY tablet 10/18/18 Atenolol [Tenormin] 200 mg PO BID 12/04/18 Furosemide [Lasix] 20 mg PO DAILY 12/04/18 Garlic 1,000 mg PO DAILY 12/04/18 Milk Thistle 500 mg PO BID 12/04/18 Multivitamins [Tab-A-Vit -] 1 tab PO DAILY 12/04/18 [place]-3S/Dha/Epa/Fish Oil [Fish 1 each PO DAILY 12/04/18 Oil 1,200 mg Softgel] Saw [place] 320 mg PO DAILY 12/04/18 Valsartan/Hydrochlorothiazide 1 each PO BID 12/04/18 [Valsartan-Hctz 160-12.5 mg Tab] REVIEW OF SYSTEMS CONSTITUTIONAL: Absent: fever, chills, diaphoresis, generalized weakness HEENT: Absent: rhinorrhea, nasal congestion, throat pain, throat swelling CARDIOVASCULAR: Absent: chest pain, syncope, palpitations, irregular heart rate , lightheadedness, peripheral edema RESPIRATORY: Absent: cough, shortness of breath, dyspnea with exertion, orthopnea, wheezing, stridor, hemoptysis GASTROINTESTINAL: + abdominal pain, constipation GENITOURINARY: Absent: dysuria, frequency, urgency, hesitancy, hematuria, flank pain, genital pain MUSCULOSKELETAL: Absent: myalgia, arthralgia, joint swelling, back pain, neck pain SKIN: Absent: rash, itching, pallor NEUROLOGIC: Absent: headache, focal weakness or paresthesias, dizziness PSYCHIATRIC: Absent: anxiety, depression, suicidal or homicidal ideation, hallucinations. PHYSICAL EXAMINATION Vital Signs - 24 hr 03/16/19 14:18 Temperature 98.6 F Pulse Rate 71 Respiratory 18 Rate Blood Pressure 112/67 O2 Sat by Pulse 100 Oximetry (%) GENERAL: awake,alert, NAD HEENT:NC/AT, EOMI, PERRLA, No JVD LUNGS: Breath sounds equal, clear to auscultation bilaterally. HEART: Regular rate and rhythm, normal S1 and S2 without murmur, rub or gallop. ABDOMEN: Soft, nontender, non distended, BS + EXTREMITIES: Normal range of motion, no edema. NEUROLOGICAL: Cranial nerves II through XII grossly intact. Normal speech. No focal neurological deficits. SKIN: Warm, Dry Laboratory Results - last 24 hr 03/16/19 03/16/19 03/16/19 17:08 17:08 17:08 WBC 5.9 RBC 4.29 Hgb 14.3 Hct 38.2 MCV 89.1 D MCH 33.3 MCHC 37.3 H RDW 12.6 Plt Count 176 MPV 9.2 Absolute Neuts (auto) 4.0 Neutrophils % 67.1 Lymphocytes % 19.0 Monocytes % 12.4 H Eosinophils % 0.9 Basophils % 0.6 Nucleated RBC % 0 PT with INR 11.80 INR 1.00 PTT (Actin FS) 29.1 Sodium Potassium Chloride Carbon Dioxide Anion Gap BUN Creatinine Est GFR (CKD-EPI)AfAm Est GFR (CKD-EPI)NonAf Random Glucose Lactic Acid 0.9 Calcium Total Bilirubin AST ALT Alkaline Phosphatase Total Protein Albumin 03/16/19 17:08 WBC RBC Hgb Hct MCV MCH MCHC RDW Plt Count MPV Absolute Neuts (auto) Neutrophils % Lymphocytes % Monocytes % Eosinophils % Basophils % Nucleated RBC % PT with INR INR PTT (Actin FS) Sodium 121 L Potassium 3.3 L Chloride 81 L Carbon Dioxide 31 Anion Gap 9 BUN 12.3 Creatinine 0.7 Est GFR (CKD-EPI)AfAm 100.44 Est GFR (CKD-EPI)NonAf 86.66 Random Glucose 116 H Lactic Acid Calcium 8.7 Total Bilirubin 1.9 H AST 24 ALT 23 Alkaline Phosphatase 63 Total Protein 6.7 Albumin 3.9 ASSESSMENT/PLAN: 83 year old male with PMHx of Chronic constipation, gastritis, Hiatal hernia, diverticulosis, prostate ca, BPH, HTN, HLD, A-fib arrived to ED for constipation, abdominal pain for 10 days despite taking miralax and prune juice. # constipation # Electrolyte imbalance - Hypokalemia - Hyponatremia - CTAP- no acute pathology - GI consult Dr. Mott recommended doing mineral oil enemas - followup GI consult in AM - Monitor for bowel movement - Monitor for N/V # HTN - continue with Valsartan- HCTZ - Continue with lasix - Continue with Atenolol # HLD - Continue with lipitor # A-fib - monitor HR Problem List - Problem (1) Hypokalemia Code(s): E87.6 - HYPOKALEMIA (2) Hyponatremia Code(s): E87.1 - HYPO-OSMOLALITY AND HYPONATREMIA (3) Abdominal pain Code(s): R10.9 - UNSPECIFIED ABDOMINAL PAIN Qualifiers: Abdominal location: lower abdomen, unspecified Qualified Code(s): R10.30 - Lower abdominal pain, unspecified (4) Constipated Code(s): K59.00 - CONSTIPATION, UNSPECIFIED Qualifiers: Constipation type: other constipation type Qualified Code(s): K59.09 - Other constipation (5) A-fib Code(s): I48.91 - UNSPECIFIED ATRIAL FIBRILLATION (6) Hypertension Code(s): I10 - ESSENTIAL (PRIMARY) HYPERTENSION Qualifiers: (7) HLD (hyperlipidemia) Code(s): E78.5 - HYPERLIPIDEMIA, UNSPECIFIED Visit type - Emergency Visit Emergency Visit: Yes ED Registration Date: 03/16/19 Care time: The patient presented to the Emergency Department on the above date and was hospitalized for further evaluation of their emergent condition. - New Patient This patient is new to me today: Yes Date on this admission: 03/16/19 - Critical Care Critical Care patient: No
[2019-03-16] MEDS ORDERED: MELATONIN 5 MG TABLETS PO ONE (23:33)
[2019-03-17 01:10] VITALS: BP 145/68; PULSE 68; TEMP 97.7
[2019-03-17] MEDS ORDERED: POLYETHYLENE GLYCOL 3350 119 GM BTL PO ONE (02:10)
--- NOTE | 2019-03-17 04:32 | HOSP ---
Subjective - Review of Symptoms Events since last encounter: Mark Beatty has decided to leave against medical advice because he does not want to stay in ED, explained to patient when bed becomes available we will transfer him to the unit. Does not want to comply would like to leave. The patient has normal mental status and adequate capacity to make medical decisions. The risk have been explained to the patient regarding electrolyte imbalance hypokalemia and hyponatremia, possibility of arrhythmias, worsening illnesss, chronic pain permanent disability and . Patient refuses to sign AMA form, witness by nursing staff, and ED staff, left ED without any acute injuries. . Physical Examination Vital Signs: Vital Signs Temperature 97.7 F 03/17/19 00:55 Pulse Rate 68 03/17/19 00:55 Respiratory Rate 16 03/17/19 00:55 Blood Pressure 145/68 03/17/19 00:55 O2 Sat by Pulse Oximetry (%) 97 03/17/19 00:55 Constitutional: Yes: No Distress Eyes: Yes: Conjunctiva Clear HENT: Yes: Atraumatic, Normocephalic Neck: Yes: Supple Cardiovascular: Yes: Regular Rate and Rhythm Respiratory: Yes: Regular Neurological: Yes: Alert, Oriented Labs: CBC, BMP 03/16/19 17:08 03/16/19 17:08 Hospitalist Encounter Assessment: Patient left against medical advise, risks were explained and verbalized understanding. However refused to sign AMA form and left the ED unit.
[2019-03-17] MEDS ORDERED: TAMSULOSIN HCL 0.4 MG CAP PO SCH (08:30)
[2019-03-17] MEDS ORDERED: VALSARTAN 160 MG TABLET (UD) PO SCH (10:00)
[2019-03-17] MEDS ORDERED: ATENOLOL 200 MG PO SCH (10:00)
[2019-03-17] MEDS ORDERED: FUROSEMIDE 20 MG TABLET (FP) PO SCH (10:00)
[2019-03-17] MEDS ORDERED: HEPARIN NA (PORCINE) 5,000 UNITS/ML 1ML VIAL SQ SCH (10:00)
[2019-03-17] MEDS ORDERED: HYDROCHLOROTHIAZIDE 12.5 MG CAPSULE (FP) PO SCH (10:00)
--- NOTE | 2019-03-17 13:01 | CON.GI ---
Consult Consult Specialty:: Gastroenterology Referred by:: Rubens Barroso MD Reason for Consultation:: Constipation - History of Present Illness Chief Complaint: Constipation with bloating discomfort History of Present Illness: 83M with chronic constipation presenst with c/o worsening constipation with bloating discomfort despite taking Miralax multiple times daily. He is found to be hyponatremic and dehydrated. He also take hydrochlorthiazide. He last had a colonoscopy with hi on 07/26/17 which revealed moderate universal diverticulosis and led to the removal of hyperplastic rectal polyps and a lymphoid aggregate polyp from the descending colon. . - History Source History Provided By: Patient Limitations to Obtaining History: No Limitations - Past Medical History FUR IRONER: Yes: Dementia, Seizure Cardio/Vascular: Yes: CAD (with PES at [facility] on 01/28/03), HTN, Hyperlipdemia, Other (peripheral vascular disease with LLE stent) Gastrointestinal: Yes: Diverticulosis, Gastritis (H. pylori gastritis 1991), Peptic Ulcer Disease (gastric surgery for bleeding ulcer) Renal/: Yes: BPH Musculoskeletal: Yes: Chronic low back pain - Past Surgical History Past Surgical History: Yes: Appendectomy, Cataract Removal (right side), Colonoscopy, Hernia Repair (LIH (mesh) and RIH surgery), Upper Endoscopy Additional Surgical History: Gastric ulcer surgery. 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 (year): age 39 History of Recent Travel: No Home Medications - Allergies Allergies/Adverse Reactions: Allergies Allergy/AdvReac Type Severity Reaction Status Date / Time No Known Allergies Allergy Verified 03/16/19 14:20 - Home Medications Home Medications: Ambulatory Orders Aspirin Coated [Ecotrin -] 325 mg PO DAILY 11/17/15 Atorvastatin Ca [Lipitor] 40 mg PO HS 11/17/15 Potassium Chloride [Klor-Con 10] 10 meq PO DAILY 07/23/17 Tamsulosin HCl [Flomax] 0.4 mg PO DAILY 07/23/17 Ascorbic Acid [Vitamin C -] 1,000 mg PO DAILY tablet 10/18/18 Atenolol [Tenormin] 200 mg PO BID 12/04/18 Furosemide [Lasix] 20 mg PO DAILY 12/04/18 Garlic 1,000 mg PO DAILY 12/04/18 Milk Thistle 500 mg PO BID 12/04/18 Multivitamins [Tab-A-Vit -] 1 tab PO DAILY 12/04/18 [place]-3S/Dha/Epa/Fish Oil [Fish Oil 1,200 mg Softgel] 1 each PO DAILY 12/04/18 Saw [place] 320 mg PO DAILY 12/04/18 Valsartan/Hydrochlorothiazide [Valsartan-Hctz 160-12.5 mg Tab] 1 each PO BID 03/17 Family Disease History - Family Disease History Family Disease History: Heart Disease: Father ( 82 of [place]), Other: Mother ( 85 natural causes) Review of Systems - Review of Systems Constitutional: reports: Lethargy, Loss of Appetite, Malaise Eyes: reports: No Symptoms HENT: reports: No Symptoms Neck: reports: No Symptoms Cardiovascular: reports: No Symptoms Respiratory: reports: No Symptoms Gastrointestinal: reports: Abdominal Pain, Bloating, Constipation Physical Exam-GI Vital Signs: Vital Signs Temperature 97.7 F 03/17/19 00:55 Pulse Rate 68 03/17/19 00:55 Respiratory Rate 16 03/17/19 00:55 Blood Pressure 145/68 03/17/19 00:55 O2 Sat by Pulse Oximetry (%) 97 03/17/19 00:55 CBC,CMP WBC 5.9 K/mm3 (4.0-10.0) 03/16/19 17:08 RBC 4.29 M/mm3 (4.00-5.60) 03/16/19 17:08 Hgb 14.3 GM/dL (11.7-16.9) 03/16/19 17:08 Hct 38.2 % (35.4-49) 03/16/19 17:08 MCV 89.1 fl (80-96) D 03/16/19 17:08 MCH 33.3 pg (25.7-33.7) 03/16/19 17:08 MCHC 37.3 g/dl (32.0-35.9) H 03/16/19 17:08 RDW 12.6 % (11.9-15.9) 03/16/19 17:08 Plt Count 176 K/MM3 (134-434) 03/16/19 17:08 MPV 9.2 fl (7.5-11.1) 03/16/19 17:08 Absolute Neuts (auto) 4.0 K/mm3 (1.5-8.0) 03/16/19 17:08 Neutrophils % 67.1 % (42.8-82.8) 03/16/19 17:08 Lymphocytes % 19.0 % (8-40) 03/16/19 17:08 Monocytes % 12.4 % (3.8-10.2) H 03/16/19 17:08 Eosinophils % 0.9 % (0-4.5) 03/16/19 17:08 Basophils % 0.6 % (0-2.0) 03/16/19 17:08 Nucleated RBC % 0 % (0-0) 03/16/19 17:08 Sodium 121 mmol/L (136-145) L 03/16/19 17:08 Potassium 3.3 mmol/L (3.5-5.1) L 03/16/19 17:08 Chloride 81 mmol/L (98-107) L 03/16/19 17:08 Carbon Dioxide 31 mmol/L (21-32) 03/16/19 17:08 Anion Gap 9 MMOL/L (8-16) 03/16/19 17:08 BUN 12.3 mg/dL (7-18) 03/16/19 17:08 Creatinine 0.7 mg/dL (0.55-1.3) 03/16/19 17:08 Est GFR (CKD-EPI)AfAm 100.44 03/16/19 17:08 Est GFR (CKD-EPI)NonAf 86.66 03/16/19 17:08 Random Glucose 116 mg/dL (74-106) H 03/16/19 17:08 Lactic Acid 0.9 mmol/L (0.4-2.0) 03/16/19 17:08 Calcium 8.7 mg/dL (8.5-10.1) 03/16/19 17:08 Total Bilirubin 1.9 mg/dL (0.2-1) H 03/16/19 17:08 AST 24 U/L (15-37) 03/16/19 17:08 ALT 23 U/L (13-61) 03/16/19 17:08 Alkaline Phosphatase 63 U/L (45-117) 03/16/19 17:08 Total Protein 6.7 g/dl (6.4-8.2) 03/16/19 17:08 Albumin 3.9 g/dl (3.4-5.0) 03/16/19 17:08 Current Medications Generic Name Dose Route Start Last Admin Trade Name Freq PRN Reason Stop Dose Admin Atorvastatin Calcium 40 mg 03/17/19 22:00 Lipitor - PO HS SIDNEY Furosemide 20 mg 03/17/19 10:00 Lasix - PO DAILY SIDNEY Heparin Sodium (Porcine) 5,000 unit 03/17/19 10:00 Heparin - SQ BID SIDNEY Hydrochlorothiazide 12.5 mg 03/17/19 10:00 Hctz - PO BID SIDNEY Sodium Chloride 500 mls @ 125 mls/hr 03/16/19 18:30 03/16/19 18:47 Normal Saline - IV 125 mls/hr ASDIR SIDNEY Administration Non-Formulary Medication 200 mg 03/17/19 10:00 Atenolol [Tenormin] PO BID SIDNEY Tamsulosin HCl 0.4 mg 03/17/19 08:30 Flomax - PO DAILY@0830 SIDNEY Valsartan 160 mg 03/17/19 10:00 Diovan - PO BID SIDNEY Labs: CBC, BMP 03/16/19 17:08 03/16/19 17:08 INR, PTT INR 1.00 (0.83-1.09) 03/16/19 17:08 Imaging - Results Cat Scan: Report Reviewed ( Final Report CT ABDOMEN & PELVIS CT WITH CONTR Show Printer-Friendly Version with Image (1 of 1) Show Printer- Friendly Version without images Patient Name: Chasity Red : 1934 ID: [id number] Study Date: 16-Mar-2019 19:40 [facility] Name : [facility] DEPARTMENT OF RADIOLOGY Phys: Macho Castrejon RESIDENT : 1935 Age: 83 Sex: M [facility] Acct: [id number] Loc: [address] Exam Date: 03/16/19 Status: [place] [id number] Unit Number: [id number] EXAM#: TYPE/EXAM: RESULT: [id number] CT/ABDOMEN PELVIS CT WITH CONTR Abdomen and pelvis CT with contrast Clinical information: abdominal pain, constipation for 10 days Multiplanar imaging was performed utilizing intravenous as well as oral contrast. No evidence of pneumoperitoneum, abscess, free intraperitoneal fluid or bowel obstruction. The appendix is not definitely visualized however there are no indirect CT signs of acute appendicitis. No CT evidence of acute diverticulitis or obvious colitis. No gross small bowel pathology is seen. No definite interval change is identified in comparison to a prior CT study of 01/28/2018. Pleural calcifications are noted along the right diaphragmatic surface posteriorly. Stable 1 cm left hepatic lobe cyst. Moderate left renal cortical scarring. Left adrenal gland thickening. The spleen, pancreas, gallbladder, right adrenal gland and right kidney demonstrate no discrete abnormality. Mild diffuse atherosclerotic dilatation of the abdominal aorta. Somewhat extensive atherosclerotic aortoiliac mural changes. No definite lymphadenopathy is seen. Mild to moderate prostate enlargement. Possible transurethral surgery. The visualized osseous structures demonstrate no gross CT evidence of acute abnormality. Moderate colonic fecal retention. Probable bilateral inguinal hernia repairs. No recurrent herniation is noted. IMPRESSION: No definite CT findings of acute pathology are identified. There has been no definite interval change in comparison to a prior exam of 01/28/2018. Moderate left renal cortical scarring. Stable left adrenal gland thickening consistent with either nodular hyperplasia versus subcentimeter adenomas. Right diaphragmatic pleural calcification. Small stable left hepatic lobe cyst. Colonic fecal retention which is probably moderate. Reported By: Oni Herrera MD 03/16/192026 MACHO CASTREJON Technologist: Donny Carrillo Transcribed Date/Time: 03/16/192026 Director Of Scout Work: Oni Herrera Printed Date/Time: By: Signed by: Oni Herrera Signed on : 16-Mar-2019 20:28)
[2019-03-17] MEDS ORDERED: ATORVASTATIN CA 40 MG TABLET (FP) PO SCH (22:00)
== END 2019-03-17 04:00 | disposition left against medical advice (07) | DRG 392 ==
LOC: JER 14:11 → JERBED 20:34
PROVIDERS: ADMIT Internal Medicine; ATTEND Internal Medicine
DX: K59.00 Constipation, unspecified (principal); E87.1 Hypo-osmolality and hyponatremia; I10 Essential (primary) hypertension; E78.5 Hyperlipidemia, unspecified; I48.91 Unspecified atrial fibrillation; I25.10 Atherosclerotic heart disease of native coronary artery without angina pectoris; K76.89 Other specified diseases of liver; K29.70 Gastritis, unspecified, without bleeding; K57.90 Diverticulosis of intestine, part unspecified, without perforation or abscess without bleeding; K44.9 Diaphragmatic hernia without obstruction or gangrene; E87.6 Hypokalemia; N40.0 Benign prostatic hyperplasia without lower urinary tract symptoms; Z85.46 Personal history of malignant neoplasm of prostate; Z85.828 Personal history of other malignant neoplasm of skin
CPT/HCPCS: 36415; 74019-TC-FY; 74177-TC; 80053; 83605; 85025; 85610; 85730; 99283-25; J7030; Q9967

== ENCOUNTER 2020-10-16 16:13 | Emergency (ER) | payer OTHER ==
[2020-10-16 16:27] VITALS: TEMP 97.8; BMI 31.1
[2020-10-16 18:26] LABS: BASO % 0.9 % (0-2.0); EOS % 0.7 % (0-4.5); HEMATOCRIT 35.9 % (35.4-49); HEMOGLOBIN 13.2 GM/dL (11.7-16.9); LYMPH % 9.3 % (8-40); MCH 32.8 pg (25.7-33.7); MCHC 36.7 g/dl (32.0-35.9); MEAN CELL VOLUME 89.4 fl (80-96); MEAN PLT VOLUME 10.2 fl (7.5-11.1); MONO % 7.3 % (3.8-10.2); NEUT % 81.8 % (42.8-82.8); PLATELET COUNT 173 K/MM3 (134-434); RBC 4.01 M/mm3 (4.00-5.60); RDW 13.6 % (11.9-15.9); WHITE BLOOD COUNT 5.4 K/mm3 (4.0-10.0)
[2020-10-16 18:42] LABS: POTASSIUM 3.7 mmol/L (3.5-5.1)
[2020-10-16 18:44] LABS: CALCIUM 8.6 mg/dL (8.5-10.1)
[2020-10-16 18:45] LABS: ALBUMIN 3.6 g/dl (3.4-5.0); BLOOD UREA NITROGEN 15.4 mg/dL (7-18)
[2020-10-16] MEDS ORDERED: SODIUM CHLORIDE 0.9% 500 ML INFUS.BAG IV ONE (18:45)
[2020-10-16 18:48] LABS: CREATININE 0.9 mg/dL (0.55-1.3)
[2020-10-16 18:50] LABS: BILIRUBIN,TOTAL 1.1 mg/dL (0.2-1); TOT PROT 6.8 g/dl (6.4-8.2)
[2020-10-16 18:56] LABS: MAGNESIUM 2.1 mg/dL (1.8-2.4)
[2020-10-16 18:59] LABS: BILIRUBIN,DIRECT 0.1 mg/dL (0.0-0.2)
[2020-10-16 19:23] LABS: PH,URINE 6.5 (5.0-8.0); URINE APPEARANCE CLEAR; URINE BILIRUBIN NEGATIVE (NEGATIVE); URINE COLOR YELLOW; URINE GLUCOSE (UA) NEGATIVE (NEGATIVE); URINE KETONE NEGATIVE (NEGATIVE); URINE LEUK ESTERASE TRACE (NEGATIVE); URINE NITRITE NEGATIVE (NEGATIVE); URINE PROTEIN NEGATIVE (NEGATIVE)
[2020-10-16 19:54] LABS: CHLORIDE 85 mmol/L (98-107); POTASSIUM 3.1 mmol/L (3.5-5.1); SODIUM 124 mmol/L (136-145)
[2020-10-16 19:55] LABS: ANION GAP 8 MMOL/L (8-16); BLOOD UREA NITROGEN 15.5 mg/dL (7-18); CALCIUM 8.5 mg/dL (8.5-10.1); CO2 31 mmol/L (21-32); GLUCOSE,RANDOM 114 mg/dL (74-106)
[2020-10-16 19:58] LABS: CREATININE 0.9 mg/dL (0.55-1.3)
[2020-10-16] MEDS ORDERED: POTASSIUM CHLORIDE TABS 20 MEQ TABLET.ER (FP) PO ONE ×2 (20:07→20:40)
[2020-10-16 20:11] VITALS: BP 169/84; PULSE 56
== END 2020-10-16 20:59 | disposition left against medical advice (07) ==
LOC: JER 16:13 → SUPCPDRO 16:13 → JER 20:59
DX: E87.6 Hypokalemia (principal); E87.1 Hypo-osmolality and hyponatremia
CPT/HCPCS: 36415; 71046-TC-FY; 80048; 80053; 81003; 82248; 82565; 82728; 83615; 83735; 83880; 84300; 85025; 86140; 87804; 93005; 93010; 99285-25; C9803; U0003

== ENCOUNTER 2020-10-24 16:55 | Observation (INO) | payer OTHER ==
[2020-10-24 17:40] VITALS: BMI 26.6
[2020-10-24 21:52] LABS: BASO % 0.6 % (0-2.0); EOS % 0.3 % (0-4.5); HEMATOCRIT 38.9 % (35.4-49); HEMOGLOBIN 14.2 GM/dL (11.7-16.9); LYMPH % 21.2 % (8-40); MCH 32.5 pg (25.7-33.7); MCHC 36.5 g/dl (32.0-35.9); MEAN CELL VOLUME 89.1 fl (80-96); MEAN PLT VOLUME 8.7 fl (7.5-11.1); MONO % 11.1 % (3.8-10.2); NEUT % 66.8 % (42.8-82.8); PLATELET COUNT 158 K/MM3 (134-434); RBC 4.36 M/mm3 (4.00-5.60); RDW 13.1 % (11.9-15.9); WHITE BLOOD COUNT 6.1 K/mm3 (4.0-10.0)
[2020-10-24 22:11] LABS: POTASSIUM 3.2 mmol/L (3.5-5.1)
[2020-10-24 22:13] LABS: CALCIUM 8.8 mg/dL (8.5-10.1)
[2020-10-24 22:14] LABS: BLOOD UREA NITROGEN 12.7 mg/dL (7-18)
[2020-10-24 22:17] LABS: CREATININE 0.8 mg/dL (0.55-1.3)
[2020-10-24 22:18] LABS: BILIRUBIN,TOTAL 1.6 mg/dL (0.2-1); TOT PROT 7.2 g/dl (6.4-8.2)
[2020-10-25] MEDS ORDERED: ACETAMINOPHEN 1000 MG/100 ML VIAL (NON FORMULARY) IVPB ONE (00:09)
[2020-10-25] MEDS ORDERED: ASPIRIN 81 MG CHEWABLE TABLETS PO ONE (00:10)
[2020-10-25] MEDS ORDERED: POTASSIUM CHLORIDE ORAL LIQUID 20 MEQ/15 ML PO ONE (00:10)
[2020-10-25] MEDS ORDERED: ASPIRIN 81 MG CHEWABLE TABLETS ONE (01:07)
[2020-10-25] MEDS ORDERED: POTASSIUM CHLORIDE ORAL LIQUID 20 MEQ/15 ML ONE (01:07)
[2020-10-25] MEDS ORDERED: ACETAMINOPHEN INJECTION 100 ML IVPB ONE (01:07)
[2020-10-25 05:31] VITALS: TEMP 98.4
[2020-10-25 06:44] LABS: HEMATOCRIT 36.6 % (35.4-49); HEMOGLOBIN 13.6 GM/dL (11.7-16.9); MCHC 37.2 g/dl (32.0-35.9); MEAN CELL VOLUME 88.8 fl (80-96); MEAN PLT VOLUME 8.4 fl (7.5-11.1); RBC 4.12 M/mm3 (4.00-5.60); WHITE BLOOD COUNT 4.2 K/mm3 (4.0-10.0)
[2020-10-25] MEDS ORDERED: ENOXAPARIN NA (PORCINE) 40 MG/0.4 ML DISP.SYRIN SQ SCH (10:00)
[2020-10-25 10:06] VITALS: BP 140/69; PULSE 60
[2020-10-25 11:59] LABS: PLATELET COUNT 45 K/MM3 (134-434)
== END 2020-10-25 14:15 | disposition left against medical advice (07) ==
LOC: JER 16:55 → INTOOBSV 10-25 02:10 → JERBED 10-25 02:10
PROVIDERS: ADMIT Internal Medicine; ATTEND Internal Medicine
PROC: 3E033NZ Introduction of Analgesics, Hypnotics, Sedatives into Peripheral Vein, Percutaneous Approach (ICD-10-PCS; principal; 2020-10-25)
DX: I21.4 Non-ST elevation (NSTEMI) myocardial infarction (principal); I49.9 Cardiac arrhythmia, unspecified; I10 Essential (primary) hypertension; K57.92 Diverticulitis of intestine, part unspecified, without perforation or abscess without bleeding; R00.2 Palpitations; I25.10 Atherosclerotic heart disease of native coronary artery without angina pectoris; Z87.891 Personal history of nicotine dependence; Z85.46 Personal history of malignant neoplasm of prostate; E87.6 Hypokalemia; I48.91 Unspecified atrial fibrillation; E87.1 Hypo-osmolality and hyponatremia; Z85.828 Personal history of other malignant neoplasm of skin; K29.70 Gastritis, unspecified, without bleeding; K46.9 Unspecified abdominal hernia without obstruction or gangrene; N40.0 Benign prostatic hyperplasia without lower urinary tract symptoms; Z99.89 Dependence on other enabling machines and devices; K59.09 Other constipation; E78.5 Hyperlipidemia, unspecified
CPT/HCPCS: 36415; 70450-TC; 71046-TC-FY; 80053; 82550; 84484; 85025; 85027; 93005; 93010; 96374; 99285-25; C9803; G0378; J0131; U0003

== ENCOUNTER 2022-10-10 10:21 | Emergency (ER) | payer OTHER ==
[2022-10-10 10:49] VITALS: BP 135/72; PULSE 108; RESP 18; TEMP 98.3; BMI 24.3
[2022-10-10 12:22] LABS: BASO % 0.8 % (0-2.0); EOS % 2.4 % (0-4.5); HEMOGLOBIN 13.2 GM/dL (11.7-16.9); LYMPH % 16.7 % (8-40); MCH 32.9 pg (25.7-33.7); MCHC 35.6 g/dl (32.0-35.9); MEAN CELL VOLUME 92.4 fl (80-96); NEUT % 68.1 % (42.8-82.8); PLATELET COUNT 196 10^3/uL (134-434); RDW 13.9 % (11.9-15.9); WHITE BLOOD COUNT 6.1 K/mm3 (4.0-10.0)
[2022-10-10 12:29] LABS: INR 1.07 (0.83-1.09); PROTHROMBIN TIME (PATIENT) 12.4 SEC (9.7-13.0)
[2022-10-10 12:32] LABS: ACTIVATED PTT 29.9 SECONDS (25.2-36.5)
[2022-10-10 13:06] LABS: BLOOD UREA NITROGEN 17.6 mg/dL (7-18); CALCIUM 8.5 mg/dL (8.5-10.1)
[2022-10-10 13:09] LABS: CREATININE 0.8 mg/dL (0.55-1.3)
[2022-10-10 13:10] LABS: BILIRUBIN,TOTAL 0.9 mg/dL (0.2-1); TOT PROT 6.4 g/dl (6.4-8.2)
[2022-10-10 14:02] LABS: N-TERMINAL BNP 1212.8 pg/ml (5-450)
[2022-10-10 15:16] LABS: EPI CELLS 2 /uL (0-25.1); HYALINE CASTS 0 /uL (0-3.1); URINE APPEARANCE TURBID; URINE BACTERIA 3007 /uL (0-1359); URINE BILIRUBIN NEGATIVE (NEGATIVE); URINE COLOR YELLOW; URINE GLUCOSE (UA) NEGATIVE (NEGATIVE); URINE KETONE NEGATIVE (NEGATIVE); URINE LEUK ESTERASE 3+ (NEGATIVE); URINE NITRITE POSITIVE (NEGATIVE); URINE PROTEIN 1+ (NEGATIVE); URINE RBC 71 /uL (0-23.9); URINE WBC 8570 /uL (0-25.8)
== END 2022-10-10 16:25 | disposition left against medical advice (07) ==
LOC: JER 10:21
DX: R07.9 Chest pain, unspecified (principal)
CPT/HCPCS: 36415; 71045-TC-FY; 80053; 81003; 82550; 83880; 84484; 85025; 85610; 85730; 93005; 93010; 99285-25